=== PATIENT | female | born 1935 | race Caucasian/White ===

== ENCOUNTER → 2016-10-10 | Outpatient (CLI) | payer MEDICARE, OTHER ==
[~2016-10-10] MED LIST: GABA-488 PO; GLIP10TA13 PO; HYDR-3812 PO; LISI10TA2 PO; LISI5TAB14 PO; LVT.1T PO; METF-380 PO; SITA100T PO; TRAM-42 PO
--- OUTSIDE RECORDS SUMMARY | 2016-10-10 10:57 | XMS REPORT | Continuity of Care Document ---
Author Author [facility] Organization [facility] Address Unknown Phone Unavailable Care Team Providers Care Supervising Architect Name Role Phone JUANITA MASCORRO MD PCP Insurance Providers Payer Name Policy Number Subscriber Name Relationship [employer] [id number] Edson Zabala 18 Self / Same As Patient Comm Crossover Enter Ins Name [id number] Edson Zabala 18 Self / Same As Patient Advance Directives Directive Response Recorded Date/Time Advance Directives No 05/01/16 11:07am Health Care Power of Automated Teller Manager No 05/01/16 11:07am Organ Donor Yes 05/01/16 11:07am Resuscitation Status Full Code 05/01/16 11:07am Problems No problem information available. Medications Current Home Medications Medication Dose Units Route Directions Days/Qty Instructions Start Date Glipizide (Glucotrol) 10 Mg 10 Mg Oral Bedtime 02/15/15 Gabapentin 300 Mg 300 Mg Oral Three Times A Day 02/15/15 Levothyroxine Sodium (Levothroid) 100 Mcg 100 Mcg Oral Daily Metformin Hcl (Glucophage) 1,000 Mg 1,000 Mg Oral Bedtime 02/15/15 Sitagliptin Phosphate 100 Mg 100 Mg Oral Bedtime 02/15/15 Lisinopril 10 Mg 5 Mg Oral Daily TAKE 1/2 OF (10MG) TAB 02/19/15 Hydrocodone/Acetaminophen 1 Each 1 Each Oral Every 4HRS as needed for Pain 04/29/15 Tramadol Hcl 50 Mg 50 Mg Oral Every 12 Hours as needed for Pain 30 Past Home Medications Medication Directions Ordered Status Lisinopril (Lisinopril 5MG) 5 Mg Tablet, 5 Mg Oral Daily 02/15/15 Discontinued Social History Social History Problem Response Recorded Date/Time Alcohol Use Denies Use 04/30/2015 12:23pm Recreational Drug Use No 04/30/2015 12:23pm Recent Foreign Travel No 05/01/2016 11:16am Recent Infectious Disease Exposure No 05/01/2016 11:16am Smoking Status Never a Smoker 05/01/2016 11:15am Do you dip or chew tobacco? No 02/22/2015 12:00pm Query Response Start Date Stop Date Smoking Status Never a Smoker Hospital Discharge Instructions Patient Instructions Physician Instructions New, Converted or Re-Newed RX: Other Plan of Care/Instructions/FU: repeat colonoscopy in 2 years Activity as Tolerated: Yes Discharge Diet: ADA Diet Pneu Vac Indicated: Yes Care Plan Patient Instructions:: repeat colonoscopy in 2 years Plan of Care Discharge Date 05/01/16 2:10pm Instructions/Education Provided COLONOSCOPY Prescriptions See Medication Section Functional Status No functional status results. Allergies, Adverse Reactions, Alerts Allergen Type Severity Reaction Status Last Updated Morphine Allergy Unknown Active 05/06/15 hydrocodone ([id number]) Allergy Unknown Active 05/06/15 Acetaminophen Allergy Unknown Active 05/06/15 Ibuprofen Allergy Unknown Active 05/06/15 ofloxacin ([id number]) Allergy Unknown Active 05/06/15 loratadine ([id number]) Allergy Unknown Active 05/06/15 atorvastatin ([id number]) Allergy Unknown Active 05/06/15 Immunizations No immunization records. Vital Signs Acute Vital Signs Vital Response Date/Time Temperature (Fahrenheit) 98.4 degrees F (97.6 - 99.5) 05/01/2016 2:10pm Temperature (Calculated Celsius) 36.03139 degrees C (36.4 - 37.5) 05/01/2016 2:10pm Temperature Source Tympanic 05/01/2016 2:10pm Pulse Rate (adult) 67 bpm (60 - 90) 05/01/2016 2:10pm Respiratory Rate 20 bpm (12 - 24) 05/01/2016 2:10pm O2 Sat by Pulse Oximetry 97 % (88 - 100) 05/01/2016 2:10pm Blood Pressure 120/52 mm Hg 05/01/2016 2:10pm Pain Numeric Pain Scale 0-No Pain 05/01/2016 2:10pm Pain Intensity 0 05/01/2016 2:00pm Height (Feet) 5 feet 05/01/2016 11:17am Height (Inches) 0.00 inches 05/01/2016 11:17am Height (Calculated Centimeters) 152.990496 cm 05/01/2016 11:17am Weight (Pounds) 151 pounds 05/01/2016 11:17am Weight (Ounces) 0.0 oz 05/01/2016 11:17am Weight (Calculated Grams) 76130.45 gm 05/01/2016 11:17am Weight (Calculated Kilograms) 68.658404 kilograms 05/01/2016 11:17am Calculated BMI 29.5 05/01/2016 11:17am Results No known relevant diagnostic tests, laboratory data and/or discharge summary. Procedures No known history of procedures. Encounters Encounter Location Arrival/Admit Date Discharge/Depart Date Attending Provider Departed [facility] 05/01/16 10:47am 05/01/16 2:10pm ROSEANNA ARIAS MD Departed Clinic [facility] 04/27/16 5:37am 04/27/16 12: 58pm ROSEANNA ARIAS MD Registered Clinic [facility] 04/11/16 11:03am TYRA LEZAMA
== END ==
LOC: FS 10:54
PROVIDERS: ATTEND Internal Medicine Hematology & Oncology
DX: C50.111 Malignant neoplasm of central portion of right female breast (principal); E11.40 Type 2 diabetes mellitus with diabetic neuropathy, unspecified; G62.9 Polyneuropathy, unspecified; I10 Essential (primary) hypertension; E78.00 Pure hypercholesterolemia, unspecified; L20.9 Atopic dermatitis, unspecified; Z17.1 Estrogen receptor negative status [ER-]; Z90.11 Acquired absence of right breast and nipple; Z79.899 Other long term (current) drug therapy; Z92.21 Personal history of antineoplastic chemotherapy; Z92.3 Personal history of irradiation
CPT/HCPCS: 99213

== ENCOUNTER → 2017-01-09 | Outpatient (CLI) | payer MEDICARE, OTHER | LOC: FS 13:29 | PROVIDERS: ATTEND Internal Medicine Hematology & Oncology | DX: C50.111 Malignant neoplasm of central portion of right female breast (principal); E11.40 Type 2 diabetes mellitus with diabetic neuropathy, unspecified; G62.9 Polyneuropathy, unspecified; I10 Essential (primary) hypertension; E78.00 Pure hypercholesterolemia, unspecified; Z17.1 Estrogen receptor negative status [ER-]; Z90.11 Acquired absence of right breast and nipple; Z79.899 Other long term (current) drug therapy; Z92.21 Personal history of antineoplastic chemotherapy; Z92.3 Personal history of irradiation | CPT/HCPCS: 99213 ==

== ENCOUNTER 2017-01-24 11:31 | Outpatient (CLI) | payer MEDICARE, OTHER ==
[~2017-01-24] VITALS: Ht 152.4 cm; Wt 69.9 kg
[2017-01-24 11:43] VITALS: BP 145/62
== END 2017-01-24 11:55 | disposition home or self-care (01) ==
LOC: PREOP 11:31
PROVIDERS: ATTEND Surgery
DX: Z01.818 Encounter for other preprocedural examination (principal); Z11.2 Encounter for screening for other bacterial diseases; C50.919 Malignant neoplasm of unspecified site of unspecified female breast
CPT/HCPCS: 87081

== ENCOUNTER 2017-01-31 09:50 | Day surgery (SDC) | payer MEDICARE, OTHER ==
[~2017-01-31] VITALS: Ht 152.4 cm; Wt 69.9 kg
[2017-01-31] MEDS ORDERED: ONDANSETRON 4 MG/2 ML (SDV) Z0FRAN ONE (10:14)
[2017-01-31] MEDS ORDERED: LACTATED RINGERS 1,000 ML IV PRN (10:14)
[2017-01-31] MEDS ORDERED: fentaNYL INJECTION 100 MCG/2 ML AMP ONE (10:14)
[2017-01-31] MEDS ORDERED: LACTATED RINGERS 1,000 ML IV ONE (10:14)
[2017-01-31] MEDS ORDERED: MIDAZOLAM 10 MG/2 ML (VERSED) VIAL ONE (10:14)
[2017-01-31] MEDS ORDERED: BUP/EPI 0.25% 1:200,000 (MARCAINE) 10 ML VIAL IJ ONE (10:16)
[2017-01-31 10:20] VITALS: BP 153/66
[2017-01-31] MEDS ORDERED: NS (IVPB) 50 ML ONE (10:32)
[2017-01-31] MEDS ORDERED: ceFAZolin 1,000 MG (ANCEF) VIAL ONE (10:32)
--- NOTE | 2017-01-31 10:38 | Progress Note-Pre Operative ---
Pre-Operative Progress Note H&P Reviewed The H&P was reviewed, patient examined and no changes noted. Date Seen by Provider: Jan 31, 2017 Time Seen by Provider: 10:38 Date H&P Reviewed: Jan 31, 2017 Time H&P Reviewed: 10:38 Pre-Operative Diagnosis: treated breast carcinoma ROSEANNA ARIAS MD Jan 31, 2017 10:38 am
--- OUTSIDE RECORDS SUMMARY | 2017-01-31 10:43 | XMS REPORT | Continuity of Care Document ---
Author Author [facility] Organization [facility] Address Unknown Phone Unavailable Allergies Active Description Code Type Severity Reaction Onset Reported/Identified Relationship to Patient Clinical Status Yes No Known Allergies [id number] Drug Allergy Unknown N/A 02/04/2015 Yes loratadine [id number] Drug Allergy Unknown N/A 05/06/2015 Yes morphine [id number] Drug Allergy Unknown N/A 05/06/2015 Yes ofloxacin [id number] Drug Allergy Unknown N/A 05/06/2015 Yes acetaminophen [id number] Drug Allergy Unknown N/A 05/01/2016 Yes atorvastatin [id number] Drug Allergy Unknown N/A 05/01/2016 Yes hydrocodone [id number] Drug Allergy Unknown N/A 05/01/2016 Yes ibuprofen [id number] Drug Allergy Unknown N/A 05/01/2016 Medications Problems Date Dx Coded Attending Type Code Diagnosis Diagnosed By 01/22/2015 TYRA LEZAMA N Ot 611.72 01/27/2015 TYRA LEZAMA N Ot 611.72 02/10/2015 TEJA, BOBAN N Ot 174.9 02/15/2015 JUANA SALMON, ROSEANNA Avery Ot 211.3 BENIGN NEOPLASM LG BOWEL 02/15/2015 JUANA SALMON, ROSEANNA Avery Ot V10.3 HX OF BREAST MALIGNANCY 02/15/2015 JUANA SALMON, ROESANNA Avery Ot V58.69 OT MED,LT,CURRENT USE 02/18/2015 TEJA, BOBAN N Ot 250.00 02/18/2015 TEJA, BOBAN N Ot 355.8 02/18/2015 TEJA, BOBAN N Ot 724.00 02/18/2015 TEJA BOBAN N Ot V10.3 02/18/2015 TEJA, BOBAN N Ot V58.69 02/18/2015 TEJA, BOBAN N Ot V67.1 02/18/2015 TEJA, BOBAN N Ot V67.2 02/24/2015 JUANA SALMON, ROSEANNA Avery Ot 174.9 02/24/2015 JUANA SALMON, ROSEANNA Avery Ot 250.00 02/24/2015 ROSEANNA ARIAS MD Ot 174.9 MALIGN NEOPL BREAST NOS 02/24/2015 JUANA SALMON, ROSEANNA Avery Ot 250.00 DIAB JOSÉ WO COMPL, TYPE II OR UNSPEC TY 02/24/2015 TYRA LEZAMA N Ot 174.9 02/26/2015 TYRA LEZAMA Ot 174.9 02/26/2015 CHON SALMON FACC, ALI FACP CCDS Ot 174.9 02/26/2015 CHON SALMON FACC, ALI FACP CCDS Ot 250.00 02/26/2015 CHON SALMON FACC, ALI FACP CCDS Ot 272.4 02/26/2015 CHON SALMON FACC, ALI FACP CCDS Ot 278.00 02/26/2015 CHON SALMON FACC, ALI FACP CCDS Ot 401.9 02/26/2015 CHON SALMON FACC, ALI FACP CCDS Ot V85.30 03/05/2015 TYRA LEZAMA Ot 174.9 03/15/2015 ROSEANNA ARIAS MD Ot 174.9 03/15/2015 JUANA SALMON, ROSEANNA Avery Ot V72.63 03/15/2015 JUANA SALMON, ROSEANNA Avery Ot V74.8 03/25/2015 TYRA LEZAMA Ot 174.9 03/25/2015 TYRA LEZAMA Ot 174.9 03/25/2015 CHON SALMON FACC, ALI FACP CCDS Ot 174.9 03/25/2015 CHON SALMON FACC, ALI FACP CCDS Ot 250.00 03/25/2015 CHON SALMON FACC, ALI FACP CCDS Ot 272.4 03/25/2015 CHON SALMON FACC, ALI FACP CCDS Ot 278.00 03/25/2015 CHON SALMON FACC, ALI FACP CCDS Ot 401.9 03/25/2015 CHON SALMON FACC, ALI FACP CCDS Ot V85.30 03/25/2015 TYRA LEZAMA N Ot 174.9 04/30/2015 ROSEANNA ARIAS MD Ot 174.9 MALIGN NEOPL BREAST NOS 04/30/2015 ROSEANNA ARIAS MD Ot 250.00 DIAB JOSÉ WO COMPL, TYPE II OR UNSPEC TY 04/30/2015 JUANA SALMON, ROSEANNA M Ot 786.6 04/30/2015 JUANA SALMON, ROSEANNA M Ot V45.71 05/19/2015 TEJA, BOBAN N Ot 174.9 05/19/2015 TEJA, BOBAN N Ot V15.3 05/19/2015 TEJA, BOBAN N Ot V45.71 05/19/2015 TEJA, BOBAN N Ot V58.69 05/19/2015 TEJA, BOBAN N Ot V87.41 05/31/2015 PASTRANA HILAH S AEROSPACE MEDICINE PHYSICIAN Ot C50.911 05/31/2015 PASTRANA, HILAH S AEROSPACE MEDICINE PHYSICIAN Ot E11.9 05/31/2015 PASTRANA, HILAH S AEROSPACE MEDICINE PHYSICIAN Ot E78.0 05/31/2015 PASTRANA, HILAH S AEROSPACE MEDICINE PHYSICIAN Ot G62.9 05/31/2015 PASTRANA, HILAH S AEROSPACE MEDICINE PHYSICIAN Ot I10 05/31/2015 PASTRANA HILAH S AEROSPACE MEDICINE PHYSICIAN Ot Z17.1 05/31/2015 PASTRANA, HILAH S AEROSPACE MEDICINE PHYSICIAN Ot Z79.899 05/31/2015 PASTRANA, HILAH S AEROSPACE MEDICINE PHYSICIAN Ot Z90.11 05/31/2015 PASTRANA, HILAH S AEROSPACE MEDICINE PHYSICIAN Ot Z92.21 05/31/2015 PASTRANA HILAH S AEROSPACE MEDICINE PHYSICIAN Ot Z92.3 06/03/2015 TEJA, BOBAN N Ot C50.911 06/03/2015 TEJA, BOBAN N Ot E11.9 06/03/2015 TEJA, BOBAN N Ot E78.0 06/03/2015 TEJA, BOBAN N Ot G62.9 06/03/2015 TEJA, BOBAN N Ot I10 06/03/2015 TEJA, BOBAN N Ot Z17.1 06/03/2015 TEJA, BOBAN N Ot Z51.11 06/03/2015 TEJA, BOBAN N Ot Z79.899 06/03/2015 TEJA, BOBAN N Ot Z90.11 06/03/2015 TEJA, BOBAN N Ot Z92.21 06/03/2015 TEJA, BOBAN N Ot Z92.3 06/30/2015 TEJA, BOBAN N Ot C50.911 06/30/2015 TEJA, BOBAN N Ot E11.9 06/30/2015 TEJA, VIRGILIOAN N Ot E78.0 06/30/2015 TEJA, BOBAN N Ot G62.9 06/30/2015 TEJA, BOBAN N Ot I10 06/30/2015 TEJA, BOBAN N Ot Z17.1 06/30/2015 TEJA, BOBAN N Ot Z51.11 06/30/2015 TEJA, BOBAN N Ot Z79.899 06/30/2015 TEJA, BOBAN N Ot Z90.11 06/30/2015 TEJA, BOBAN N Ot Z92.21 06/30/2015 TEJA, BOBAN N Ot Z92.3 2015 TEJA, BOBAN N Ot C50.911 2015 TEJA, TYRA N Ot E11.9 2015 TEJA, BOBSARAH N Ot E78.0 2015 TEJA, BOBAN N Ot G62.9 2015 TEJA, TYRA N Ot I10 2015 TEJA, BOBSARAH N Ot Z17.1 2015 TEJA, BOBAN N Ot Z51.11 2015 TEJA, BOBAN N Ot Z79.899 2015 TEJA, BOBAN N Ot Z90.11 2015 TEJA, BOBAN N Ot Z92.21 2015 TEJA, BOBAN N Ot Z92.3 08/04/2015 TEJA, BOBAN N Ot 174.9 MALIGN NEOPL BREAST NOS 08/04/2015 TEJA BOBAN N Ot 250.00 DIAB JOSÉ WO COMPL, TYPE II OR UNSPEC TY 08/04/2015 TEJA, BOBAN N Ot 272.0 PURE HYPERCHOLESTEROLEM 08/04/2015 TEJA BOBAN N Ot 357.9 INFLAM/TOX NEUROPTHY NOS 08/04/2015 TEJA, BOBAN N Ot C50.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 08/04/2015 TEJAVIRGILIOAN N Ot E11.9 TYPE 2 DIABETES MELLITUS WITHOUT COMPLIC 08/04/2015 TEJA BOBAN N Ot E78.0 PURE HYPERCHOLESTEROLEMIA 08/04/2015 TEJAVIRGILIOAN N Ot G62.9 POLYNEUROPATHY, UNSPECIFIED 08/04/2015 TEJA BOBAN N Ot I10 ESSENTIAL (PRIMARY) HYPERTENSION 08/04/2015 TYRA LEZAMA Ot V15.3 HX OF IRRADIATION 08/04/2015 TYRA LZEAMA Ot V45.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 08/04/2015 TYRA LEZAMA Ot V58.11 ENCOUNTER FOR ANTINEOPLASTIC CHEMOTHERAP 08/04/2015 TYRA LEZAMA Ot V58.69 OTH MED,LT,CURRENT USE 08/04/2015 TYRA LEZAMA Ot V86.1 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 [ER-] 08/04/2015 TYRA LEZAMA Ot V87.41 PERSONAL HISTORY OF ANTINEOPLASTIC CHEMO 08/04/2015 TYRA LEZAMA Ot 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-] 08/04/2015 TYRA LEZAMA Ot Z51.11 ENCOUNTER FOR ANTINEOPLASTIC CHEMOTHERAP 08/04/2015 TYRA LEZAMA Ot 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 08/04/2015 TYRA LEZAMA Ot Z90.11 ACQUIRED ABSENCE OF RIGHT BREAST AND NIP 08/04/2015 TYRA LEZAMA Ot Z92.21 PERSONAL HISTORY OF ANTINEOPLASTIC CHEMO 08/04/2015 TYRA LEZAMA Ot Z92.3 PERSONAL HISTORY OF IRRADIATION 09/22/2015 LIZBETH PASTRANA AEROSPACE MEDICINE PHYSICIAN Ot C50.111 09/22/2015 LIZBETH PASTRANA AEROSPACE MEDICINE PHYSICIAN Ot E11.40 09/22/2015 LIZBETH PASTRANA AEROSPACE MEDICINE PHYSICIAN Ot E11.9 09/22/2015 LIZBETH PASTRANA AEROSPACE MEDICINE PHYSICIAN Ot E78.0 09/22/2015 LIZBETH PASTRANA AEROSPACE MEDICINE PHYSICIAN Ot I10 09/22/2015 LIZBETH PASTRANA AEROSPACE MEDICINE PHYSICIAN Ot Z17.1 09/22/2015 LIZBETH PASTRANA AEROSPACE MEDICINE PHYSICIAN Ot Z79.899 09/22/2015 LIZBETH PASTRANA AEROSPACE MEDICINE PHYSICIAN Ot Z90.11 09/29/2015 TYRA LEZAMA Gasper Ot C50.911 09/29/2015 TYRA LEZAMA Gasper Ot E11.9 09/29/2015 TYRA LEZAMA Gasper Ot E78.0 09/29/2015 TYRA LEZAMA Gasper Ot G62.9 09/29/2015 TYRA LEZAMA Gasper Ot I10 09/29/2015 TEJA, BOBAN N Ot Z17.1 09/29/2015 TEJA, BOBAN N Ot Z51.11 09/29/2015 TEJA, BOBAN N Ot Z79.899 09/29/2015 TEJA, BOBAN N Ot Z90.11 09/29/2015 TEJA, BOBAN N Ot Z92.21 09/29/2015 TEJA, BOBAN N Ot Z92.3 10/06/2015 TEJA, BOBAN N Ot C50.911 10/06/2015 TEJA, BOBAN N Ot E11.9 10/06/2015 TEJA, BOBAN N Ot E78.0 10/06/2015 TEJA, BOBAN N Ot G62.9 10/06/2015 TEJA, BOBAN N Ot I10 10/06/2015 TEJA, BOBAN N Ot Z17.1 10/06/2015 TEJA, BOBAN N Ot Z79.899 10/06/2015 TEJA, TYRA N Ot Z90.11 10/06/2015 TEJA, TYRA N Ot Z92.21 10/06/2015 TEJA, TYRA N Ot Z92.3 10/21/2015 LIZBETH PASTRANA S AEROSPACE MEDICINE PHYSICIAN Ot C50.111 10/21/2015 LIZBETH PASTRANA S AEROSPACE MEDICINE PHYSICIAN Ot C50.911 10/21/2015 LIZBETH PASTRANA S AEROSPACE MEDICINE PHYSICIAN Ot E11.40 10/21/2015 LIZBETH PASTRANA S AEROSPACE MEDICINE PHYSICIAN Ot E11.9 10/21/2015 LIZBETH PASTRANA S AEROSPACE MEDICINE PHYSICIAN Ot E78.0 10/21/2015 HEATHER PASTRANAAH S AEROSPACE MEDICINE PHYSICIAN Ot G62.9 10/21/2015 LIZBETH PASTRANA S AEROSPACE MEDICINE PHYSICIAN Ot I10 10/21/2015 HEATHER PASTRANAAH S AEROSPACE MEDICINE PHYSICIAN Ot Z17.1 10/21/2015 LIZBETH PASTRANA S AEROSPACE MEDICINE PHYSICIAN Ot Z79.899 10/21/2015 HEATHER PASTRANAAH S AEROSPACE MEDICINE PHYSICIAN Ot Z90.11 10/21/2015 LIZBETH PASTRANA S AEROSPACE MEDICINE PHYSICIAN Ot Z92.21 10/21/2015 LIZBETH PASTRANA S AEROSPACE MEDICINE PHYSICIAN Ot Z92.3 10/28/2015 TEJA, VIRGILIOAN N Ot C50.911 10/28/2015 TEJA, BOBAN N Ot E11.9 10/28/2015 TEJATYRA AZEVEDO N Ot E78.0 10/28/2015 TEJATYRA AZEVEDO N Ot G62.9 10/28/2015 TEJA TYRA N Ot I10 10/28/2015 TEJATYRA AZEVEDO Gasper Ot Z17.1 10/28/2015 TYRA LEZAMA N Ot Z79.899 10/28/2015 TYRA LEZAMA N Ot Z90.11 10/28/2015 TYRA LEZAMA N Ot Z92.21 10/28/2015 TYRA LEZAMA Gasper Ot Z92.3 11/09/2015 TYRA LEZAMA Gasper Ot C50.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 11/09/2015 TEJA VIRGILIOSARAH Gasper Ot E11.9 TYPE 2 DIABETES MELLITUS WITHOUT COMPLIC 11/09/2015 TYRA LEZAMA Gasper Ot E78.0 PURE HYPERCHOLESTEROLEMIA 11/09/2015 TYRA LEZAMA Gasper Ot G62.9 POLYNEUROPATHY, UNSPECIFIED 11/09/2015 TEJA VIRGILIOSARAH Gasper Ot I10 ESSENTIAL (PRIMARY) HYPERTENSION 11/09/2015 TYRA LEZAMA N Ot 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-] 11/09/2015 TYRA LEZAMA N Ot Z51.11 ENCOUNTER FOR ANTINEOPLASTIC CHEMOTHERAP 11/09/2015 TEJA VIRGILIOSARAH Gasper Ot Z79.899 OTHER CUSTODIAL (CURRENT) DRUG THERAPY 11/09/2015 TEJA TYRA N Ot Z90.11 ACQUIRED ABSENCE OF RIGHT BREAST AND NIP 11/09/2015 TYRA LEZAMA N Ot Z92.21 PERSONAL HISTORY OF ANTINEOPLASTIC CHEMO 11/09/2015 TEJAVIRGILIOSARAH N Ot Z92.3 PERSONAL HISTORY OF IRRADIATION 11/10/2015 TEJA TYRA N Ot C50.111 11/10/2015 TEJATYRA N Ot E11.40 11/10/2015 TEJATYRA N Ot E11.9 11/10/2015 TEJATYRA N Ot E78.0 11/10/2015 TEJATYRA N Ot I10 11/10/2015 TEJA TYRA N Ot L20.9 11/10/2015 TEJATYRA N Ot Z17.1 11/10/2015 TEJATYRA N Ot Z79.899 11/10/2015 TEJATYRA AZEVEDO N Ot Z90.11 11/10/2015 TEJATYRA AZEVEDO N Ot Z92.21 11/10/2015 TEJATYRA AZEVEDO N Ot Z92.3 11/10/2015 TEJATYRA AZEVEDO N Ot C50.111 11/10/2015 TEJATYRA AZEVEDO N Ot E11.40 11/10/2015 TEJATYRA AZEVEDO N Ot E11.9 11/10/2015 TEJATYRA AZEVEDO N Ot E78.0 11/10/2015 TEJATYRA AZEVEDO N Ot I10 11/10/2015 TEJA, BOBAN N Ot L20.9 11/10/2015 TEJAVIRGILIO AZEVEDOAN N Ot Z17.1 11/10/2015 TEJA, BOBAN N Ot Z79.899 11/10/2015 TEJATYRA AZEVEDO N Ot Z90.11 11/10/2015 TEJATYRA AZEVEDO N Ot Z92.21 11/10/2015 TEJATYRA AZEVEDO N Ot Z92.3 11/30/2015 TEJATYRA AZEVEDO N Ot 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 11/30/2015 TYRA LEZAMA N Ot 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 N 11/30/2015 TYRA LEZAMA N Ot E11.9 TYPE 2 DIABETES MELLITUS WITHOUT COMPLIC 11/30/2015 TYRA LEZAMA N Ot E78.0 PURE HYPERCHOLESTEROLEMIA 11/30/2015 TYRA LEZAMA N Ot I10 ESSENTIAL (PRIMARY) HYPERTENSION 11/30/2015 TYRA LEZAMA N Ot L20.9 ATOPIC DERMATITIS, UNSPECIFIED 11/30/2015 TYRA LEZAMA N Ot 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-] 11/30/2015 TYRA LEZAMA N Ot Z79.899 OTHER CUSTODIAL (CURRENT) DRUG THERAPY 11/30/2015 TYRA LEZAMA N Ot Z90.11 ACQUIRED ABSENCE OF RIGHT BREAST AND NIP 11/30/2015 TYRA LEZAMA N Ot Z92.21 PERSONAL HISTORY OF ANTINEOPLASTIC CHEMO 11/30/2015 TYRA LEZAMA N Ot Z92.3 PERSONAL HISTORY OF IRRADIATION 01/17/2016 TYRA LEZAMA N Ot 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 01/17/2016 TYRA LEZAMA N Ot 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 N 01/17/2016 TYRA LEZAMA N Ot E11.9 TYPE 2 DIABETES MELLITUS WITHOUT COMPLIC 01/17/2016 TYRA LEZAMA Ot E78.0 PURE HYPERCHOLESTEROLEMIA 01/17/2016 TYRA LEZAMA N Ot I10 ESSENTIAL (PRIMARY) HYPERTENSION 01/17/2016 TYRA LEZAMA Ot L20.9 ATOPIC DERMATITIS, UNSPECIFIED 01/17/2016 TYRA LEZAMA Ot 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-] 01/17/2016 TYRA LEZAMA Ot 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 01/17/2016 TYRA LEZAMA Ot Z90.11 ACQUIRED ABSENCE OF RIGHT BREAST AND NIP 01/17/2016 TYRA LEZAMA Ot Z92.21 PERSONAL HISTORY OF ANTINEOPLASTIC CHEMO 01/17/2016 TYRA LEZAMA N Ot Z92.3 PERSONAL HISTORY OF IRRADIATION 02/01/2016 TYRA LEZAMA Ot 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 02/01/2016 TYRA LEZAMA Ot 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 N 02/01/2016 TYRA LEZAMA N Ot E11.9 TYPE 2 DIABETES MELLITUS WITHOUT COMPLIC 02/01/2016 TYRA LEZAMA N Ot E78.0 PURE HYPERCHOLESTEROLEMIA 02/01/2016 TYRA LEZAMA N Ot I10 ESSENTIAL (PRIMARY) HYPERTENSION 02/01/2016 TYRA LEZAMA Ot L20.9 ATOPIC DERMATITIS, UNSPECIFIED 02/01/2016 TYRA LEZAMA Ot 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-] 02/01/2016 TYRA LEZAMA Ot Z79.899 OTHER CUSTODIAL (CURRENT) DRUG THERAPY 02/01/2016 TYRA LEZAMA Ot Z90.11 ACQUIRED ABSENCE OF RIGHT BREAST AND NIP 02/01/2016 TYRA LEZAMA N Ot Z92.21 PERSONAL HISTORY OF ANTINEOPLASTIC CHEMO 02/01/2016 TYRA LEZAMA N Ot Z92.3 PERSONAL HISTORY OF IRRADIATION 03/21/2016 Ot 355.8 MONONEURITIS LEG NOS 03/21/2016 Ot 724.00 SPINAL STENOSIS NOS 03/21/2016 Ot V10.3 HX OF BREAST MALIGNANCY 03/21/2016 Ot V58.69 OTH MED,LT,CURRENT USE 03/21/2016 Ot V67.1 RADIOTHERAPY FOLLOW-UP 03/21/2016 Ot V67.2 CHEMOTHERAPY FOLLOW-UP 03/21/2016 Ot 355.8 MONONEURITIS LEG NOS 03/21/2016 Ot 724.00 SPINAL STENOSIS NOS 03/21/2016 Ot V10.3 HX OF BREAST MALIGNANCY 03/21/2016 Ot V58.69 OTH MED,LT,CURRENT USE 03/21/2016 Ot V67.1 RADIOTHERAPY FOLLOW-UP 03/21/2016 Ot V67.2 CHEMOTHERAPY FOLLOW-UP 03/21/2016 Ot V76.12 OTH SCREEN MAMMO-MALIGN NEOPLASM OF [place]QUE 03/21/2016 Ot 355.8 MONONEURITIS LEG NOS 03/21/2016 Ot 599.0 URIN TRACT INFECTION NOS 03/21/2016 Ot 719.41 JOINT PAIN-SHLDER 03/21/2016 Ot 724.00 SPINAL STENOSIS NOS 03/21/2016 Ot V10.3 HX OF BREAST MALIGNANCY 03/21/2016 Ot V58.69 OTH MED,LT,CURRENT USE 03/21/2016 Ot V67.1 RADIOTHERAPY FOLLOW-UP 03/21/2016 Ot V67.2 CHEMOTHERAPY FOLLOW-UP 03/21/2016 Ot 355.8 MONONEURITIS LEG NOS 03/21/2016 Ot 724.00 SPINAL STENOSIS NOS 03/21/2016 Ot V10.3 HX OF BREAST MALIGNANCY 03/21/2016 Ot V58.69 OTH MED,LT,CURRENT USE 03/21/2016 Ot V67.1 RADIOTHERAPY FOLLOW-UP 03/21/2016 Ot V67.2 CHEMOTHERAPY FOLLOW-UP 03/21/2016 Ot 724.00 SPINAL STENOSIS NOS 03/21/2016 Ot V10.3 HX OF BREAST MALIGNANCY 03/21/2016 Ot V58.69 OTH MED,LT,CURRENT USE 03/21/2016 Ot V67.1 RADIOTHERAPY FOLLOW-UP 03/21/2016 Ot V67.2 CHEMOTHERAPY FOLLOW-UP 03/21/2016 Ot 174.9 MALIGN NEOPL BREAST NOS 03/21/2016 TYRA LEZAMA Ot 250.00 DIAB JOSÉ WO COMPL, TYPE II OR UNSPEC TY 03/21/2016 TYRA LEZAMA Ot 355.8 MONONEURITIS LEG NOS 03/21/2016 TYRA LEZAMA Ot 724.00 SPINAL STENOSIS NOS 03/21/2016 TEJA, BOBAN N Ot V10.3 HX OF BREAST MALIGNANCY 03/21/2016 TYRA LEZAMA N Ot V58.69 OTH MED,LT,CURRENT USE 03/21/2016 TYRA LEZAMA N Ot V67.1 RADIOTHERAPY FOLLOW-UP 03/21/2016 TEJA BOBSARAH N Ot V67.2 CHEMOTHERAPY FOLLOW-UP 03/21/2016 TYRA LEZAMA N Ot 174.9 MALIGN NEOPL BREAST NOS 03/21/2016 TYRA LEZAMA N Ot 793.89 OTH (ABN) FINDINGS ON RADIOLOGICAL EXAMI 03/21/2016 TYRA LEZAMA N Ot V76.11 SCRN MAMMO-HIGH RISK PT, MALIGNANT NEOPL 03/21/2016 LIZBETH PASTRANA AEROSPACE MEDICINE PHYSICIAN Ot 174.9 MALIGN NEOPL BREAST NOS 03/21/2016 LIZBETH PASTRANA AEROSPACE MEDICINE PHYSICIAN Ot 793.80 UNSPEC ABNORMAL MAMMOGRAM 03/21/2016 TYRA LEZAMA N Ot 250.00 DIAB JOSÉ WO COMPL, TYPE II OR UNSPEC TY 03/21/2016 TEJA BOBAN N Ot 355.8 MONONEURITIS LEG NOS 03/21/2016 TEJA BOBAN N Ot 724.00 SPINAL STENOSIS NOS 03/21/2016 TYRA LEZAMA N Ot V10.3 HX OF BREAST MALIGNANCY 03/21/2016 TYRA LEZAMA N Ot V58.69 OTH MED,LT,CURRENT USE 03/21/2016 TEJA BOBSARAH N Ot V67.1 RADIOTHERAPY FOLLOW-UP 03/21/2016 TEJA BOBSARAH N Ot V67.2 CHEMOTHERAPY FOLLOW-UP 03/21/2016 TYRA LEZAMA N Ot 174.9 MALIGN NEOPL BREAST NOS 03/21/2016 TEJA BOBSARAH N Ot 250.00 DIAB JOSÉ WO COMPL, TYPE II OR UNSPEC TY 03/21/2016 TEJA BOBAN N Ot 355.8 MONONEURITIS LEG NOS 03/21/2016 TEJA BOBAN N Ot 724.00 SPINAL STENOSIS NOS 03/21/2016 TEJA BOBSARAH N Ot V10.3 HX OF BREAST MALIGNANCY 03/21/2016 TYRA LEZAMA N Ot V58.69 OTH MED,LT,CURRENT USE 03/21/2016 TEJA BOBSARAH N Ot V67.1 RADIOTHERAPY FOLLOW-UP 03/21/2016 TEJA BOBAN N Ot V67.2 CHEMOTHERAPY FOLLOW-UP 03/21/2016 TYRA LEZAMA N Ot 174.9 MALIGN NEOPL BREAST NOS 03/21/2016 TYRA LEZAMA N Ot 174.9 MALIGN NEOPL BREAST NOS 03/21/2016 TYRA LEZAMA N Ot 250.00 DIAB JOSÉ WO COMPL, TYPE II OR UNSPEC TY 03/21/2016 TYRA LEZAMA N Ot 355.8 MONONEURITIS LEG NOS 03/21/2016 TYRA LEZAMA N Ot 724.00 SPINAL STENOSIS NOS 03/21/2016 TYRA LEZAMA N Ot V10.3 HX OF BREAST MALIGNANCY 03/21/2016 TYRA LEZAMA N Ot V58.69 OTH MED,LT,CURRENT USE 03/21/2016 TYRA LEZAMA N Ot V67.1 RADIOTHERAPY FOLLOW-UP 03/21/2016 TYRA LEZAMA N Ot V67.2 CHEMOTHERAPY FOLLOW-UP 03/21/2016 TYRA LEZAMA N Ot 174.9 MALIGN NEOPL BREAST NOS 03/21/2016 TYRA LEZAMA N Ot 174.9 MALIGN NEOPL BREAST NOS 03/21/2016 CHON SALMON FACC, ALI FACP CCDS Ot 174.9 MALIGN NEOPL BREAST NOS 03/21/2016 CHON SALMON FACC, ALI FACP CCDS Ot 250.00 DIAB JOSÉ WO COMPL, TYPE II OR UNSPEC TY 03/21/2016 CHON SALMON FACC, ALI FACP CCDS Ot 272.4 HYPERLIPIDEMIA NEC/NOS 03/21/2016 CHON SALMON FACC, ALI FACP CCDS Ot 278.00 OBESITY, NOS 03/21/2016 CHON SALMON FACC, ALI FACP CCDS Ot 401.9 HYPERTENSION NOS 03/21/2016 CHON SALMON FACC, ALI FACP CCDS Ot V85.30 BODY MASS INDEX 30.0-30.9, ADULT 03/21/2016 ROSEANNA ARIAS MD Ot V72.84 EXAM PRE-OPERATIVE NOS 03/21/2016 ROSEANNA ARIAS MD Ot 174.9 MALIGN NEOPL BREAST NOS 03/21/2016 ROSEANNA ARIAS MD Ot V72.63 PRE-PROCEDURAL LABORATORY EXAMINATION 03/21/2016 ROSEANNA ARIAS MD Ot V74.8 SCREEN-BACTERIAL DIS NEC 03/21/2016 ROSEANNA ARIAS MD Ot 786.6 CHEST SWELLING/MASS/LUMP 03/21/2016 JUANA SALMON, ROSEANNA Avery Ot V45.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 03/21/2016 TYRA LEZAMA Ot 174.9 MALIGN NEOPL BREAST NOS 03/21/2016 TYRA LEZAMA Ot V15.3 HX OF IRRADIATION 03/21/2016 TYRA LEZAMA Ot V45.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 03/21/2016 TYRA LEZAMA Ot V58.69 OTH MED,LT,CURRENT USE 03/21/2016 TYRA LEZAMA Ot V87.41 PERSONAL HISTORY OF ANTINEOPLASTIC CHEMO 03/21/2016 JUANA SALMON, ROSEANNA Avery Ot V10.3 HX OF BREAST MALIGNANCY 03/21/2016 JUANA SALMON, ROSEANNA Avery Ot V72.84 EXAM PRE-OPERATIVE NOS 03/21/2016 LIZBETH PASTRANA AEROSPACE MEDICINE PHYSICIAN Ot C50.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 03/21/2016 LIZBETH PASTRANA AEROSPACE MEDICINE PHYSICIAN Ot E11.9 TYPE 2 DIABETES MELLITUS WITHOUT COMPLIC 03/21/2016 LIZBETH PASTRANA AEROSPACE MEDICINE PHYSICIAN Ot E78.0 PURE HYPERCHOLESTEROLEMIA 03/21/2016 LIZBETH PASTRANA AEROSPACE MEDICINE PHYSICIAN Ot G62.9 POLYNEUROPATHY, UNSPECIFIED 03/21/2016 LIZBETH PASTRANA AEROSPACE MEDICINE PHYSICIAN Ot I10 ESSENTIAL (PRIMARY) HYPERTENSION 03/21/2016 LIZBETH PASTRANA AEROSPACE MEDICINE PHYSICIAN Ot 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-] 03/21/2016 LIZBETH PASTRANA AEROSPACE MEDICINE PHYSICIAN Ot Z79.899 OTHER CUSTODIAL (CURRENT) DRUG THERAPY 03/21/2016 LIZBETH PASTRANA AEROSPACE MEDICINE PHYSICIAN Ot Z90.11 ACQUIRED ABSENCE OF RIGHT BREAST AND NIP 03/21/2016 LIZBETH PASTRANA AEROSPACE MEDICINE PHYSICIAN Ot Z92.21 PERSONAL HISTORY OF ANTINEOPLASTIC CHEMO 03/21/2016 LIZBETH PASTRANA AEROSPACE MEDICINE PHYSICIAN Ot Z92.3 PERSONAL HISTORY OF IRRADIATION 03/21/2016 LIZBETH PASTRANA AEROSPACE MEDICINE PHYSICIAN Ot 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 03/21/2016 LIZBETH PASTRANA AEROSPACE MEDICINE PHYSICIAN Ot 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 N 03/21/2016 LIZBETH PASTRANA AEROSPACE MEDICINE PHYSICIAN Ot 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-] 03/21/2016 LIZBETH PASTRANA AEROSPACE MEDICINE PHYSICIAN Ot 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 03/21/2016 PASTRANALIZBETH Aguilera AEROSPACE MEDICINE PHYSICIAN Ot Z90.11 ACQUIRED ABSENCE OF RIGHT BREAST AND NIP 03/21/2016 PASTRANALIZBETH Aguilera AEROSPACE MEDICINE PHYSICIAN Ot 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 03/21/2016 PASTRANALIZBETH Aguilera AEROSPACE MEDICINE PHYSICIAN Ot 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 N 03/21/2016 PASTRANALIZBETH Aguilera AEROSPACE MEDICINE PHYSICIAN Ot E11.9 TYPE 2 DIABETES MELLITUS WITHOUT COMPLIC 03/21/2016 PASTRANALIZBETH Aguilera AEROSPACE MEDICINE PHYSICIAN Ot E78.0 PURE HYPERCHOLESTEROLEMIA 03/21/2016 PASTRANALIZBETH Aguilera AEROSPACE MEDICINE PHYSICIAN Ot I10 ESSENTIAL (PRIMARY) HYPERTENSION 03/21/2016 PASTRANALIZBETH Aguilera AEROSPACE MEDICINE PHYSICIAN Ot 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-] 03/21/2016 PASTRANALIZBETH Aguilera AEROSPACE MEDICINE PHYSICIAN Ot 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 03/21/2016 VICTORIANO LIZBETH Aguilera AEROSPACE MEDICINE PHYSICIAN Ot Z90.11 ACQUIRED ABSENCE OF RIGHT BREAST AND NIP 03/21/2016 PASTRANALIZBETH Aguilera AEROSPACE MEDICINE PHYSICIAN Ot 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 03/21/2016 PASTRANALIZBETH Aguilera AEROSPACE MEDICINE PHYSICIAN Ot C50.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 03/21/2016 PASTRANALIZBETH Aguilera AEROSPACE MEDICINE PHYSICIAN Ot 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 N 03/21/2016 PASTRANALIZBETH Aguilera AEROSPACE MEDICINE PHYSICIAN Ot E11.9 TYPE 2 DIABETES MELLITUS WITHOUT COMPLIC 03/21/2016 VICTORIANO LIZBETH Aguilera AEROSPACE MEDICINE PHYSICIAN Ot E78.0 PURE HYPERCHOLESTEROLEMIA 03/21/2016 VICTORIANOLIZBETH AEROSPACE MEDICINE PHYSICIAN Ot G62.9 POLYNEUROPATHY, UNSPECIFIED 03/21/2016 PASTRANALIZBETH Aguilera AEROSPACE MEDICINE PHYSICIAN Ot I10 ESSENTIAL (PRIMARY) HYPERTENSION 03/21/2016 VICTORIANOLIZBETH AEROSPACE MEDICINE PHYSICIAN Ot 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-] 03/21/2016 VICTORIANO LIZBETH Aguilera AEROSPACE MEDICINE PHYSICIAN Ot 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 03/21/2016 VICTORIANO LIZBETH Aguilera AEROSPACE MEDICINE PHYSICIAN Ot Z90.11 ACQUIRED ABSENCE OF RIGHT BREAST AND NIP 03/21/2016 VICTORIANO LIZBETH Aguilera AEROSPACE MEDICINE PHYSICIAN Ot Z92.21 PERSONAL HISTORY OF ANTINEOPLASTIC CHEMO 03/21/2016 HEATHER PASTRANAMILES Aguilera AEROSPACE MEDICINE PHYSICIAN Ot Z92.3 PERSONAL HISTORY OF IRRADIATION 03/21/2016 TYRA LEZAMA N Ot 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 03/21/2016 TYRA LEZAMA N Ot 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 N 03/21/2016 TYRA LEZAMA N Ot E11.9 TYPE 2 DIABETES MELLITUS WITHOUT COMPLIC 03/21/2016 TYRA LEZAMA N Ot E78.0 PURE HYPERCHOLESTEROLEMIA 03/21/2016 TYRA LEZAMA N Ot I10 ESSENTIAL (PRIMARY) HYPERTENSION 03/21/2016 TYRA LEZAMA N Ot L20.9 ATOPIC DERMATITIS, UNSPECIFIED 03/21/2016 TEJATYRA AZEVEDO N Ot 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-] 03/21/2016 TYRA LEZAMA N Ot 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 03/21/2016 TEJATYRA AZEVEDO N Ot Z90.11 ACQUIRED ABSENCE OF RIGHT BREAST AND NIP 03/21/2016 TYRA LEZAMA N Ot Z92.21 PERSONAL HISTORY OF ANTINEOPLASTIC CHEMO 03/21/2016 TYRA LEZAMA N Ot Z92.3 PERSONAL HISTORY OF IRRADIATION 03/21/2016 TYRA LEZAMA N Ot C50.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 03/21/2016 TYRA LEZAMA N Ot E11.9 TYPE 2 DIABETES MELLITUS WITHOUT COMPLIC 03/21/2016 TYRA LEZAMA N Ot E78.0 PURE HYPERCHOLESTEROLEMIA 03/21/2016 TYRA LEZAMA N Ot G62.9 POLYNEUROPATHY, UNSPECIFIED 03/21/2016 TYRA LEZAMA N Ot I10 ESSENTIAL (PRIMARY) HYPERTENSION 03/21/2016 TYRA LEZAMA N Ot 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-] 03/21/2016 TYRA LEZAMA N Ot Z79.899 OTHER CUSTODIAL (CURRENT) DRUG THERAPY 03/21/2016 TYRA LEZAMA N Ot Z90.11 ACQUIRED ABSENCE OF RIGHT BREAST AND NIP 03/21/2016 TYRA LEZAMA N Ot Z92.21 PERSONAL HISTORY OF ANTINEOPLASTIC CHEMO 03/21/2016 TYRA LEZAMA N Ot Z92.3 PERSONAL HISTORY OF IRRADIATION 03/21/2016 TYRA LEZAMA N Ot 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 03/21/2016 TYRA LEZAMA N Ot 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 N 03/21/2016 TYRA LEZAMA N Ot E11.9 TYPE 2 DIABETES MELLITUS WITHOUT COMPLIC 03/21/2016 TYRA LEZAMA N Ot E78.0 PURE HYPERCHOLESTEROLEMIA 03/21/2016 TYRA LEZAMA N Ot I10 ESSENTIAL (PRIMARY) HYPERTENSION 03/21/2016 TYRA LEZAMA N Ot L20.9 ATOPIC DERMATITIS, UNSPECIFIED 03/21/2016 TYRA LEZAMA N Ot 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-] 03/21/2016 TYRA LEZAMA N Ot 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 03/21/2016 TYRA LEZAMA N Ot Z90.11 ACQUIRED ABSENCE OF RIGHT BREAST AND NIP 03/21/2016 TYRA LEZAMA N Ot Z92.21 PERSONAL HISTORY OF ANTINEOPLASTIC CHEMO 03/21/2016 TYRA LEZAMA N Ot Z92.3 PERSONAL HISTORY OF IRRADIATION 03/22/2016 CHNO SALMON FAC, ALI FACP CCDS Ot 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 03/22/2016 CHON SALMON FACC, ALI FACP CCDS Ot E11.9 TYPE 2 DIABETES MELLITUS WITHOUT COMPLIC 03/22/2016 CHON SALMON FAC, ALI FACP CCDS Ot E78.0 PURE HYPERCHOLESTEROLEMIA 03/22/2016 CHON SALMON FACC, ALI FACP CCDS Ot I10 ESSENTIAL (PRIMARY) HYPERTENSION 04/12/2016 TYRA LEZAMA N Ot 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 04/12/2016 TYRA LEZAMA N Ot 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 N 04/12/2016 TYRA LEZAMA N Ot E78.0 PURE HYPERCHOLESTEROLEMIA 04/12/2016 TYRA LEZAMA N Ot I10 ESSENTIAL (PRIMARY) HYPERTENSION 04/12/2016 TYRA LEZAMA N Ot L20.9 ATOPIC DERMATITIS, UNSPECIFIED 04/12/2016 TYRA LEZAMA N Ot 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-] 04/12/2016 TYRA LEZAMA N Ot 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 04/12/2016 TYRA LEZAMA N Ot Z90.11 ACQUIRED ABSENCE OF RIGHT BREAST AND NIP 04/12/2016 TYRA LEZAMA N Ot Z92.21 PERSONAL HISTORY OF ANTINEOPLASTIC CHEMO 04/12/2016 TYRA LEZAMA Gasper Ot Z92.3 PERSONAL HISTORY OF IRRADIATION 04/14/2016 CHON SALMON [facility] CCDS Ot 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 04/14/2016 CHON SALMON FAC, [facility] FACP CCDS Ot E11.9 TYPE 2 DIABETES MELLITUS WITHOUT COMPLIC 04/14/2016 CHON SALMON [facility] CCDS Ot E78.0 PURE HYPERCHOLESTEROLEMIA 04/14/2016 CHON SALMON [facility] CCDS Ot I10 ESSENTIAL (PRIMARY) HYPERTENSION 04/27/2016 JUANA SALMON, ROSEANNA Avery Ot Z01.818 ENCOUNTER FOR OTHER PREPROCEDURAL EXAMIN 04/27/2016 JUANA SALMON, ROSEANNA Avery Ot Z86.010 PERSONAL HISTORY OF COLONIC POLYPS 04/28/2016 JUANA SALMON, ROSEANNA Avery Ot Z01.818 ENCOUNTER FOR OTHER PREPROCEDURAL EXAMIN 04/28/2016 JUANA SALMON, ROSEANNA Avery Ot Z86.010 PERSONAL HISTORY OF COLONIC POLYPS 05/01/2016 Ot 355.8 MONONEURITIS LEG NOS 05/01/2016 Ot 724.00 SPINAL STENOSIS NOS 05/01/2016 Ot V10.3 HX OF BREAST MALIGNANCY 05/01/2016 Ot V58.69 OTH MED,LT,CURRENT USE 05/01/2016 Ot V67.1 RADIOTHERAPY FOLLOW-UP 05/01/2016 Ot V67.2 CHEMOTHERAPY FOLLOW-UP 05/01/2016 Ot 355.8 MONONEURITIS LEG NOS 05/01/2016 Ot 724.00 SPINAL STENOSIS NOS 05/01/2016 Ot V10.3 HX OF BREAST MALIGNANCY 05/01/2016 Ot V58.69 OTH MED,LT,CURRENT USE 05/01/2016 Ot V67.1 RADIOTHERAPY FOLLOW-UP 05/01/2016 Ot V67.2 CHEMOTHERAPY FOLLOW-UP 05/01/2016 Ot V76.12 OTH SCREEN MAMMO-MALIGN NEOPLASM OF [place] 05/01/2016 Ot 355.8 MONONEURITIS LEG NOS 05/01/2016 Ot 599.0 URIN TRACT INFECTION NOS 05/01/2016 Ot 719.41 JOINT PAIN-SHLDER 05/01/2016 Ot 724.00 SPINAL STENOSIS NOS 05/01/2016 Ot V10.3 HX OF BREAST MALIGNANCY 05/01/2016 Ot V58.69 OTH MED,LT,CURRENT USE 05/01/2016 Ot V67.1 RADIOTHERAPY FOLLOW-UP 05/01/2016 Ot V67.2 CHEMOTHERAPY FOLLOW-UP 05/01/2016 Ot 355.8 MONONEURITIS LEG NOS 05/01/2016 Ot 724.00 SPINAL STENOSIS NOS 05/01/2016 Ot V10.3 HX OF BREAST MALIGNANCY 05/01/2016 Ot V58.69 OTH MED,LT,CURRENT USE 05/01/2016 Ot V67.1 RADIOTHERAPY FOLLOW-UP 05/01/2016 Ot V67.2 CHEMOTHERAPY FOLLOW-UP 05/01/2016 Ot 724.00 SPINAL STENOSIS NOS 05/01/2016 Ot V10.3 HX OF BREAST MALIGNANCY 05/01/2016 Ot V58.69 OTH MED,LT,CURRENT USE 05/01/2016 Ot V67.1 RADIOTHERAPY FOLLOW-UP 05/01/2016 Ot V67.2 CHEMOTHERAPY FOLLOW-UP 05/01/2016 Ot 174.9 MALIGN NEOPL BREAST NOS 05/01/2016 TYRA LEZAMA Ot 250.00 DIAB JOSÉ WO COMPL, TYPE II OR UNSPEC TY 05/01/2016 TYRA LEZAMA Ot 355.8 MONONEURITIS LEG NOS 05/01/2016 TYRA LEZAMA N Ot 724.00 SPINAL STENOSIS NOS 05/01/2016 TYRA LEZAMA Ot V10.3 HX OF BREAST MALIGNANCY 05/01/2016 TYRA LEZAMA Ot V58.69 OTH MED,LT,CURRENT USE 05/01/2016 TYRA LEZAMA Ot V67.1 RADIOTHERAPY FOLLOW-UP 05/01/2016 TYRA LEZAMA Ot V67.2 CHEMOTHERAPY FOLLOW-UP 05/01/2016 TYRA LEZAMA Ot 174.9 MALIGN NEOPL BREAST NOS 05/01/2016 TYRA LEZAMA Ot 793.89 OTH (ABN) FINDINGS ON RADIOLOGICAL EXAMI 05/01/2016 TYRA LEZAMA Ot V76.11 SCRN MAMMO-HIGH RISK PT, MALIGNANT NEOPL 05/01/2016 LIZBETH PASTRANA AEROSPACE MEDICINE PHYSICIAN Ot 174.9 MALIGN NEOPL BREAST NOS 05/01/2016 LIZBETH PASTRANA AEROSPACE MEDICINE PHYSICIAN Ot 793.80 UNSPEC ABNORMAL MAMMOGRAM 05/01/2016 TEJA, BOBAN N Ot 250.00 DIAB JOSÉ WO COMPL, TYPE II OR UNSPEC TY 05/01/2016 TEJA, BOBAN N Ot 355.8 MONONEURITIS LEG NOS 05/01/2016 TEJA, BOBAN N Ot 724.00 SPINAL STENOSIS NOS 05/01/2016 TEJA, BOBAN N Ot V10.3 HX OF BREAST MALIGNANCY 05/01/2016 TEJA, BOBAN N Ot V58.69 OTH MED,LT,CURRENT USE 05/01/2016 TEJA, BOBAN N Ot V67.1 RADIOTHERAPY FOLLOW-UP 05/01/2016 TEJA, BOBAN N Ot V67.2 CHEMOTHERAPY FOLLOW-UP 05/01/2016 TEJA, BOBAN N Ot 174.9 MALIGN NEOPL BREAST NOS 05/01/2016 TEJA, BOBAN N Ot 250.00 DIAB JOSÉ WO COMPL, TYPE II OR UNSPEC TY 05/01/2016 TEJA, BOBAN N Ot 355.8 MONONEURITIS LEG NOS 05/01/2016 TEJA, BOBAN N Ot 724.00 SPINAL STENOSIS NOS 05/01/2016 TEJA, BOBAN N Ot V10.3 HX OF BREAST MALIGNANCY 05/01/2016 TEJA, BOBAN N Ot V58.69 OTH MED,LT,CURRENT USE 05/01/2016 TEJA, BOBAN N Ot V67.1 RADIOTHERAPY FOLLOW-UP 05/01/2016 TEJA, BOBAN N Ot V67.2 CHEMOTHERAPY FOLLOW-UP 05/01/2016 TEJA, BOBAN N Ot 174.9 MALIGN NEOPL BREAST NOS 05/01/2016 TEJA, BOBAN N Ot 174.9 MALIGN NEOPL BREAST NOS 05/01/2016 TEJA, BOBAN N Ot 250.00 DIAB JOSÉ WO COMPL, TYPE II OR UNSPEC TY 05/01/2016 TEJA, BOBAN N Ot 355.8 MONONEURITIS LEG NOS 05/01/2016 TEJA, BOBAN N Ot 724.00 SPINAL STENOSIS NOS 05/01/2016 TEJA, BOBAN N Ot V10.3 HX OF BREAST MALIGNANCY 05/01/2016 TEJA, BOBAN N Ot V58.69 OTH MED,LT,CURRENT USE 05/01/2016 TEJA, BOBAN N Ot V67.1 RADIOTHERAPY FOLLOW-UP 05/01/2016 TEJA, BOBAN N Ot V67.2 CHEMOTHERAPY FOLLOW-UP 05/01/2016 TYRA LEZAMA Ot 174.9 MALIGN NEOPL BREAST NOS 05/01/2016 TYRA LEZAMA Ot 174.9 MALIGN NEOPL BREAST NOS 05/01/2016 CHON SALMON FAC, ALI FACP CCDS Ot 174.9 MALIGN NEOPL BREAST NOS 05/01/2016 CHON SALMON FAC, ALI FACP CCDS Ot 250.00 DIAB JOSÉ WO COMPL, TYPE II OR UNSPEC TY 05/01/2016 CHON SALMON FACC, ALI FACP CCDS Ot 272.4 HYPERLIPIDEMIA NEC/NOS 05/01/2016 CHON SALMON FACC, ALI FACP CCDS Ot 278.00 OBESITY, NOS 05/01/2016 CHON SALMON FACC, ALI FACP CCDS Ot 401.9 HYPERTENSION NOS 05/01/2016 CHON SALMON FAC, ALI FACP CCDS Ot V85.30 BODY MASS INDEX 30.0-30.9, ADULT 05/01/2016 JUANA SALMON, ROSEANNA Avery Ot V72.84 EXAM PRE-OPERATIVE NOS 05/01/2016 ROSEANNA ARIAS MD Ot 174.9 MALIGN NEOPL BREAST NOS 05/01/2016 ROSEANNA ARIAS MD Ot V72.63 PRE-PROCEDURAL LABORATORY EXAMINATION 05/01/2016 ROSEANNA ARIAS MD Ot V74.8 SCREEN-BACTERIAL DIS NEC 05/01/2016 ROSEANNA ARIAS MD Ot 786.6 CHEST SWELLING/MASS/LUMP 05/01/2016 ROSEANNA ARIAS MD Ot V45.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 05/01/2016 TYRA LEZAMA Ot 174.9 MALIGN NEOPL BREAST NOS 05/01/2016 TYRA LEZAMA Ot V15.3 HX OF IRRADIATION 05/01/2016 TYRA LEZAMA Ot V45.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 05/01/2016 TYRA LEZAMA Ot V58.69 OTH MED,LT,CURRENT USE 05/01/2016 TYRA LEZAMA Ot V87.41 PERSONAL HISTORY OF ANTINEOPLASTIC CHEMO 05/01/2016 ROSEANNA ARIAS MD Ot V10.3 HX OF BREAST MALIGNANCY 05/01/2016 ROSEANNA ARIAS MD Ot V72.84 EXAM PRE-OPERATIVE NOS 05/01/2016 LIZBETH PASTRANA AEROSPACE MEDICINE PHYSICIAN Ot C50.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 05/01/2016 LIZBETH PASTRANA AEROSPACE MEDICINE PHYSICIAN Ot E11.9 TYPE 2 DIABETES MELLITUS WITHOUT COMPLIC 05/01/2016 PASTRANALIZBETH Aguilera AEROSPACE MEDICINE PHYSICIAN Ot E78.0 PURE HYPERCHOLESTEROLEMIA 05/01/2016 PASTRANALIZBETH Aguilera AEROSPACE MEDICINE PHYSICIAN Ot G62.9 POLYNEUROPATHY, UNSPECIFIED 05/01/2016 PASTRANALIZBETH Aguilera AEROSPACE MEDICINE PHYSICIAN Ot I10 ESSENTIAL (PRIMARY) HYPERTENSION 05/01/2016 VICTORIANO LIZBETH Aguilera AEROSPACE MEDICINE PHYSICIAN Ot 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-] 05/01/2016 VICTORIANO LIZBETH Aguilera AEROSPACE MEDICINE PHYSICIAN Ot 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 05/01/2016 VICTORIANO LIZBETH CORTEZP Ot Z90.11 ACQUIRED ABSENCE OF RIGHT BREAST AND NIP 05/01/2016 VICTORIANO LIZBETH Aguilera AEROSPACE MEDICINE PHYSICIAN Ot Z92.21 PERSONAL HISTORY OF ANTINEOPLASTIC CHEMO 05/01/2016 VICTORIANO LIZBETH Aguilera AEROSPACE MEDICINE PHYSICIAN Ot Z92.3 PERSONAL HISTORY OF IRRADIATION 05/01/2016 HEATHER PASTRANAMILES Aguilera AEROSPACE MEDICINE PHYSICIAN Ot 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 05/01/2016 HEATHER PASTRANAMILES Aguilera AEROSPACE MEDICINE PHYSICIAN Ot 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 N 05/01/2016 VICTORIANO LIZBETH Aguilera AEROSPACE MEDICINE PHYSICIAN Ot 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-] 05/01/2016 VICTORIANO LIZBETH Aguilera AEROSPACE MEDICINE PHYSICIAN Ot Z79.899 OTHER CUSTODIAL (CURRENT) DRUG THERAPY 05/01/2016 VICTORIANO LIZBETH Aguilera AEROSPACE MEDICINE PHYSICIAN Ot Z90.11 ACQUIRED ABSENCE OF RIGHT BREAST AND NIP 05/01/2016 VICTORIANO LIZBETH Aguilera AEROSPACE MEDICINE PHYSICIAN Ot 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 05/01/2016 VICTORIANO LIZBETH Aguilera AEROSPACE MEDICINE PHYSICIAN Ot 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 N 05/01/2016 VICTORIANO LIZBETH Aguilera AEROSPACE MEDICINE PHYSICIAN Ot E11.9 TYPE 2 DIABETES MELLITUS WITHOUT COMPLIC 05/01/2016 VICTORIANO LIZBETH Aguilera AEROSPACE MEDICINE PHYSICIAN Ot E78.0 PURE HYPERCHOLESTEROLEMIA 05/01/2016 VICTORIANO LIZBETH Aguilera AEROSPACE MEDICINE PHYSICIAN Ot I10 ESSENTIAL (PRIMARY) HYPERTENSION 05/01/2016 VICTORIANO LIZBETH Aguilera AEROSPACE MEDICINE PHYSICIAN Ot 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-] 05/01/2016 HEATHER PASTRANAMILES Aguilera AEROSPACE MEDICINE PHYSICIAN Ot Z79.899 OTHER CUSTODIAL (CURRENT) DRUG THERAPY 05/01/2016 LIZBETH PASTRANA AEROSPACE MEDICINE PHYSICIAN Ot Z90.11 ACQUIRED ABSENCE OF RIGHT BREAST AND NIP 05/01/2016 LIZBETH PASTRANAP Ot 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 05/01/2016 LIZBETH PASTRANAP Ot C50.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 05/01/2016 LIZBETH PASTRANA AEROSPACE MEDICINE PHYSICIAN Ot 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 N 05/01/2016 LIZBETH PASTRANA AEROSPACE MEDICINE PHYSICIAN Ot E11.9 TYPE 2 DIABETES MELLITUS WITHOUT COMPLIC 05/01/2016 LIZBETH PASTRANA AEROSPACE MEDICINE PHYSICIAN Ot E78.0 PURE HYPERCHOLESTEROLEMIA 05/01/2016 LIZBETH PASTRANA AEROSPACE MEDICINE PHYSICIAN Ot G62.9 POLYNEUROPATHY, UNSPECIFIED 05/01/2016 LIZBETH PASTRANA AEROSPACE MEDICINE PHYSICIAN Ot I10 ESSENTIAL (PRIMARY) HYPERTENSION 05/01/2016 LIZBETH PASTRANAP Ot 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-] 05/01/2016 LIZBETH PASTRANAP Ot Z79.899 OTHER CUSTODIAL (CURRENT) DRUG THERAPY 05/01/2016 LIZBETH PASTRANA AEROSPACE MEDICINE PHYSICIAN Ot Z90.11 ACQUIRED ABSENCE OF RIGHT BREAST AND NIP 05/01/2016 LIZBETH PASTRANA AEROSPACE MEDICINE PHYSICIAN Ot Z92.21 PERSONAL HISTORY OF ANTINEOPLASTIC CHEMO 05/01/2016 LIZBETH PASTRANA AEROSPACE MEDICINE PHYSICIAN Ot Z92.3 PERSONAL HISTORY OF IRRADIATION 05/01/2016 TEJATYRA AZEVEDO Gasper Ot 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 05/01/2016 TEJA, TYRA Jackman Ot 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 N 05/01/2016 TEJA, TYRA Jackman Ot E11.9 TYPE 2 DIABETES MELLITUS WITHOUT COMPLIC 05/01/2016 TYRA LEZAMA Ot E78.0 PURE HYPERCHOLESTEROLEMIA 05/01/2016 TYRA LEZAMA Ot I10 ESSENTIAL (PRIMARY) HYPERTENSION 05/01/2016 TEJA TYRA Jackman Ot L20.9 ATOPIC DERMATITIS, UNSPECIFIED 05/01/2016 TYRA LEZAMA Ot 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-] 05/01/2016 TYRA LEZAMA Ot 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 05/01/2016 TYRA LEZAMA N Ot Z90.11 ACQUIRED ABSENCE OF RIGHT BREAST AND NIP 05/01/2016 TYRA LEZAMA N Ot Z92.21 PERSONAL HISTORY OF ANTINEOPLASTIC CHEMO 05/01/2016 TYRA LEZAMA N Ot Z92.3 PERSONAL HISTORY OF IRRADIATION 05/01/2016 TYRA LEZAMA Ot C50.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 05/01/2016 TYRA LEZAMA N Ot E11.9 TYPE 2 DIABETES MELLITUS WITHOUT COMPLIC 05/01/2016 TYRA LEZAMA N Ot E78.0 PURE HYPERCHOLESTEROLEMIA 05/01/2016 TYRA LEZAMA N Ot G62.9 POLYNEUROPATHY, UNSPECIFIED 05/01/2016 TYRA LEZAMA N Ot I10 ESSENTIAL (PRIMARY) HYPERTENSION 05/01/2016 TYRA LEZAMA N Ot 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-] 05/01/2016 TYRA LEZAMA N Ot Z79.899 OTHER CUSTODIAL (CURRENT) DRUG THERAPY 05/01/2016 TYRA LEZAMA N Ot Z90.11 ACQUIRED ABSENCE OF RIGHT BREAST AND NIP 05/01/2016 TYRA LEZAMA N Ot Z92.21 PERSONAL HISTORY OF ANTINEOPLASTIC CHEMO 05/01/2016 TYRA LEZAMA N Ot Z92.3 PERSONAL HISTORY OF IRRADIATION 05/01/2016 TYRA LEZAMA Gasper Ot 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 05/01/2016 TYRA LEZAMA N Ot 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 N 05/01/2016 TYRA LEZAMA N Ot E11.9 TYPE 2 DIABETES MELLITUS WITHOUT COMPLIC 05/01/2016 TYRA LEZAMA N Ot E78.0 PURE HYPERCHOLESTEROLEMIA 05/01/2016 TYRA LEZAMA N Ot I10 ESSENTIAL (PRIMARY) HYPERTENSION 05/01/2016 TYRA LEZAMA N Ot L20.9 ATOPIC DERMATITIS, UNSPECIFIED 05/01/2016 TYRA LEZAMA N Ot 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-] 05/01/2016 TYRA LEZAMA N Ot 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 05/01/2016 TYRA LEZAMA N Ot Z90.11 ACQUIRED ABSENCE OF RIGHT BREAST AND NIP 05/01/2016 TYRA LEZAMA N Ot Z92.21 PERSONAL HISTORY OF ANTINEOPLASTIC CHEMO 05/01/2016 TYRA LEZAMA Ot Z92.3 PERSONAL HISTORY OF IRRADIATION 05/01/2016 CHON SALMON [facility] CCDS Ot 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 05/01/2016 CHON SALMON FAC, ALI FACP CCDS Ot E11.9 TYPE 2 DIABETES MELLITUS WITHOUT COMPLIC 05/01/2016 CHON SALMON [facility], ALI FACP CCDS Ot E78.0 PURE HYPERCHOLESTEROLEMIA 05/01/2016 CHON SALMON [facility], ALI FACP CCDS Ot I10 ESSENTIAL (PRIMARY) HYPERTENSION 05/01/2016 TYRA LEZAMA Ot 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 05/01/2016 TYRA LEZAMA Ot 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 N 05/01/2016 TYRA LEZAMA Gasper Ot E78.0 PURE HYPERCHOLESTEROLEMIA 05/01/2016 TYRA LEZAMA Gasper Ot I10 ESSENTIAL (PRIMARY) HYPERTENSION 05/01/2016 TYRA LEZAMA Ot L20.9 ATOPIC DERMATITIS, UNSPECIFIED 05/01/2016 TYRA LEZAMA Gasper Ot 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-] 05/01/2016 TYRA LEZAMA Gasper Ot 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 05/01/2016 TYRA LEZAMA Gasper Ot Z90.11 ACQUIRED ABSENCE OF RIGHT BREAST AND NIP 05/01/2016 TYRA LEZAMA Ot Z92.21 PERSONAL HISTORY OF ANTINEOPLASTIC CHEMO 05/01/2016 TYRA LEZAMA Gasper Ot Z92.3 PERSONAL HISTORY OF IRRADIATION 05/01/2016 ROSEANNA ARIAS MD Ot K57.90 DVRTCLOS OF INTEST, PART UNSP, W/O PERF 05/01/2016 ROSEANNA ARIAS MD Ot K63.5 POLYP OF COLON 05/01/2016 ROSEANNA ARIAS MD Ot Z09 ENCNTR FOR F/U EXAM AFT TRTMT FOR COND O 05/02/2016 ROSEANNA ARIAS MD Ot K57.90 DVRTCLOS OF INTEST, PART UNSP, W/O PERF 05/02/2016 ROSEANNA ARIAS MD Ot K63.5 POLYP OF COLON 05/02/2016 ROSEANNA ARIAS MD Ot Z09 ENCNTR FOR F/U EXAM AFT TRTMT FOR COND O 05/03/2016 JUANA SALMON, ROSEANNA Avery Ot Z01.818 ENCOUNTER FOR OTHER PREPROCEDURAL EXAMIN 05/03/2016 JUANA SALMON, ROSAENNA Aevry Ot Z86.010 PERSONAL HISTORY OF COLONIC POLYPS 05/04/2016 TYRA LEZAMA N Ot 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 05/04/2016 TYRA LEZAMA N Ot 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 N 05/04/2016 TYRA LEZAMA N Ot E78.0 PURE HYPERCHOLESTEROLEMIA 05/04/2016 TYRA LEZAMA N Ot I10 ESSENTIAL (PRIMARY) HYPERTENSION 05/04/2016 TYRA LEZAMA N Ot L20.9 ATOPIC DERMATITIS, UNSPECIFIED 05/04/2016 TEJATYRA AZEVEDO N Ot 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-] 05/04/2016 TYRA LEZAMA N Ot Z79.899 OTHER CUSTODIAL (CURRENT) DRUG THERAPY 05/04/2016 TEJATYRA AZEVEDO N Ot Z90.11 ACQUIRED ABSENCE OF RIGHT BREAST AND NIP 05/04/2016 TYRA LEZAMA N Ot Z92.21 PERSONAL HISTORY OF ANTINEOPLASTIC CHEMO 05/04/2016 TYRA LEZAMA N Ot Z92.3 PERSONAL HISTORY OF IRRADIATION 07/12/2016 TYRA LEZAMA N Ot 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 07/12/2016 TYRA LEZAMA N Ot 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 N 07/12/2016 TYRA LEZAMA N Ot E78.00 PURE HYPERCHOLESTEROLEMIA, UNSPECIFIED 07/12/2016 TYRA LEZAMA N Ot G62.9 POLYNEUROPATHY, UNSPECIFIED 07/12/2016 TYRA LEZAMA N Ot I10 ESSENTIAL (PRIMARY) HYPERTENSION 07/12/2016 TYRA LEZAMA N Ot L20.9 ATOPIC DERMATITIS, UNSPECIFIED 07/12/2016 TEJATYRA N Ot 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0 URIN TRACT INFECTION NOS 07/26/2016 Ot 719.41 JOINT PAIN-SHLDER 07/26/2016 Ot 724.00 SPINAL STENOSIS NOS 07/26/2016 Ot V10.3 HX OF BREAST MALIGNANCY 07/26/2016 Ot V58.69 OTH MED,LT,CURRENT USE 07/26/2016 Ot V67.1 RADIOTHERAPY FOLLOW-UP 07/26/2016 Ot V67.2 CHEMOTHERAPY FOLLOW-UP 07/26/2016 Ot 355.8 MONONEURITIS LEG NOS 07/26/2016 Ot 724.00 SPINAL STENOSIS NOS 07/26/2016 Ot V10.3 HX OF BREAST MALIGNANCY 07/26/2016 Ot V58.69 OTH MED,LT,CURRENT USE 07/26/2016 Ot V67.1 RADIOTHERAPY FOLLOW-UP 07/26/2016 Ot V67.2 CHEMOTHERAPY FOLLOW-UP 07/26/2016 Ot 724.00 SPINAL STENOSIS NOS 07/26/2016 Ot V10.3 HX OF BREAST MALIGNANCY 07/26/2016 Ot V58.69 OTH MED,LT,CURRENT USE 07/26/2016 Ot V67.1 RADIOTHERAPY FOLLOW-UP 07/26/2016 Ot V67.2 CHEMOTHERAPY FOLLOW-UP 07/26/2016 Ot 174.9 MALIGN NEOPL BREAST NOS 07/26/2016 TYRA LEZAMA Ot 250.00 DIAB JOSÉ WO COMPL, TYPE II OR UNSPEC TY 07/26/2016 TYRA LEZAMA Ot 355.8 MONONEURITIS LEG NOS 07/26/2016 TYRA LEZAMA Ot 724.00 SPINAL STENOSIS NOS 07/26/2016 TYRA LEZAMA Ot V10.3 HX OF BREAST MALIGNANCY 07/26/2016 TYRA LEZAMA Ot V58.69 OTH MED,LT,CURRENT USE 07/26/2016 TYRA LEZAMA N Ot V67.1 RADIOTHERAPY FOLLOW-UP 07/26/2016 TEJA, BOBAN N Ot V67.2 CHEMOTHERAPY FOLLOW-UP 07/26/2016 TEJA BOBAN N Ot 174.9 MALIGN NEOPL BREAST NOS 07/26/2016 TYRA LEZAMA N Ot 793.89 OTH (ABN) FINDINGS ON RADIOLOGICAL EXAMI 07/26/2016 TYRA LEZAMA N Ot V76.11 SCRN MAMMO-HIGH RISK PT, MALIGNANT NEOPL 07/26/2016 PASTRANALIZBETH Aguilera S AEROSPACE MEDICINE PHYSICIAN Ot 174.9 MALIGN NEOPL BREAST NOS 07/26/2016 PASTRANALIZBETH Aguilera S AEROSPACE MEDICINE PHYSICIAN Ot 793.80 UNSPEC ABNORMAL MAMMOGRAM 07/26/2016 TEJA BOBAN N Ot 250.00 DIAB JOSÉ WO COMPL, TYPE II OR UNSPEC TY 07/26/2016 TEJA, BOBAN N Ot 355.8 MONONEURITIS LEG NOS 07/26/2016 TEJA, BOBAN N Ot 724.00 SPINAL STENOSIS NOS 07/26/2016 VIRGILIO LEZAMAAN N Ot V10.3 HX OF BREAST MALIGNANCY 07/26/2016 TYRA LEZAMA N Ot V58.69 OTH MED,LT,CURRENT USE 07/26/2016 TEJA BOBAN N Ot V67.1 RADIOTHERAPY FOLLOW-UP 07/26/2016 TEJA BOBAN N Ot V67.2 CHEMOTHERAPY FOLLOW-UP 07/26/2016 TEJA BOBAN N Ot 174.9 MALIGN NEOPL BREAST NOS 07/26/2016 TEJA BOBAN N Ot 250.00 DIAB JOSÉ WO COMPL, TYPE II OR UNSPEC TY 07/26/2016 TEJA BOBAN N Ot 355.8 MONONEURITIS LEG NOS 07/26/2016 TEJA BOBAN N Ot 724.00 SPINAL STENOSIS NOS 07/26/2016 TEJA BOBAN N Ot V10.3 HX OF BREAST MALIGNANCY 07/26/2016 TEJA BOBAN N Ot V58.69 OTH MED,LT,CURRENT USE 07/26/2016 TEJA BOBAN N Ot V67.1 RADIOTHERAPY FOLLOW-UP 07/26/2016 TEJA BOBAN N Ot V67.2 CHEMOTHERAPY FOLLOW-UP 07/26/2016 TEJA BOBAN N Ot 174.9 MALIGN NEOPL BREAST NOS 07/26/2016 TYRA LEZAMA N Ot 174.9 MALIGN NEOPL BREAST NOS 07/26/2016 TYRA LEZAMA N Ot 250.00 DIAB JOSÉ WO COMPL, TYPE II OR UNSPEC TY 07/26/2016 TEJA VIRGILIOSARAH N Ot 355.8 MONONEURITIS LEG NOS 07/26/2016 TYRA LEZAMA Gasper Ot 724.00 SPINAL STENOSIS NOS 07/26/2016 TYRA LEZAMA Gasper Ot V10.3 HX OF BREAST MALIGNANCY 07/26/2016 TYRA LEZAMA Gasper Ot V58.69 OTH MED,LT,CURRENT USE 07/26/2016 TYRA LEZAMA Gasper Ot V67.1 RADIOTHERAPY FOLLOW-UP 07/26/2016 TEJA TYRA N Ot V67.2 CHEMOTHERAPY FOLLOW-UP 07/26/2016 TEJA VIRGILIOSARAH Gasper Ot 174.9 MALIGN NEOPL BREAST NOS 07/26/2016 TYRA LEZAMA Gasper Ot 174.9 MALIGN NEOPL BREAST NOS 07/26/2016 CHON SALMON FACC, ALI FACP CCDS Ot 174.9 MALIGN NEOPL BREAST NOS 07/26/2016 CHON SALMON FACC, ALI FACP CCDS Ot 250.00 DIAB JOSÉ WO COMPL, TYPE II OR UNSPEC TY 07/26/2016 CHON SALMON FACC, ALI FACP CCDS Ot 272.4 HYPERLIPIDEMIA NEC/NOS 07/26/2016 CHON SALMON FACC, ALI FACP CCDS Ot 278.00 OBESITY, NOS 07/26/2016 CHON SALMON FACC, ALI FACP CCDS Ot 401.9 HYPERTENSION NOS 07/26/2016 CHON SALMON FACC, ALI FACP CCDS Ot V85.30 BODY MASS INDEX 30.0-30.9, ADULT 07/26/2016 JUANA SALMON, ROSEANNA Avery Ot V72.84 EXAM PRE-OPERATIVE NOS 07/26/2016 JUANA SALMON, ROSEANNA Avery Ot 174.9 MALIGN NEOPL BREAST NOS 07/26/2016 ROSEANNA ARIAS MD Ot V72.63 PRE-PROCEDURAL LABORATORY EXAMINATION 07/26/2016 ROSEANNA ARIAS MD Ot V74.8 SCREEN-BACTERIAL DIS NEC 07/26/2016 ROSEANNA ARIAS MD Ot 786.6 CHEST SWELLING/MASS/LUMP 07/26/2016 ROSEANNA ARIAS MD Ot V45.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 07/26/2016 TYRA LEZAMA Ot 174.9 MALIGN NEOPL BREAST NOS 07/26/2016 TYRA LEZAMA Ot V15.3 HX OF IRRADIATION 07/26/2016 TYRA LEZAMA Ot V45.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 07/26/2016 TYRA LEZAMA Ot V58.69 OTH MED,LT,CURRENT USE 07/26/2016 TYRA LEZAMA Ot V87.41 PERSONAL HISTORY OF ANTINEOPLASTIC CHEMO 07/26/2016 JUANA SALMON, ROSEANNA Avery Ot V10.3 HX OF BREAST MALIGNANCY 07/26/2016 JUANA SALMON, ROSEANNA Avery Ot V72.84 EXAM PRE-OPERATIVE NOS 07/26/2016 LIZBETH PASTRANA AEROSPACE MEDICINE PHYSICIAN Ot C50.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 07/26/2016 LIZBETH PASTRANA AEROSPACE MEDICINE PHYSICIAN Ot E11.9 TYPE 2 DIABETES MELLITUS WITHOUT COMPLIC 07/26/2016 LIZBETH PASTRANAP Ot E78.0 PURE HYPERCHOLESTEROLEMIA 07/26/2016 LIZBETH PASTRANA AEROSPACE MEDICINE PHYSICIAN Ot G62.9 POLYNEUROPATHY, UNSPECIFIED 07/26/2016 LIZBETH PASTRANA AEROSPACE MEDICINE PHYSICIAN Ot I10 ESSENTIAL (PRIMARY) HYPERTENSION 07/26/2016 LIZBETH PASTRANA AEROSPACE MEDICINE PHYSICIAN Ot 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-] 07/26/2016 LIZBETH PASTRANA AEROSPACE MEDICINE PHYSICIAN Ot 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 07/26/2016 LIZBETH PASTRANA AEROSPACE MEDICINE PHYSICIAN Ot Z90.11 ACQUIRED ABSENCE OF RIGHT BREAST AND NIP 07/26/2016 LIZBETH PASTRANA AEROSPACE MEDICINE PHYSICIAN Ot Z92.21 PERSONAL HISTORY OF ANTINEOPLASTIC CHEMO 07/26/2016 LIZBETH PASTRANA AEROSPACE MEDICINE PHYSICIAN Ot Z92.3 PERSONAL HISTORY OF IRRADIATION 07/26/2016 LIZBETH PASTRANA AEROSPACE MEDICINE PHYSICIAN Ot 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 07/26/2016 LIZBETH PSATRANA AEROSPACE MEDICINE PHYSICIAN Ot 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 N 07/26/2016 LIZBETH PASTRANA AEROSPACE MEDICINE PHYSICIAN Ot 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-] 07/26/2016 LIZBETH PASTRANA AEROSPACE MEDICINE PHYSICIAN Ot 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 07/26/2016 LIZBETH PASTRANA AEROSPACE MEDICINE PHYSICIAN Ot Z90.11 ACQUIRED ABSENCE OF RIGHT BREAST AND NIP 07/26/2016 PASTRANALIZBETH Aguilera AEROSPACE MEDICINE PHYSICIAN Ot 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 07/26/2016 LIZBETH PASTRANA AEROSPACE MEDICINE PHYSICIAN Ot 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 N 07/26/2016 LIZBETH PASTRANA AEROSPACE MEDICINE PHYSICIAN Ot E11.9 TYPE 2 DIABETES MELLITUS WITHOUT COMPLIC 07/26/2016 PASTRANALIZBETH Aguilera AEROSPACE MEDICINE PHYSICIAN Ot E78.0 PURE HYPERCHOLESTEROLEMIA 07/26/2016 PASTRANALIZBETH Aguilera AEROSPACE MEDICINE PHYSICIAN Ot I10 ESSENTIAL (PRIMARY) HYPERTENSION 07/26/2016 PASTRANALIZBETH Aguilera AEROSPACE MEDICINE PHYSICIAN Ot 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-] 07/26/2016 PASTRANALIZBETH Aguilera AEROSPACE MEDICINE PHYSICIAN Ot 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 07/26/2016 VICTORIANOLIZBETH AEROSPACE MEDICINE PHYSICIAN Ot Z90.11 ACQUIRED ABSENCE OF RIGHT BREAST AND NIP 07/26/2016 HEATHER PASTRANAMILES Aguilera AEROSPACE MEDICINE PHYSICIAN Ot 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 07/26/2016 PASTRANALIZBETH Aguilera AEROSPACE MEDICINE PHYSICIAN Ot C50.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 07/26/2016 PASTRANALIZBETH Aguilera AEROSPACE MEDICINE PHYSICIAN Ot 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 N 07/26/2016 PASTRANALIZBETH Aguilera AEROSPACE MEDICINE PHYSICIAN Ot E11.9 TYPE 2 DIABETES MELLITUS WITHOUT COMPLIC 07/26/2016 PASTRANALIZBETH Aguilera AEROSPACE MEDICINE PHYSICIAN Ot E78.0 PURE HYPERCHOLESTEROLEMIA 07/26/2016 PASTRANALIZBETH Aguilera AEROSPACE MEDICINE PHYSICIAN Ot G62.9 POLYNEUROPATHY, UNSPECIFIED 07/26/2016 PASTRANA LIZBETH Aguilera AEROSPACE MEDICINE PHYSICIAN Ot I10 ESSENTIAL (PRIMARY) HYPERTENSION 07/26/2016 VICTORIANO LIZBETH Aguilera AEROSPACE MEDICINE PHYSICIAN Ot 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-] 07/26/2016 VICTORIANO LIZBETH Aguilera AEROSPACE MEDICINE PHYSICIAN Ot 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 07/26/2016 VICTORIANO LIZBETH Aguilera AEROSPACE MEDICINE PHYSICIAN Ot Z90.11 ACQUIRED ABSENCE OF RIGHT BREAST AND NIP 07/26/2016 LIZBETH PASTRANA Ale AEROSPACE MEDICINE PHYSICIAN Ot Z92.21 PERSONAL HISTORY OF ANTINEOPLASTIC CHEMO 07/26/2016 LIZBETH PASTRANA Ale AEROSPACE MEDICINE PHYSICIAN Ot Z92.3 PERSONAL HISTORY OF IRRADIATION 07/26/2016 TYRA LEZAMA Ot 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 07/26/2016 TYRA LEZAMA N Ot 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 N 07/26/2016 TYRA LEZAMA N Ot E11.9 TYPE 2 DIABETES MELLITUS WITHOUT COMPLIC 07/26/2016 TYRA LEZAMA N Ot E78.0 PURE HYPERCHOLESTEROLEMIA 07/26/2016 TYRA LEZAMA N Ot I10 ESSENTIAL (PRIMARY) HYPERTENSION 07/26/2016 TYRA LEZAMA N Ot L20.9 ATOPIC DERMATITIS, UNSPECIFIED 07/26/2016 TYRA LEZAMA N Ot 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-] 07/26/2016 TYRA LEZAMA N Ot 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 07/26/2016 TYRA LEZAMA N Ot Z90.11 ACQUIRED ABSENCE OF RIGHT BREAST AND NIP 07/26/2016 TYRA LEZAMA N Ot Z92.21 PERSONAL HISTORY OF ANTINEOPLASTIC CHEMO 07/26/2016 TYRA LEZAMA N Ot Z92.3 PERSONAL HISTORY OF IRRADIATION 07/26/2016 TYRA LEZAMA N Ot C50.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 07/26/2016 TYRA LEZAMA N Ot E11.9 TYPE 2 DIABETES MELLITUS WITHOUT COMPLIC 07/26/2016 TYRA LEZAMA N Ot E78.0 PURE HYPERCHOLESTEROLEMIA 07/26/2016 TYRA LEZAMA N Ot G62.9 POLYNEUROPATHY, UNSPECIFIED 07/26/2016 TYRA LEZAMA N Ot I10 ESSENTIAL (PRIMARY) HYPERTENSION 07/26/2016 TYRA LEZAMA N Ot 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-] 07/26/2016 TYRA LEZAMA N Ot Z79.899 OTHER CUSTODIAL (CURRENT) DRUG THERAPY 07/26/2016 TYRA LEZAMA N Ot Z90.11 ACQUIRED ABSENCE OF RIGHT BREAST AND NIP 07/26/2016 TYRA LEZAMA N Ot Z92.21 PERSONAL HISTORY OF ANTINEOPLASTIC CHEMO 07/26/2016 TYRA LEZAMA N Ot Z92.3 PERSONAL HISTORY OF IRRADIATION 07/26/2016 TYRA LEZAMA N Ot 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 07/26/2016 TYRA LEZAMA N Ot 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 N 07/26/2016 TYRA LEZAMA N Ot E11.9 TYPE 2 DIABETES MELLITUS WITHOUT COMPLIC 07/26/2016 TYRA LEZAMA N Ot E78.0 PURE HYPERCHOLESTEROLEMIA 07/26/2016 TYRA LEZAMA N Ot I10 ESSENTIAL (PRIMARY) HYPERTENSION 07/26/2016 TYRA LEZAMA N Ot L20.9 ATOPIC DERMATITIS, UNSPECIFIED 07/26/2016 TYRA LEZAMA N Ot 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-] 07/26/2016 TYRA LEZAMA N Ot Z79.899 OTHER CUSTODIAL (CURRENT) DRUG THERAPY 07/26/2016 TYRA LEZAMA N Ot Z90.11 ACQUIRED ABSENCE OF RIGHT BREAST AND NIP 07/26/2016 TYRA LEZAMA N Ot Z92.21 PERSONAL HISTORY OF ANTINEOPLASTIC CHEMO 07/26/2016 TYRA LEZAMA N Ot Z92.3 PERSONAL HISTORY OF IRRADIATION 07/26/2016 CHON SALMON FACC, ALI FACP CCDS Ot 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 07/26/2016 CHON SALMON FACC, ALI FACP CCDS Ot E11.9 TYPE 2 DIABETES MELLITUS WITHOUT COMPLIC 07/26/2016 CHON SALMON FACC, ALI FACP CCDS Ot E78.0 PURE HYPERCHOLESTEROLEMIA 07/26/2016 CHON SALMON FACC, ALI FACP CCDS Ot I10 ESSENTIAL (PRIMARY) HYPERTENSION 07/26/2016 TYRA LEZAMA N Ot 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 07/26/2016 TYRA LEZAMA N Ot 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 N 07/26/2016 TYRA LEZAMA N Ot E78.0 PURE HYPERCHOLESTEROLEMIA 07/26/2016 TYRA LEZAMA N Ot I10 ESSENTIAL (PRIMARY) HYPERTENSION 07/26/2016 TYRA LEZAMA N Ot L20.9 ATOPIC DERMATITIS, UNSPECIFIED 07/26/2016 TYRA LEZAMA N Ot 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-] 07/26/2016 TYRA LEZAMA N Ot Z79.899 OTHER CUSTODIAL (CURRENT) DRUG THERAPY 07/26/2016 TYRA LEZAMA N Ot Z90.11 ACQUIRED ABSENCE OF RIGHT BREAST AND NIP 07/26/2016 TYRA LEZAMA N Ot Z92.21 PERSONAL HISTORY OF ANTINEOPLASTIC CHEMO 07/26/2016 TYRA LEZAMA N Ot Z92.3 PERSONAL HISTORY OF IRRADIATION 07/26/2016 TYRA LEZAMA N Ot 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 07/26/2016 TYRA LEZAMA N Ot 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 N 07/26/2016 TYRA LEZAMA N Ot E78.00 PURE HYPERCHOLESTEROLEMIA, UNSPECIFIED 07/26/2016 TYRA LEZAMA N Ot G62.9 POLYNEUROPATHY, UNSPECIFIED 07/26/2016 TYRA LEZAMA N Ot I10 ESSENTIAL (PRIMARY) HYPERTENSION 07/26/2016 TYRA LEZAMA N Ot L20.9 ATOPIC DERMATITIS, UNSPECIFIED 07/26/2016 TYRA LEZAMA N Ot 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-] 07/26/2016 TYRA LEZAMA N Ot 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 07/26/2016 TYRA LEZAMA N Ot Z90.11 ACQUIRED ABSENCE OF RIGHT BREAST AND NIP 07/26/2016 TYRA LEZAMA N Ot Z92.21 PERSONAL HISTORY OF ANTINEOPLASTIC CHEMO 07/26/2016 TYRA LEZAMA N Ot Z92.3 PERSONAL HISTORY OF IRRADIATION 08/02/2016 TYRA LEZAMA N Ot Z12.31 ENCNTR SCREEN MAMMOGRAM FOR MALIGNANT NE 08/02/2016 TYRA LEZAMA N Ot Z12.31 ENCNTR SCREEN MAMMOGRAM FOR MALIGNANT NE 08/02/2016 TYRA LEZAMA N Ot Z85.3 PERSONAL HISTORY OF MALIGNANT NEOPLASM O 08/03/2016 TYRA LEZAMA Ot 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 08/03/2016 TYRA LEZAMA Ot 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 N 08/03/2016 TYRA LEZAMA N Ot E78.00 PURE HYPERCHOLESTEROLEMIA, UNSPECIFIED 08/03/2016 TYRA LEZAMA N Ot G62.9 POLYNEUROPATHY, UNSPECIFIED 08/03/2016 TYRA LEZAMA N Ot I10 ESSENTIAL (PRIMARY) HYPERTENSION 08/03/2016 TYRA LEZAMA N Ot L20.9 ATOPIC DERMATITIS, UNSPECIFIED 08/03/2016 TYRA LEZAMA N Ot 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-] 08/03/2016 TYRA LEZAMA N Ot Z79.899 OTHER CUSTODIAL (CURRENT) DRUG THERAPY 08/03/2016 TYRA LEZAMA Ot Z90.11 ACQUIRED ABSENCE OF RIGHT BREAST AND NIP 08/03/2016 TYRA LEZAMA Ot Z92.21 PERSONAL HISTORY OF ANTINEOPLASTIC CHEMO 08/03/2016 TYRA LEZAMA Ot Z92.3 PERSONAL HISTORY OF IRRADIATION 08/25/2016 TYRA LEZAMA Ot Z12.31 ENCNTR SCREEN MAMMOGRAM FOR MALIGNANT NE 08/25/2016 TYRA LEZAMA Ot Z85.3 PERSONAL HISTORY OF MALIGNANT NEOPLASM O 11/02/2016 TYRA LEZAMA Ot 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 11/02/2016 TYRA LEZAMA Ot 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 N 11/02/2016 TYRA LEZAMA Ot E78.00 PURE HYPERCHOLESTEROLEMIA, UNSPECIFIED 11/02/2016 TYRA LEZAMA Ot G62.9 POLYNEUROPATHY, UNSPECIFIED 11/02/2016 TYRA LEZAMA Ot I10 ESSENTIAL (PRIMARY) HYPERTENSION 11/02/2016 TYRA LEZAMA Ot L20.9 ATOPIC DERMATITIS, UNSPECIFIED 11/02/2016 TYRA LEZAMA Ot 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-] 11/02/2016 TYRA LEZAMA Ot 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 11/02/2016 TYRA LEZAMA Ot Z90.11 ACQUIRED ABSENCE OF RIGHT BREAST AND NIP 11/02/2016 TYRA LEZAMA Ot Z92.21 PERSONAL HISTORY OF ANTINEOPLASTIC CHEMO 11/02/2016 TYRA LEZAMA Ot Z92.3 PERSONAL HISTORY OF IRRADIATION 01/18/2017 Ot 355.8 MONONEURITIS LEG NOS 01/18/2017 Ot 724.00 SPINAL STENOSIS NOS 01/18/2017 Ot V10.3 HX OF BREAST MALIGNANCY 01/18/2017 Ot V58.69 OTH MED,LT,CURRENT USE 01/18/2017 Ot V67.1 RADIOTHERAPY FOLLOW-UP 01/18/2017 Ot V67.2 CHEMOTHERAPY FOLLOW-UP 01/18/2017 Ot 724.00 SPINAL STENOSIS NOS 01/18/2017 Ot V10.3 HX OF BREAST MALIGNANCY 01/18/2017 Ot V58.69 OTH MED,LT,CURRENT USE 01/18/2017 Ot V67.1 RADIOTHERAPY FOLLOW-UP 01/18/2017 Ot V67.2 CHEMOTHERAPY FOLLOW-UP 01/18/2017 Ot 174.9 MALIGN NEOPL BREAST NOS 01/18/2017 TYRA LEZAMA N Ot 250.00 DIAB JOSÉ WO COMPL, TYPE II OR UNSPEC TY 01/18/2017 TEJA BOBAN N Ot 355.8 MONONEURITIS LEG NOS 01/18/2017 TYRA LEZAMA N Ot 724.00 SPINAL STENOSIS NOS 01/18/2017 TYRA LEZAMA N Ot V10.3 HX OF BREAST MALIGNANCY 01/18/2017 TYRA LEZAMA N Ot V58.69 OTH MED,LT,CURRENT USE 01/18/2017 TEJA BOBAN N Ot V67.1 RADIOTHERAPY FOLLOW-UP 01/18/2017 TYRA LEZAMA N Ot V67.2 CHEMOTHERAPY FOLLOW-UP 01/18/2017 TEJA BOBSARAH N Ot 174.9 MALIGN NEOPL BREAST NOS 01/18/2017 TYRA LEZAMA N Ot 793.89 OTH (ABN) FINDINGS ON RADIOLOGICAL EXAMI 01/18/2017 TYRA LEZAMA N Ot V76.11 SCRN MAMMO-HIGH RISK PT, MALIGNANT NEOPL 01/18/2017 LIZBETH PASTRANA AEROSPACE MEDICINE PHYSICIAN Ot 174.9 MALIGN NEOPL BREAST NOS 01/18/2017 LIZBETH PASTRANA AEROSPACE MEDICINE PHYSICIAN Ot 793.80 UNSPEC ABNORMAL MAMMOGRAM 01/18/2017 TYRA LEZAMA N Ot 250.00 DIAB JOSÉ WO COMPL, TYPE II OR UNSPEC TY 01/18/2017 TEJA BOBAN N Ot 355.8 MONONEURITIS LEG NOS 01/18/2017 TEJA BOBSARAH N Ot 724.00 SPINAL STENOSIS NOS 01/18/2017 TYRA LEZAMA N Ot V10.3 HX OF BREAST MALIGNANCY 01/18/2017 TYRA LEZAMA N Ot V58.69 OTH MED,LT,CURRENT USE 01/18/2017 TYRA LEZAMA N Ot V67.1 RADIOTHERAPY FOLLOW-UP 01/18/2017 TEJA BOBAN N Ot V67.2 CHEMOTHERAPY FOLLOW-UP 01/18/2017 TEJA BOBAN N Ot 174.9 MALIGN NEOPL BREAST NOS 01/18/2017 TEJA BOBAN N Ot 250.00 DIAB JOSÉ WO COMPL, TYPE II OR UNSPEC TY 01/18/2017 TEJA BOBAN N Ot 355.8 MONONEURITIS LEG NOS 01/18/2017 TEJA BOBAN N Ot 724.00 SPINAL STENOSIS NOS 01/18/2017 TEJAVIRGILIOAN N Ot V10.3 HX OF BREAST MALIGNANCY 01/18/2017 TEJAVIRGILIOAN N Ot V58.69 OTH MED,LT,CURRENT USE 01/18/2017 TEJA BOBAN N Ot V67.1 RADIOTHERAPY FOLLOW-UP 01/18/2017 TEJA BOBAN N Ot V67.2 CHEMOTHERAPY FOLLOW-UP 01/18/2017 TEJA BOBAN N Ot 174.9 MALIGN NEOPL BREAST NOS 01/18/2017 TEJA BOBAN N Ot 174.9 MALIGN NEOPL BREAST NOS 01/18/2017 TEJA BOBAN N Ot 250.00 DIAB JOSÉ WO COMPL, TYPE II OR UNSPEC TY 01/18/2017 TEJA BOBAN N Ot 355.8 MONONEURITIS LEG NOS 01/18/2017 TEJA BOBAN N Ot 724.00 SPINAL STENOSIS NOS 01/18/2017 TEJA BOBAN N Ot V10.3 HX OF BREAST MALIGNANCY 01/18/2017 TEJA BOBAN N Ot V58.69 OTH MED,LT,CURRENT USE 01/18/2017 TEJA BOBAN N Ot V67.1 RADIOTHERAPY FOLLOW-UP 01/18/2017 TEJA BOBAN N Ot V67.2 CHEMOTHERAPY FOLLOW-UP 01/18/2017 TEJA BOBAN N Ot 174.9 MALIGN NEOPL BREAST NOS 01/18/2017 TEJA BOBAN N Ot 174.9 MALIGN NEOPL BREAST NOS 01/18/2017 CHON SALMON FACC, ALI FACP CCDS Ot 174.9 MALIGN NEOPL BREAST NOS 01/18/2017 CHON SALMON FACC, ALI FACP CCDS Ot 250.00 DIAB JOSÉ WO COMPL, TYPE II OR UNSPEC TY 01/18/2017 CHON SALMON FACC, ALI FACP CCDS Ot 272.4 HYPERLIPIDEMIA NEC/NOS 01/18/2017 CHON SALMON FACC, ALI FACP CCDS Ot 278.00 OBESITY, NOS 01/18/2017 CHON SALMON FACC, ALI FACP CCDS Ot 401.9 HYPERTENSION NOS 01/18/2017 CHON SALMON FACC, ALI FACP CCDS Ot V85.30 BODY MASS INDEX 30.0-30.9, ADULT 01/18/2017 ROSEANNA ARIAS MD Ot V72.84 EXAM PRE-OPERATIVE NOS 01/18/2017 ROSEANNA ARIAS MD Ot 174.9 MALIGN NEOPL BREAST NOS 01/18/2017 ROSEANNA ARIAS MD Ot V72.63 PRE-PROCEDURAL LABORATORY EXAMINATION 01/18/2017 ROSEANNA ARIAS MD Ot V74.8 SCREEN-BACTERIAL DIS NEC 01/18/2017 ROSEANNA ARIAS MD Ot 786.6 CHEST SWELLING/MASS/LUMP 01/18/2017 ROSEANNA ARIAS MD Ot V45.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 01/18/2017 TEJATYRA Ot 174.9 MALIGN NEOPL BREAST NOS 01/18/2017 TEJA TYRA Jackman Ot V15.3 HX OF IRRADIATION 01/18/2017 TEJATYRA Ot V45.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 01/18/2017 TEJA VIRGILIOSARAH Jackman Ot V58.69 OTH MED,LT,CURRENT USE 01/18/2017 TEJATYRA Ot V87.41 PERSONAL HISTORY OF ANTINEOPLASTIC CHEMO 01/18/2017 ROSEANNA ARIAS MD Ot V10.3 HX OF BREAST MALIGNANCY 01/18/2017 ROSEANNA ARIAS MD Ot V72.84 EXAM PRE-OPERATIVE NOS 01/18/2017 LIZBETH PASTRANA AEROSPACE MEDICINE PHYSICIAN Ot C50.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 01/18/2017 LIZBETH PASTRANA AEROSPACE MEDICINE PHYSICIAN Ot E11.9 TYPE 2 DIABETES MELLITUS WITHOUT COMPLIC 01/18/2017 LIZBETH PASTRANA AEROSPACE MEDICINE PHYSICIAN Ot E78.0 PURE HYPERCHOLESTEROLEMIA 01/18/2017 LIZBETH PASTRANA AEROSPACE MEDICINE PHYSICIAN Ot G62.9 POLYNEUROPATHY, UNSPECIFIED 01/18/2017 LIZBETH PASTRANA AEROSPACE MEDICINE PHYSICIAN Ot I10 ESSENTIAL (PRIMARY) HYPERTENSION 01/18/2017 LIZBETH PASTRANA AEROSPACE MEDICINE PHYSICIAN Ot 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-] 01/18/2017 LIZBETH PASTRANA AEROSPACE MEDICINE PHYSICIAN Ot Z79.899 OTHER CUSTODIAL (CURRENT) DRUG THERAPY 01/18/2017 LIBZETH PASTRANA AEROSPACE MEDICINE PHYSICIAN Ot Z90.11 ACQUIRED ABSENCE OF RIGHT BREAST AND NIP 01/18/2017 LIZBETH PASTRANA AEROSPACE MEDICINE PHYSICIAN Ot Z92.21 PERSONAL HISTORY OF ANTINEOPLASTIC CHEMO 01/18/2017 LIZBETH PASTRANA AEROSPACE MEDICINE PHYSICIAN Ot Z92.3 PERSONAL HISTORY OF IRRADIATION 01/18/2017 LIZBETH PASTRANA AEROSPACE MEDICINE PHYSICIAN Ot 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 01/18/2017 LIZBETH PASTRANA AEROSPACE MEDICINE PHYSICIAN Ot 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 N 01/18/2017 LIZBETH PASTRANA AEROSPACE MEDICINE PHYSICIAN Ot 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-] 01/18/2017 PASTRANALIZBETH Aguilera AEROSPACE MEDICINE PHYSICIAN Ot Z79.899 OTHER CUSTODIAL (CURRENT) DRUG THERAPY 01/18/2017 LIZBETH PASTRANA AEROSPACE MEDICINE PHYSICIAN Ot Z90.11 ACQUIRED ABSENCE OF RIGHT BREAST AND NIP 01/18/2017 PASTRANALIZBETH Aguilera AEROSPACE MEDICINE PHYSICIAN Ot 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 01/18/2017 LIZBETH PASTRANA AEROSPACE MEDICINE PHYSICIAN Ot 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 N 01/18/2017 PASTRANALIZBETH Aguilera AEROSPACE MEDICINE PHYSICIAN Ot E11.9 TYPE 2 DIABETES MELLITUS WITHOUT COMPLIC 01/18/2017 PASTRANALIZBETH Aguilera AEROSPACE MEDICINE PHYSICIAN Ot E78.0 PURE HYPERCHOLESTEROLEMIA 01/18/2017 PASTRANALIZBETH Aguilera AEROSPACE MEDICINE PHYSICIAN Ot I10 ESSENTIAL (PRIMARY) HYPERTENSION 01/18/2017 PASTRANALIZBETH Aguilera AEROSPACE MEDICINE PHYSICIAN Ot 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-] 01/18/2017 PASTRANALIZBETH Aguilera AEROSPACE MEDICINE PHYSICIAN Ot Z79.899 OTHER CUSTODIAL (CURRENT) DRUG THERAPY 01/18/2017 PASTRANALIZBETH Aguilera AEROSPACE MEDICINE PHYSICIAN Ot Z90.11 ACQUIRED ABSENCE OF RIGHT BREAST AND NIP 01/18/2017 PASTRANALIZBETH Aguilera AEROSPACE MEDICINE PHYSICIAN Ot 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 01/18/2017 LIZBETH PASTRANA AEROSPACE MEDICINE PHYSICIAN Ot C50.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 01/18/2017 PASTRANALIZBETH Aguilera AEROSPACE MEDICINE PHYSICIAN Ot 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 N 01/18/2017 PASTRANALIZBETH Aguilera AEROSPACE MEDICINE PHYSICIAN Ot E11.9 TYPE 2 DIABETES MELLITUS WITHOUT COMPLIC 01/18/2017 PASTRANALIZBETH Aguilera AEROSPACE MEDICINE PHYSICIAN Ot E78.0 PURE HYPERCHOLESTEROLEMIA 01/18/2017 VICTORIANOLIZBETH AEROSPACE MEDICINE PHYSICIAN Ot G62.9 POLYNEUROPATHY, UNSPECIFIED 01/18/2017 VICTORIANO LIZBETH Aguilera AEROSPACE MEDICINE PHYSICIAN Ot I10 ESSENTIAL (PRIMARY) HYPERTENSION 01/18/2017 LIZBETH PASTRANA AEROSPACE MEDICINE PHYSICIAN Ot 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-] 01/18/2017 LIZBETH PASTRANA AEROSPACE MEDICINE PHYSICIAN Ot Z79.899 OTHER CUSTODIAL (CURRENT) DRUG THERAPY 01/18/2017 LIZBETH PASTRANA AEROSPACE MEDICINE PHYSICIAN Ot Z90.11 ACQUIRED ABSENCE OF RIGHT BREAST AND NIP 01/18/2017 LIZBETH PASTRANA AEROSPACE MEDICINE PHYSICIAN Ot Z92.21 PERSONAL HISTORY OF ANTINEOPLASTIC CHEMO 01/18/2017 LIZBETH PASTRANA AEROSPACE MEDICINE PHYSICIAN Ot Z92.3 PERSONAL HISTORY OF IRRADIATION 01/18/2017 TYRA LEZAMA N Ot 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 01/18/2017 TYRA LEZAMA N Ot 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 N 01/18/2017 TYRA LEZAMA N Ot E11.9 TYPE 2 DIABETES MELLITUS WITHOUT COMPLIC 01/18/2017 TYRA LEZAMA N Ot E78.0 PURE HYPERCHOLESTEROLEMIA 01/18/2017 TYRA LEZAMA N Ot I10 ESSENTIAL (PRIMARY) HYPERTENSION 01/18/2017 TYRA LEZAMA N Ot L20.9 ATOPIC DERMATITIS, UNSPECIFIED 01/18/2017 TYRA LEZAMA N Ot 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-] 01/18/2017 TYRA LEZAMA N Ot 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 01/18/2017 TYRA LEZAMA N Ot Z90.11 ACQUIRED ABSENCE OF RIGHT BREAST AND NIP 01/18/2017 TYRA LEZAMA N Ot Z92.21 PERSONAL HISTORY OF ANTINEOPLASTIC CHEMO 01/18/2017 TYRA LEZAMA N Ot Z92.3 PERSONAL HISTORY OF IRRADIATION 01/18/2017 TYRA LEZAMA N Ot C50.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 01/18/2017 TYRA LEZAMA N Ot E11.9 TYPE 2 DIABETES MELLITUS WITHOUT COMPLIC 01/18/2017 TEJATYRA N Ot E78.0 PURE HYPERCHOLESTEROLEMIA 01/18/2017 TYRA LEZAMA N Ot G62.9 POLYNEUROPATHY, UNSPECIFIED 01/18/2017 TEJATYRA AZEVEDO N Ot I10 ESSENTIAL (PRIMARY) HYPERTENSION 01/18/2017 TYRA LEZAMA N Ot 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-] 01/18/2017 TYRA LEZAMA N Ot 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 01/18/2017 TYRA LEZAMA N Ot Z90.11 ACQUIRED ABSENCE OF RIGHT BREAST AND NIP 01/18/2017 TYRA LEZAMA N Ot Z92.21 PERSONAL HISTORY OF ANTINEOPLASTIC CHEMO 01/18/2017 TYRA LEZAMA N Ot Z92.3 PERSONAL HISTORY OF IRRADIATION 01/18/2017 TYRA LEZAMA N Ot 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 01/18/2017 TYRA LEZAMA N Ot 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 N 01/18/2017 TYRA LEZAMA N Ot E11.9 TYPE 2 DIABETES MELLITUS WITHOUT COMPLIC 01/18/2017 TYRA LEZAMA N Ot E78.0 PURE HYPERCHOLESTEROLEMIA 01/18/2017 TYRA LEZAMA N Ot I10 ESSENTIAL (PRIMARY) HYPERTENSION 01/18/2017 TYRA LEZAMA Ot L20.9 ATOPIC DERMATITIS, UNSPECIFIED 01/18/2017 TYRA LEZAMA Ot 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-] 01/18/2017 TYRA LEZAMA N Ot 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 01/18/2017 TYRA LEZAMA N Ot Z90.11 ACQUIRED ABSENCE OF RIGHT BREAST AND NIP 01/18/2017 TYRA LEZAMA Ot Z92.21 PERSONAL HISTORY OF ANTINEOPLASTIC CHEMO 01/18/2017 TYRA LEZAMA N Ot Z92.3 PERSONAL HISTORY OF IRRADIATION 01/18/2017 CHON SALMON FACC, ALI FACP CCDS Ot 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 01/18/2017 CHON SALMON FACC, ALI FACP CCDS Ot E11.9 TYPE 2 DIABETES MELLITUS WITHOUT COMPLIC 01/18/2017 CHON SALMON FACC, ALI FACP CCDS Ot E78.0 PURE HYPERCHOLESTEROLEMIA 01/18/2017 CHON SALMON FACC, ALI FACP CCDS Ot I10 ESSENTIAL (PRIMARY) HYPERTENSION 01/18/2017 TYRA LEZAMA N Ot 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 01/18/2017 TYRA LEZAMA N Ot 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 N 01/18/2017 TYRA LEZAMA N Ot E78.0 PURE HYPERCHOLESTEROLEMIA 01/18/2017 TYRA LEZAMA N Ot I10 ESSENTIAL (PRIMARY) HYPERTENSION 01/18/2017 TYRA LEZAMA N Ot L20.9 ATOPIC DERMATITIS, UNSPECIFIED 01/18/2017 TYRA LEZAMA N Ot 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-] 01/18/2017 TYRA LEZAMA N Ot Z79.899 OTHER CUSTODIAL (CURRENT) DRUG THERAPY 01/18/2017 TYRA LEZAMA N Ot Z90.11 ACQUIRED ABSENCE OF RIGHT BREAST AND NIP 01/18/2017 TYRA LEZAMA N Ot Z92.21 PERSONAL HISTORY OF ANTINEOPLASTIC CHEMO 01/18/2017 TYRA LEZAMA N Ot Z92.3 PERSONAL HISTORY OF IRRADIATION 01/18/2017 TYRA LEZAMA N Ot 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 01/18/2017 TYRA LEZAMA N Ot 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 N 01/18/2017 TYRA LEZAMA N Ot E78.00 PURE HYPERCHOLESTEROLEMIA, UNSPECIFIED 01/18/2017 TYRA LEZAMA N Ot G62.9 POLYNEUROPATHY, UNSPECIFIED 01/18/2017 TYRA LEZAMA N Ot I10 ESSENTIAL (PRIMARY) HYPERTENSION 01/18/2017 TYRA LEZAMA N Ot L20.9 ATOPIC DERMATITIS, UNSPECIFIED 01/18/2017 TYRA LEZAMA N Ot 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-] 01/18/2017 TYRA LEZAMA N Ot 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 01/18/2017 TYRA LEZAMA N Ot Z90.11 ACQUIRED ABSENCE OF RIGHT BREAST AND NIP 01/18/2017 TYRA LEZAMA Ot Z92.21 PERSONAL HISTORY OF ANTINEOPLASTIC CHEMO 01/18/2017 TYRA LEZAMA N Ot Z92.3 PERSONAL HISTORY OF IRRADIATION 01/18/2017 TYRA LEZAMA N Ot Z12.31 ENCNTR SCREEN MAMMOGRAM FOR MALIGNANT NE 01/18/2017 TYRA LEZAMA N Ot Z85.3 PERSONAL HISTORY OF MALIGNANT NEOPLASM O 01/18/2017 TYRA LEZAMA N Ot 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 01/18/2017 TYRA LEZAMA N Ot 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 N 01/18/2017 TYRA LEZAMA N Ot E78.00 PURE HYPERCHOLESTEROLEMIA, UNSPECIFIED 01/18/2017 TYRA LEZAMA Ot G62.9 POLYNEUROPATHY, UNSPECIFIED 01/18/2017 TYRA LEZAMA N Ot I10 ESSENTIAL (PRIMARY) HYPERTENSION 01/18/2017 TYRA LEZAMA Ot L20.9 ATOPIC DERMATITIS, UNSPECIFIED 01/18/2017 TYRA LEZAMA Ot 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-] 01/18/2017 TYRA LEZAMA Ot 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 01/18/2017 TYRA LEZAMA Ot Z90.11 ACQUIRED ABSENCE OF RIGHT BREAST AND NIP 01/18/2017 TYRA LEZAMA Ot Z92.21 PERSONAL HISTORY OF ANTINEOPLASTIC CHEMO 01/18/2017 TYRA LEZAMA N Ot Z92.3 PERSONAL HISTORY OF IRRADIATION 01/18/2017 TYRA LEZAMA Ot 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 01/18/2017 TYRA LEZAMA Ot 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 N 01/18/2017 TYRA LEZAMA Ot E78.00 PURE HYPERCHOLESTEROLEMIA, UNSPECIFIED 01/18/2017 TYRA LEZAMA Ot G62.9 POLYNEUROPATHY, UNSPECIFIED 01/18/2017 TYRA LEZAMA Ot I10 ESSENTIAL (PRIMARY) HYPERTENSION 01/18/2017 TYRA LEZAMA Ot 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-] 01/18/2017 TYRA LEZAMA Ot 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 01/18/2017 TYRA LEZAMA Ot Z90.11 ACQUIRED ABSENCE OF RIGHT BREAST AND NIP 01/18/2017 TYRA LEZAMA Ot Z92.21 PERSONAL HISTORY OF ANTINEOPLASTIC CHEMO 01/18/2017 TYRA LEZAMA Ot Z92.3 PERSONAL HISTORY OF IRRADIATION 01/23/2017 Ot 355.8 MONONEURITIS LEG NOS 01/23/2017 Ot 724.00 SPINAL STENOSIS NOS 01/23/2017 Ot V10.3 HX OF BREAST MALIGNANCY 01/23/2017 Ot V58.69 OTH MED,LT,CURRENT USE 01/23/2017 Ot V67.1 RADIOTHERAPY FOLLOW-UP 01/23/2017 Ot V67.2 CHEMOTHERAPY FOLLOW-UP 01/23/2017 Ot 724.00 SPINAL STENOSIS NOS 01/23/2017 Ot V10.3 HX OF BREAST MALIGNANCY 01/23/2017 Ot V58.69 OTH MED,LT,CURRENT USE 01/23/2017 Ot V67.1 RADIOTHERAPY FOLLOW-UP 01/23/2017 Ot V67.2 CHEMOTHERAPY FOLLOW-UP 01/23/2017 Ot 174.9 MALIGN NEOPL BREAST NOS 01/23/2017 TYRA LEZAMA N Ot 250.00 DIAB JOSÉ WO COMPL, TYPE II OR UNSPEC TY 01/23/2017 TEJA BOBAN N Ot 355.8 MONONEURITIS LEG NOS 01/23/2017 TEJA BOBAN N Ot 724.00 SPINAL STENOSIS NOS 01/23/2017 TEJATYRA N Ot V10.3 HX OF BREAST MALIGNANCY 01/23/2017 TEJATYRA N Ot V58.69 OTH MED,LT,CURRENT USE 01/23/2017 TEJA BOBAN N Ot V67.1 RADIOTHERAPY FOLLOW-UP 01/23/2017 TEJA BOBSARAH N Ot V67.2 CHEMOTHERAPY FOLLOW-UP 01/23/2017 TEJA BOBAN N Ot 174.9 MALIGN NEOPL BREAST NOS 01/23/2017 TYRA LEZAMA N Ot 793.89 OTH (ABN) FINDINGS ON RADIOLOGICAL EXAMI 01/23/2017 TEJA BOBAN N Ot V76.11 SCRN MAMMO-HIGH RISK PT, MALIGNANT NEOPL 01/23/2017 LIZBETH PASTRANA AEROSPACE MEDICINE PHYSICIAN Ot 174.9 MALIGN NEOPL BREAST NOS 01/23/2017 LIZBETH PASTRANA AEROSPACE MEDICINE PHYSICIAN Ot 793.80 UNSPEC ABNORMAL MAMMOGRAM 01/23/2017 TEJA VIRGILIOSARAH N Ot 250.00 DIAB JOSÉ WO COMPL, TYPE II OR UNSPEC TY 01/23/2017 TEJA BOBAN N Ot 355.8 MONONEURITIS LEG NOS 01/23/2017 TEJA BOBAN N Ot 724.00 SPINAL STENOSIS NOS 01/23/2017 TEJA BOBAN N Ot V10.3 HX OF BREAST MALIGNANCY 01/23/2017 YTRA LEZAMA N Ot V58.69 OTH MED,LT,CURRENT USE 01/23/2017 TEJA BOBAN N Ot V67.1 RADIOTHERAPY FOLLOW-UP 01/23/2017 TEJA BOBAN N Ot V67.2 CHEMOTHERAPY FOLLOW-UP 01/23/2017 TEJA BOBAN N Ot 174.9 MALIGN NEOPL BREAST NOS 01/23/2017 TEJA, BOBAN N Ot 250.00 DIAB JOSÉ WO COMPL, TYPE II OR UNSPEC TY 01/23/2017 TEJA, BOBAN N Ot 355.8 MONONEURITIS LEG NOS 01/23/2017 TEJA, BOBAN N Ot 724.00 SPINAL STENOSIS NOS 01/23/2017 TEJA, BOBAN N Ot V10.3 HX OF BREAST MALIGNANCY 01/23/2017 TEJA, BOBAN N Ot V58.69 OTH MED,LT,CURRENT USE 01/23/2017 TEJA, BOBAN N Ot V67.1 RADIOTHERAPY FOLLOW-UP 01/23/2017 TEJA, BOBAN N Ot V67.2 CHEMOTHERAPY FOLLOW-UP 01/23/2017 TEJA, BOBAN N Ot 174.9 MALIGN NEOPL BREAST NOS 01/23/2017 TEJA, BOBAN N Ot 174.9 MALIGN NEOPL BREAST NOS 01/23/2017 TEJA, BOBAN N Ot 250.00 DIAB JOSÉ WO COMPL, TYPE II OR UNSPEC TY 01/23/2017 TEJA, BOBAN N Ot 355.8 MONONEURITIS LEG NOS 01/23/2017 TEJA, BOBAN N Ot 724.00 SPINAL STENOSIS NOS 01/23/2017 TEJA, BOBAN N Ot V10.3 HX OF BREAST MALIGNANCY 01/23/2017 TEJA, BOBAN N Ot V58.69 OTH MED,LT,CURRENT USE 01/23/2017 TEJA, BOBAN N Ot V67.1 RADIOTHERAPY FOLLOW-UP 01/23/2017 TEJA, BOBAN N Ot V67.2 CHEMOTHERAPY FOLLOW-UP 01/23/2017 TEJA, BOBAN N Ot 174.9 MALIGN NEOPL BREAST NOS 01/23/2017 TEJA, BOBAN N Ot 174.9 MALIGN NEOPL BREAST NOS 01/23/2017 CHON SALMON FACC, ALI FACP CCDS Ot 174.9 MALIGN NEOPL BREAST NOS 01/23/2017 CHON SALMON FACMikey, ALI FACP CCDS Ot 250.00 DIAB JOSÉ WO COMPL, TYPE II OR UNSPEC TY 01/23/2017 CHON SALMON FACC, ALI FACP CCDS Ot 272.4 HYPERLIPIDEMIA NEC/NOS 01/23/2017 CHON SALMON FACC, ALI FACP CCDS Ot 278.00 OBESITY, NOS 01/23/2017 CHON SALMON FACMikey, ALI FACP CCDS Ot 401.9 HYPERTENSION NOS 01/23/2017 CHON SALMON FAC, ALI FACP CCDS Ot V85.30 BODY MASS INDEX 30.0-30.9, ADULT 01/23/2017 ROSEANNA ARIAS MD Ot V72.84 EXAM PRE-OPERATIVE NOS 01/23/2017 ROSEANNA ARIAS MD Ot 174.9 MALIGN NEOPL BREAST NOS 01/23/2017 ROSEANNA ARIAS MD Ot V72.63 PRE-PROCEDURAL LABORATORY EXAMINATION 01/23/2017 ROSEANNA ARIAS MD Ot V74.8 SCREEN-BACTERIAL DIS NEC 01/23/2017 ROSEANNA ARIAS MD Ot 786.6 CHEST SWELLING/MASS/LUMP 01/23/2017 ROSEANNA ARIAS MD Ot V45.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 01/23/2017 TEJATYRA AZEVEDO Ot 174.9 MALIGN NEOPL BREAST NOS 01/23/2017 TYRA LEZAMA Ot V15.3 HX OF IRRADIATION 01/23/2017 TYRA LEZAMA Ot V45.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 01/23/2017 TEJATYRA N Ot V58.69 OTH MED,LT,CURRENT USE 01/23/2017 TEJATYRA AZEVEDO N Ot V87.41 PERSONAL HISTORY OF ANTINEOPLASTIC CHEMO 01/23/2017 ROSEANNA ARIAS MD Ot V10.3 HX OF BREAST MALIGNANCY 01/23/2017 ROSEANNA ARIAS MD Ot V72.84 EXAM PRE-OPERATIVE NOS 01/23/2017 LIZBETH PASTRANA AEROSPACE MEDICINE PHYSICIAN Ot C50.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 01/23/2017 LIZBETH PASTRANA AEROSPACE MEDICINE PHYSICIAN Ot E11.9 TYPE 2 DIABETES MELLITUS WITHOUT COMPLIC 01/23/2017 LIZBETH PASTRANA AEROSPACE MEDICINE PHYSICIAN Ot E78.0 PURE HYPERCHOLESTEROLEMIA 01/23/2017 LIZBETH PASTRANA AEROSPACE MEDICINE PHYSICIAN Ot G62.9 POLYNEUROPATHY, UNSPECIFIED 01/23/2017 LIZBETH PASTRANA AEROSPACE MEDICINE PHYSICIAN Ot I10 ESSENTIAL (PRIMARY) HYPERTENSION 01/23/2017 LIZBETH PASTRANA AEROSPACE MEDICINE PHYSICIAN Ot 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-] 01/23/2017 LIZBETH PASTRANA AEROSPACE MEDICINE PHYSICIAN Ot Z79.899 OTHER CUSTODIAL (CURRENT) DRUG THERAPY 01/23/2017 LIZBETH PASTRANA AEROSPACE MEDICINE PHYSICIAN Ot Z90.11 ACQUIRED ABSENCE OF RIGHT BREAST AND NIP 01/23/2017 LIZBETH PASTRANA AEROSPACE MEDICINE PHYSICIAN Ot Z92.21 PERSONAL HISTORY OF ANTINEOPLASTIC CHEMO 01/23/2017 LIZBETH PASTRANA AEROSPACE MEDICINE PHYSICIAN Ot Z92.3 PERSONAL HISTORY OF IRRADIATION 01/23/2017 LIZBETH PASTRANA AEROSPACE MEDICINE PHYSICIAN Ot 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 01/23/2017 PASTRANALIZBETH Aguilera AEROSPACE MEDICINE PHYSICIAN Ot 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 N 01/23/2017 PASTRANALIZBETH Aguilera AEROSPACE MEDICINE PHYSICIAN Ot 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-] 01/23/2017 PASTRANALIZBETH Aguilera AEROSPACE MEDICINE PHYSICIAN Ot Z79.899 OTHER CUSTODIAL (CURRENT) DRUG THERAPY 01/23/2017 PASTRANALIZBETH AguileraP Ot Z90.11 ACQUIRED ABSENCE OF RIGHT BREAST AND NIP 01/23/2017 PASTRANA LIZBETH Aguilera AEROSPACE MEDICINE PHYSICIAN Ot 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 01/23/2017 VICTORIANO LIZBETH Aguilera AEROSPACE MEDICINE PHYSICIAN Ot 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 N 01/23/2017 PASTRNAALIZBETH Aguilera AEROSPACE MEDICINE PHYSICIAN Ot E11.9 TYPE 2 DIABETES MELLITUS WITHOUT COMPLIC 01/23/2017 PASTRANALIZBETH Aguilera AEROSPACE MEDICINE PHYSICIAN Ot E78.0 PURE HYPERCHOLESTEROLEMIA 01/23/2017 PASTRANALIZBETH Aguilera AEROSPACE MEDICINE PHYSICIAN Ot I10 ESSENTIAL (PRIMARY) HYPERTENSION 01/23/2017 PASTRANALIZBETH Aguilera AEROSPACE MEDICINE PHYSICIAN Ot 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-] 01/23/2017 PASTRANALIZBETH Aguilera AEROSPACE MEDICINE PHYSICIAN Ot Z79.899 OTHER CUSTODIAL (CURRENT) DRUG THERAPY 01/23/2017 PASTRANA LIZBETH CORTEZP Ot Z90.11 ACQUIRED ABSENCE OF RIGHT BREAST AND NIP 01/23/2017 PASTRANA LIZBETH Aguilera AEROSPACE MEDICINE PHYSICIAN Ot 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 01/23/2017 VICTORIANO LIZBETH Aguilera AEROSPACE MEDICINE PHYSICIAN Ot C50.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 01/23/2017 VICTORIANO LIZBETH Aguilera AEROSPACE MEDICINE PHYSICIAN Ot 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 N 01/23/2017 VICTORIANO LIZBETH Aguilera AEROSPACE MEDICINE PHYSICIAN Ot E11.9 TYPE 2 DIABETES MELLITUS WITHOUT COMPLIC 01/23/2017 VICTORIANO LIZBETH Aguilera AEROSPACE MEDICINE PHYSICIAN Ot E78.0 PURE HYPERCHOLESTEROLEMIA 01/23/2017 LIZBETH PASTRANAP Ot G62.9 POLYNEUROPATHY, UNSPECIFIED 01/23/2017 LIZBETH PASTRANA AEROSPACE MEDICINE PHYSICIAN Ot I10 ESSENTIAL (PRIMARY) HYPERTENSION 01/23/2017 LIZBETH PASTRANA AEROSPACE MEDICINE PHYSICIAN Ot 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-] 01/23/2017 LIZBETH PASTRANA AEROSPACE MEDICINE PHYSICIAN Ot 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 01/23/2017 LIZBETH PASTRANAP Ot Z90.11 ACQUIRED ABSENCE OF RIGHT BREAST AND NIP 01/23/2017 LIZBETH PASTRANAP Ot Z92.21 PERSONAL HISTORY OF ANTINEOPLASTIC CHEMO 01/23/2017 LIZBETH PASTRANAP Ot Z92.3 PERSONAL HISTORY OF IRRADIATION 01/23/2017 TYRA LEZAMA Gasper Ot 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 01/23/2017 TEJATYRA AZEVEDO N Ot 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 N 01/23/2017 TEJA, TYRA N Ot E11.9 TYPE 2 DIABETES MELLITUS WITHOUT COMPLIC 01/23/2017 TYRA LEZAMA N Ot E78.0 PURE HYPERCHOLESTEROLEMIA 01/23/2017 TYRA LEZAMA N Ot I10 ESSENTIAL (PRIMARY) HYPERTENSION 01/23/2017 TYRA LEZAMA N Ot L20.9 ATOPIC DERMATITIS, UNSPECIFIED 01/23/2017 TYRA LEZAMA N Ot 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-] 01/23/2017 TYRA LEZAMA N Ot 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 01/23/2017 TYRA LEZAMA N Ot Z90.11 ACQUIRED ABSENCE OF RIGHT BREAST AND NIP 01/23/2017 TYRA LEZAMA N Ot Z92.21 PERSONAL HISTORY OF ANTINEOPLASTIC CHEMO 01/23/2017 TYRA LEZAMA N Ot Z92.3 PERSONAL HISTORY OF IRRADIATION 01/23/2017 TEJA TYRA N Ot C50.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 01/23/2017 TYRA LEZAMA N Ot E11.9 TYPE 2 DIABETES MELLITUS WITHOUT COMPLIC 01/23/2017 TEJATYRA N Ot E78.0 PURE HYPERCHOLESTEROLEMIA 01/23/2017 TEJA, VIRGILIOSARAH N Ot G62.9 POLYNEUROPATHY, UNSPECIFIED 01/23/2017 TEJATYRA AZEVEDO N Ot I10 ESSENTIAL (PRIMARY) HYPERTENSION 01/23/2017 TYRA LEZAMA N Ot 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-] 01/23/2017 TYRA LEZAMA N Ot 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 01/23/2017 TYRA LEZAMA N Ot Z90.11 ACQUIRED ABSENCE OF RIGHT BREAST AND NIP 01/23/2017 TYRA LEZAMA Ot Z92.21 PERSONAL HISTORY OF ANTINEOPLASTIC CHEMO 01/23/2017 TYRA LEZAMA N Ot Z92.3 PERSONAL HISTORY OF IRRADIATION 01/23/2017 TYRA LEZAMA N Ot 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 01/23/2017 TYRA LEZAMA N Ot 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 N 01/23/2017 TYRA LEZAMA N Ot E11.9 TYPE 2 DIABETES MELLITUS WITHOUT COMPLIC 01/23/2017 TYRA LEZAMA N Ot E78.0 PURE HYPERCHOLESTEROLEMIA 01/23/2017 TYRA LEZAMA N Ot I10 ESSENTIAL (PRIMARY) HYPERTENSION 01/23/2017 TYRA LEZAMA N Ot L20.9 ATOPIC DERMATITIS, UNSPECIFIED 01/23/2017 TYRA LEZAMA N Ot 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-] 01/23/2017 TYRA LEZAMA N Ot Z79.899 OTHER CUSTODIAL (CURRENT) DRUG THERAPY 01/23/2017 TYRA LEZAMA N Ot Z90.11 ACQUIRED ABSENCE OF RIGHT BREAST AND NIP 01/23/2017 TYRA LEZAMA N Ot Z92.21 PERSONAL HISTORY OF ANTINEOPLASTIC CHEMO 01/23/2017 TYRA LEZAMA N Ot Z92.3 PERSONAL HISTORY OF IRRADIATION 01/23/2017 CHON SALMON FACC, ALI FACP CCDS Ot 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 01/23/2017 CHON SALMON FACC, ALI FACP CCDS Ot E11.9 TYPE 2 DIABETES MELLITUS WITHOUT COMPLIC 01/23/2017 CHON SALMON FACC, ALI FACP CCDS Ot E78.0 PURE HYPERCHOLESTEROLEMIA 01/23/2017 CHON SALMON FACC, ALI FACP CCDS Ot I10 ESSENTIAL (PRIMARY) HYPERTENSION 01/23/2017 TYRA LEZAMA N Ot 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 01/23/2017 TYRA LEZAMA N Ot 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 N 01/23/2017 TYRA LEZAMA N Ot E78.0 PURE HYPERCHOLESTEROLEMIA 01/23/2017 TYRA LEZAMA N Ot I10 ESSENTIAL (PRIMARY) HYPERTENSION 01/23/2017 TYRA LEZAMA N Ot L20.9 ATOPIC DERMATITIS, UNSPECIFIED 01/23/2017 TYRA LEZAMA N Ot 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-] 01/23/2017 TYRA LEZAMA N Ot 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 01/23/2017 TYRA LEZAMA N Ot Z90.11 ACQUIRED ABSENCE OF RIGHT BREAST AND NIP 01/23/2017 TYRA LEZAMA N Ot Z92.21 PERSONAL HISTORY OF ANTINEOPLASTIC CHEMO 01/23/2017 TYRA LEZAMA N Ot Z92.3 PERSONAL HISTORY OF IRRADIATION 01/23/2017 TYRA LEZAMA N Ot 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 01/23/2017 TYRA LEZAMA N Ot 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 N 01/23/2017 TYRA LEZAMA N Ot E78.00 PURE HYPERCHOLESTEROLEMIA, UNSPECIFIED 01/23/2017 TYRA LEZAMA N Ot G62.9 POLYNEUROPATHY, UNSPECIFIED 01/23/2017 TYRA LEZAMA N Ot I10 ESSENTIAL (PRIMARY) HYPERTENSION 01/23/2017 TYRA LEZAMA N Ot L20.9 ATOPIC DERMATITIS, UNSPECIFIED 01/23/2017 TYRA LEZAMA N Ot 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-] 01/23/2017 TYRA LEZAMA N Ot Z79.899 OTHER CUSTODIAL (CURRENT) DRUG THERAPY 01/23/2017 TYRA LEZAMA N Ot Z90.11 ACQUIRED ABSENCE OF RIGHT BREAST AND NIP 01/23/2017 TYRA LEZAMA N Ot Z92.21 PERSONAL HISTORY OF ANTINEOPLASTIC CHEMO 01/23/2017 TYRA LEZAMA N Ot Z92.3 PERSONAL HISTORY OF IRRADIATION 01/23/2017 TYRA LEZAMA N Ot Z12.31 ENCNTR SCREEN MAMMOGRAM FOR MALIGNANT NE 01/23/2017 TYRA LEZAMA N Ot Z85.3 PERSONAL HISTORY OF MALIGNANT NEOPLASM O 01/23/2017 TYRA LEZAMA N Ot 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 01/23/2017 TYRA LEZAMA N Ot 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 N 01/23/2017 TYRA LEZAMA N Ot E78.00 PURE HYPERCHOLESTEROLEMIA, UNSPECIFIED 01/23/2017 TYRA LEZAMA Ot G62.9 POLYNEUROPATHY, UNSPECIFIED 01/23/2017 TYRA LEZAMA N Ot I10 ESSENTIAL (PRIMARY) HYPERTENSION 01/23/2017 TYRA LEZAMA Ot L20.9 ATOPIC DERMATITIS, UNSPECIFIED 01/23/2017 TYRA LEZAMA Ot 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-] 01/23/2017 TYRA LEZAMA N Ot 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 01/23/2017 TYRA LEZAMA N Ot Z90.11 ACQUIRED ABSENCE OF RIGHT BREAST AND NIP 01/23/2017 TYRA LEZAMA N Ot Z92.21 PERSONAL HISTORY OF ANTINEOPLASTIC CHEMO 01/23/2017 TYRA LEZAMA Ot Z92.3 PERSONAL HISTORY OF IRRADIATION 01/23/2017 TYRA LEZAMA Ot 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 01/23/2017 TYRA LEZAMA N Ot 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 N 01/23/2017 TYRA LEZAMA N Ot E78.00 PURE HYPERCHOLESTEROLEMIA, UNSPECIFIED 01/23/2017 TYRA LEZAMA N Ot G62.9 POLYNEUROPATHY, UNSPECIFIED 01/23/2017 TYRA LEZAMA N Ot I10 ESSENTIAL (PRIMARY) HYPERTENSION 01/23/2017 TYRA LEZAMA Ot 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-] 01/23/2017 TYRA LEZAMA Ot 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 01/23/2017 TYRA LEZAMA N Ot Z90.11 ACQUIRED ABSENCE OF RIGHT BREAST AND NIP 01/23/2017 TYRA LEZAMA N Ot Z92.21 PERSONAL HISTORY OF ANTINEOPLASTIC CHEMO 01/23/2017 TYRA LEZAMA N Ot Z92.3 PERSONAL HISTORY OF IRRADIATION 01/24/2017 Ot 355.8 MONONEURITIS LEG NOS 01/24/2017 Ot 724.00 SPINAL STENOSIS NOS 01/24/2017 Ot V10.3 HX OF BREAST MALIGNANCY 01/24/2017 Ot V58.69 OTH MED,LT,CURRENT USE 01/24/2017 Ot V67.1 RADIOTHERAPY FOLLOW-UP 01/24/2017 Ot V67.2 CHEMOTHERAPY FOLLOW-UP 01/24/2017 Ot 724.00 SPINAL STENOSIS NOS 01/24/2017 Ot V10.3 HX OF BREAST MALIGNANCY 01/24/2017 Ot V58.69 OTH MED,LT,CURRENT USE 01/24/2017 Ot V67.1 RADIOTHERAPY FOLLOW-UP 01/24/2017 Ot V67.2 CHEMOTHERAPY FOLLOW-UP 01/24/2017 Ot 174.9 MALIGN NEOPL BREAST NOS 01/24/2017 TYRA LEZAMA N Ot 250.00 DIAB JOSÉ WO COMPL, TYPE II OR UNSPEC TY 01/24/2017 TYRA LEZAMA N Ot 355.8 MONONEURITIS LEG NOS 01/24/2017 TYRA LEZAMA N Ot 724.00 SPINAL STENOSIS NOS 01/24/2017 TYRA LEZAMA N Ot V10.3 HX OF BREAST MALIGNANCY 01/24/2017 TYRA LEZAMA N Ot V58.69 OTH MED,LT,CURRENT USE 01/24/2017 TYRA LEZAMA N Ot V67.1 RADIOTHERAPY FOLLOW-UP 01/24/2017 TYRA LEZAMA N Ot V67.2 CHEMOTHERAPY FOLLOW-UP 01/24/2017 TYRA LEZAMA N Ot 174.9 MALIGN NEOPL BREAST NOS 01/24/2017 TYRA LEZAMA N Ot 793.89 OTH (ABN) FINDINGS ON RADIOLOGICAL EXAMI 01/24/2017 TYRA LEZAMA N Ot V76.11 SCRN MAMMO-HIGH RISK PT, MALIGNANT NEOPL 01/24/2017 LIZBETH PASTRANA AEROSPACE MEDICINE PHYSICIAN Ot 174.9 MALIGN NEOPL BREAST NOS 01/24/2017 LIZBETH PASTRANA AEROSPACE MEDICINE PHYSICIAN Ot 793.80 UNSPEC ABNORMAL MAMMOGRAM 01/24/2017 TYRA LEZAMA N Ot 250.00 DIAB JOSÉ WO COMPL, TYPE II OR UNSPEC TY 01/24/2017 TYRA LEZAMA N Ot 355.8 MONONEURITIS LEG NOS 01/24/2017 TEJA BOBSARAH N Ot 724.00 SPINAL STENOSIS NOS 01/24/2017 TYRA LZEAMA N Ot V10.3 HX OF BREAST MALIGNANCY 01/24/2017 TYRA LEZAAM N Ot V58.69 OTH MED,LT,CURRENT USE 01/24/2017 TYRA LEZAMA N Ot V67.1 RADIOTHERAPY FOLLOW-UP 01/24/2017 TEJA, BOBAN N Ot V67.2 CHEMOTHERAPY FOLLOW-UP 01/24/2017 TEJA, BOBAN N Ot 174.9 MALIGN NEOPL BREAST NOS 01/24/2017 TEJA, BOBAN N Ot 250.00 DIAB JOSÉ WO COMPL, TYPE II OR UNSPEC TY 01/24/2017 TEJA, BOBAN N Ot 355.8 MONONEURITIS LEG NOS 01/24/2017 TEJA, BOBAN N Ot 724.00 SPINAL STENOSIS NOS 01/24/2017 TEJA BOBAN N Ot V10.3 HX OF BREAST MALIGNANCY 01/24/2017 TEJA, BOBAN N Ot V58.69 OTH MED,LT,CURRENT USE 01/24/2017 TEJA, BOBAN N Ot V67.1 RADIOTHERAPY FOLLOW-UP 01/24/2017 TEJA, BOBAN N Ot V67.2 CHEMOTHERAPY FOLLOW-UP 01/24/2017 TEJA, BOBAN N Ot 174.9 MALIGN NEOPL BREAST NOS 01/24/2017 TEJA, BOBAN N Ot 174.9 MALIGN NEOPL BREAST NOS 01/24/2017 TEJA, BOBAN N Ot 250.00 DIAB JOSÉ WO COMPL, TYPE II OR UNSPEC TY 01/24/2017 TEJA, BOBAN N Ot 355.8 MONONEURITIS LEG NOS 01/24/2017 TEJA, BOBAN N Ot 724.00 SPINAL STENOSIS NOS 01/24/2017 TEJA, BOBAN N Ot V10.3 HX OF BREAST MALIGNANCY 01/24/2017 TEJA, BOBAN N Ot V58.69 OTH MED,LT,CURRENT USE 01/24/2017 TEJA, BOBAN N Ot V67.1 RADIOTHERAPY FOLLOW-UP 01/24/2017 TEJA, BOBAN N Ot V67.2 CHEMOTHERAPY FOLLOW-UP 01/24/2017 TEJA, BOBAN N Ot 174.9 MALIGN NEOPL BREAST NOS 01/24/2017 TEJA, BOBAN N Ot 174.9 MALIGN NEOPL BREAST NOS 01/24/2017 CHON SALMON FACC, ALI FACP CCDS Ot 174.9 MALIGN NEOPL BREAST NOS 01/24/2017 CHON SALMON FACC, ALI FACP CCDS Ot 250.00 DIAB JOSÉ WO COMPL, TYPE II OR UNSPEC TY 01/24/2017 CHON SALMON FACMikey, ALI FACP CCDS Ot 272.4 HYPERLIPIDEMIA NEC/NOS 01/24/2017 CHON SALMON [facility] Ot 278.00 OBESITY, NOS 01/24/2017 CHON SALMON [facility]AC, [facility] Ot 401.9 HYPERTENSION NOS 01/24/2017 CHON SALMON [facility] Ot V85.30 BODY MASS INDEX 30.0-30.9, ADULT 01/24/2017 JUANA SALMON, ROSEANNA Avery Ot V72.84 EXAM PRE-OPERATIVE NOS 01/24/2017 ROSEANNA ARIAS MD Ot 174.9 MALIGN NEOPL BREAST NOS 01/24/2017 ROSEANNA ARIAS MD Ot V72.63 PRE-PROCEDURAL LABORATORY EXAMINATION 01/24/2017 ROSEANNA ARIAS MD Ot V74.8 SCREEN-BACTERIAL DIS NEC 01/24/2017 JUANA SALMON, ROSEANNA Avery Ot 786.6 CHEST SWELLING/MASS/LUMP 01/24/2017 RSOEANNA ARIAS MD Ot V45.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 01/24/2017 TYRA LEZAMA Ot 174.9 MALIGN NEOPL BREAST NOS 01/24/2017 TYRA LEZAMA Ot V15.3 HX OF IRRADIATION 01/24/2017 TYRA LEZAMA Ot V45.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 01/24/2017 TYRA LEZAMA Ot V58.69 OTH MED,LT,CURRENT USE 01/24/2017 TYRA LEZAMA Ot V87.41 PERSONAL HISTORY OF ANTINEOPLASTIC CHEMO 01/24/2017 ROSEANNA ARIAS MD Ot V10.3 HX OF BREAST MALIGNANCY 01/24/2017 ROSEANNA ARIAS MD Ot V72.84 EXAM PRE-OPERATIVE NOS 01/24/2017 LIZBETH PASTRANA AEROSPACE MEDICINE PHYSICIAN Ot C50.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 01/24/2017 LIZBETH PASTRANA AEROSPACE MEDICINE PHYSICIAN Ot E11.9 TYPE 2 DIABETES MELLITUS WITHOUT COMPLIC 01/24/2017 LIZBETH PASTRANA AEROSPACE MEDICINE PHYSICIAN Ot E78.0 PURE HYPERCHOLESTEROLEMIA 01/24/2017 LIZBETH PASTRANA AEROSPACE MEDICINE PHYSICIAN Ot G62.9 POLYNEUROPATHY, UNSPECIFIED 01/24/2017 LIZBETH PASTRANA AEROSPACE MEDICINE PHYSICIAN Ot I10 ESSENTIAL (PRIMARY) HYPERTENSION 01/24/2017 LIZBETH PASTRANA AEROSPACE MEDICINE PHYSICIAN Ot 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-] 01/24/2017 LIZBETH PASTRANA AEROSPACE MEDICINE PHYSICIAN Ot Z79.899 OTHER CUSTODIAL (CURRENT) DRUG THERAPY 01/24/2017 PASTRANALIZBETH Aguilera AEROSPACE MEDICINE PHYSICIAN Ot Z90.11 ACQUIRED ABSENCE OF RIGHT BREAST AND NIP 01/24/2017 LIZBETH PASTRANA AEROSPACE MEDICINE PHYSICIAN Ot Z92.21 PERSONAL HISTORY OF ANTINEOPLASTIC CHEMO 01/24/2017 LIZBETH PASTRANA AEROSPACE MEDICINE PHYSICIAN Ot Z92.3 PERSONAL HISTORY OF IRRADIATION 01/24/2017 PASTRANALIZBETH Aguilera AEROSPACE MEDICINE PHYSICIAN Ot 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 01/24/2017 PASTRANALIZBETH Aguilera AEROSPACE MEDICINE PHYSICIAN Ot 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 N 01/24/2017 PASTRANALIZBETH Aguilera AEROSPACE MEDICINE PHYSICIAN Ot 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-] 01/24/2017 PASTRANALIZBETH Aguilera AEROSPACE MEDICINE PHYSICIAN Ot 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 01/24/2017 PASTRANALIZBETH Aguilera AEROSPACE MEDICINE PHYSICIAN Ot Z90.11 ACQUIRED ABSENCE OF RIGHT BREAST AND NIP 01/24/2017 PASTRANA LIZBETH Aguilera AEROSPACE MEDICINE PHYSICIAN Ot 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 01/24/2017 PASTRANA LIZBETH Aguilera AEROSPACE MEDICINE PHYSICIAN Ot 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 N 01/24/2017 VICTORIANO LIZBETH Aguilera AEROSPACE MEDICINE PHYSICIAN Ot E11.9 TYPE 2 DIABETES MELLITUS WITHOUT COMPLIC 01/24/2017 PASTRANALIZBETH Aguilera AEROSPACE MEDICINE PHYSICIAN Ot E78.0 PURE HYPERCHOLESTEROLEMIA 01/24/2017 VICTORIANO LIZBETH Aguilera AEROSPACE MEDICINE PHYSICIAN Ot I10 ESSENTIAL (PRIMARY) HYPERTENSION 01/24/2017 PASTRANA LIZBETH Aguilera AEROSPACE MEDICINE PHYSICIAN Ot 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-] 01/24/2017 PASTRANALIZBETH Aguilera AEROSPACE MEDICINE PHYSICIAN Ot Z79.899 OTHER CUSTODIAL (CURRENT) DRUG THERAPY 01/24/2017 PASTRANALIZBETH Aguilera AEROSPACE MEDICINE PHYSICIAN Ot Z90.11 ACQUIRED ABSENCE OF RIGHT BREAST AND NIP 01/24/2017 VICTORIANOLIZBETH AEROSPACE MEDICINE PHYSICIAN Ot 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 01/24/2017 VICTORIANOLIZBETH AEROSPACE MEDICINE PHYSICIAN Ot C50.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 01/24/2017 LIZBETH PASTRANA AEROSPACE MEDICINE PHYSICIAN Ot 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 N 01/24/2017 LIZBETH PASTRANA Ale AEROSPACE MEDICINE PHYSICIAN Ot E11.9 TYPE 2 DIABETES MELLITUS WITHOUT COMPLIC 01/24/2017 LIZBETH PASTRANAP Ot E78.0 PURE HYPERCHOLESTEROLEMIA 01/24/2017 LIZBETH PASTRANA AEROSPACE MEDICINE PHYSICIAN Ot G62.9 POLYNEUROPATHY, UNSPECIFIED 01/24/2017 LIZBETH PASTRANA AEROSPACE MEDICINE PHYSICIAN Ot I10 ESSENTIAL (PRIMARY) HYPERTENSION 01/24/2017 LIZBETH PASTRANA AEROSPACE MEDICINE PHYSICIAN Ot 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-] 01/24/2017 LIZBETH PASTRANA AEROSPACE MEDICINE PHYSICIAN Ot Z79.899 OTHER CUSTODIAL (CURRENT) DRUG THERAPY 01/24/2017 LIZBETH PASTRANAP Ot Z90.11 ACQUIRED ABSENCE OF RIGHT BREAST AND NIP 01/24/2017 LIZBETH PASTRANAP Ot Z92.21 PERSONAL HISTORY OF ANTINEOPLASTIC CHEMO 01/24/2017 LIZBETH PASTRANAP Ot Z92.3 PERSONAL HISTORY OF IRRADIATION 01/24/2017 TEJA, TYRA Jackman Ot 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 01/24/2017 TEJA, TYRA Jackman Ot 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 N 01/24/2017 TEJA, TYRA N Ot E11.9 TYPE 2 DIABETES MELLITUS WITHOUT COMPLIC 01/24/2017 TEJA, VIRGILIOSAARH Gasper Ot E78.0 PURE HYPERCHOLESTEROLEMIA 01/24/2017 TEJA, TYRA Jackman Ot I10 ESSENTIAL (PRIMARY) HYPERTENSION 01/24/2017 TEJA VIRGILIOSARAH N Ot L20.9 ATOPIC DERMATITIS, UNSPECIFIED 01/24/2017 TEJA, VIRGILIOSARAH Gasper Ot 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-] 01/24/2017 TEJA, TYRA Jackman Ot Z79.899 OTHER CUSTODIAL (CURRENT) DRUG THERAPY 01/24/2017 TEJA TYRA N Ot Z90.11 ACQUIRED ABSENCE OF RIGHT BREAST AND NIP 01/24/2017 TEJATYRA Ot Z92.21 PERSONAL HISTORY OF ANTINEOPLASTIC CHEMO 01/24/2017 TYRA LEZAMA N Ot Z92.3 PERSONAL HISTORY OF IRRADIATION 01/24/2017 TEJA, TYRA Jackman Ot C50.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 01/24/2017 TEJATYRA N Ot E11.9 TYPE 2 DIABETES MELLITUS WITHOUT COMPLIC 01/24/2017 TEJA, BOBAN N Ot E78.0 PURE HYPERCHOLESTEROLEMIA 01/24/2017 TYRA LEZAMA N Ot G62.9 POLYNEUROPATHY, UNSPECIFIED 01/24/2017 TYRA LEZAMA N Ot I10 ESSENTIAL (PRIMARY) HYPERTENSION 01/24/2017 TYRA LEZAMA Ot 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-] 01/24/2017 TYRA LEZAMA N Ot 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 01/24/2017 TYRA LEZAMA N Ot Z90.11 ACQUIRED ABSENCE OF RIGHT BREAST AND NIP 01/24/2017 TYRA LEZAMA N Ot Z92.21 PERSONAL HISTORY OF ANTINEOPLASTIC CHEMO 01/24/2017 TYRA LEZAMA N Ot Z92.3 PERSONAL HISTORY OF IRRADIATION 01/24/2017 TYRA LEZAMA N Ot 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 01/24/2017 TYRA LEZAMA N Ot 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 N 01/24/2017 TYRA LEZAMA N Ot E11.9 TYPE 2 DIABETES MELLITUS WITHOUT COMPLIC 01/24/2017 TYRA LEZAMA N Ot E78.0 PURE HYPERCHOLESTEROLEMIA 01/24/2017 TYRA LEZAMA N Ot I10 ESSENTIAL (PRIMARY) HYPERTENSION 01/24/2017 TYRA LEZAMA Ot L20.9 ATOPIC DERMATITIS, UNSPECIFIED 01/24/2017 TYRA LEZAMA N Ot 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-] 01/24/2017 TYRA LEZAMA N Ot 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 01/24/2017 TYRA LEZAMA N Ot Z90.11 ACQUIRED ABSENCE OF RIGHT BREAST AND NIP 01/24/2017 TYRA LEZAMA N Ot Z92.21 PERSONAL HISTORY OF ANTINEOPLASTIC CHEMO 01/24/2017 TYRA LEZAMA N Ot Z92.3 PERSONAL HISTORY OF IRRADIATION 01/24/2017 CHON SALMON FACMikey, GRACIELA FACP CCDS Ot 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 01/24/2017 CHON SALMON FACC, ALI FACP CCDS Ot E11.9 TYPE 2 DIABETES MELLITUS WITHOUT COMPLIC 01/24/2017 CHON SALMON FACC, ALI FACP CCDS Ot E78.0 PURE HYPERCHOLESTEROLEMIA 01/24/2017 CHON SALMON FACC, ALI FACP CCDS Ot I10 ESSENTIAL (PRIMARY) HYPERTENSION 01/24/2017 TYRA LEZAMA N Ot 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 01/24/2017 TYRA LEZAMA N Ot 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 N 01/24/2017 TYRA LEZAMA N Ot E78.0 PURE HYPERCHOLESTEROLEMIA 01/24/2017 TYRA LEZAMA N Ot I10 ESSENTIAL (PRIMARY) HYPERTENSION 01/24/2017 TYRA LEZAMA N Ot L20.9 ATOPIC DERMATITIS, UNSPECIFIED 01/24/2017 TYRA LEZAMA N Ot 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-] 01/24/2017 TYRA LEZAMA N Ot Z79.899 OTHER CUSTODIAL (CURRENT) DRUG THERAPY 01/24/2017 TYRA LEZAMA N Ot Z90.11 ACQUIRED ABSENCE OF RIGHT BREAST AND NIP 01/24/2017 TYRA LEZAMA N Ot Z92.21 PERSONAL HISTORY OF ANTINEOPLASTIC CHEMO 01/24/2017 TYRA LEZAMA N Ot Z92.3 PERSONAL HISTORY OF IRRADIATION 01/24/2017 TYRA LEZAMA N Ot 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 01/24/2017 TYRA LEZAMA N Ot 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 N 01/24/2017 TYRA LEZAMA N Ot E78.00 PURE HYPERCHOLESTEROLEMIA, UNSPECIFIED 01/24/2017 TYRA LEZAMA N Ot G62.9 POLYNEUROPATHY, UNSPECIFIED 01/24/2017 TYRA LEZAMA N Ot I10 ESSENTIAL (PRIMARY) HYPERTENSION 01/24/2017 TYRA LEZAMA N Ot L20.9 ATOPIC DERMATITIS, UNSPECIFIED 01/24/2017 TYRA LEZAMA N Ot 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-] 01/24/2017 TYRA LEZAMA N Ot 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 01/24/2017 TYRA LEZAMA N Ot Z90.11 ACQUIRED ABSENCE OF RIGHT BREAST AND NIP 01/24/2017 TYRA LEZAMA N Ot Z92.21 PERSONAL HISTORY OF ANTINEOPLASTIC CHEMO 01/24/2017 TYRA LEZAMA N Ot Z92.3 PERSONAL HISTORY OF IRRADIATION 01/24/2017 TYRA LEZAMA N Ot Z12.31 ENCNTR SCREEN MAMMOGRAM FOR MALIGNANT NE 01/24/2017 TEJA VIRGILIOSARAH N Ot Z85.3 PERSONAL HISTORY OF MALIGNANT NEOPLASM O 01/24/2017 TYRA LEZAMA Ot 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 01/24/2017 TYRA LEZAMA Ot 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 N 01/24/2017 TYRA LEZAMA N Ot E78.00 PURE HYPERCHOLESTEROLEMIA, UNSPECIFIED 01/24/2017 TYRA LEZAMA Ot G62.9 POLYNEUROPATHY, UNSPECIFIED 01/24/2017 TYRA LEZAMA N Ot I10 ESSENTIAL (PRIMARY) HYPERTENSION 01/24/2017 TYRA LEZAMA Ot L20.9 ATOPIC DERMATITIS, UNSPECIFIED 01/24/2017 TYRA LEZAMA N Ot 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-] 01/24/2017 TYRA LEZAMA N Ot Z79.899 OTHER CUSTODIAL (CURRENT) DRUG THERAPY 01/24/2017 TYRA LEZAMA N Ot Z90.11 ACQUIRED ABSENCE OF RIGHT BREAST AND NIP 01/24/2017 TYRA LEZAMA N Ot Z92.21 PERSONAL HISTORY OF ANTINEOPLASTIC CHEMO 01/24/2017 TYRA LEZAMA N Ot Z92.3 PERSONAL HISTORY OF IRRADIATION 01/24/2017 TYRA LEZAMA Ot 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 01/24/2017 TYRA LEZAMA N Ot 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 N 01/24/2017 TYRA LEZAMA N Ot E78.00 PURE HYPERCHOLESTEROLEMIA, UNSPECIFIED 01/24/2017 TYRA LEZMAA N Ot G62.9 POLYNEUROPATHY, UNSPECIFIED 01/24/2017 TYRA LEZAMA N Ot I10 ESSENTIAL (PRIMARY) HYPERTENSION 01/24/2017 TYRA LEZAMA N Ot 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 Visit Date/Time Discharge Status Pt. Type Provider Facility Loc./Unit Complaint [id number] 01/24/2017 11:31:00 2016 11:55:00 DIS Outpatient ROSEANNA ARIAS MD [facility] PREOP BREAST CANCER [id number] 05/01/2016 10:47:00 2015 14:10:00 DIS Outpatient ROSEANNA ARIAS MD [facility] HISTORY OF POLYPS [id number] 04/27/2016 05:37:00 2015 12:58:00 DIS Outpatient ROSEANNA ARIAS MD [facility] PREOP HISTORY OF POLYPS [id number] 10/20/2015 09:59:00 2015 00:01:00 DIS Outpatient TYRA LEZAMA [facility] ONC [id number] 08/04/2015 10:25:00 2014 00:01:00 DIS Outpatient TYRA LEZAMA [facility] ONC [id number] 05/06/2015 10:21:00 2014 23:59:59 CLS Outpatient LIZBETH PASTRANA [facility] ONC [id number] 04/30/2015 11:52:00 2014 16:50:00 DIS Outpatient ROSEANNA ARIAS MD [facility] SDC BREAST CA [id number] 04/29/2015 08:20:00 2014 23:59:59 CLS Outpatient ROSEANNA ARIAS MD [facility] PREOP HX BREAST CA [id number] 04/27/2015 11:19:00 2014 23:59:59 CLS Outpatient TYRA LEZAMA [facility] FS [id number] 04/09/2015 13:59:00 2014 23:59:59 CLS Outpatient ROSEANNA ARIAS MD [facility] RAD POST OP MASTECTOMY [id number] 02/22/2015 11:07:00 2014 15:40:00 DIS Outpatient ROSEANNA ARIAS MD [facility] RIGHT BREAST CANCER [id number] 02/19/2015 06:41:00 2014 23:59:59 CLS Outpatient ROSEANNA ARIAS MD [facility] PREOP RIGHT BREAST CANCER [id number] 02/15/2015 09:48:00 2014 12:20:00 DIS Outpatient ROSEANNA ARIAS MD [facility] SCREENING; ABNORMAL PET SCAN [id number] 02/12/2015 06:50:00 2014 23:59:59 CLS Outpatient ROSEANNA ARIAS MD [facility] PREOP SCREENING; ABNORMAL PET SCAN [id number] 02/04/2015 07:27:00 2014 23:59:59 CLS Outpatient CHON SALMON FACC, GRACIELA HAJI CCDS [facility] CARD HTN,DM,BREAST CA [id number] 02/02/2015 10:56:00 2014 23:59:59 CLS Outpatient TEJA BOBAN N [facility] RAD BREAST CA [id number] 01/28/2015 09:25:00 2014 23:59:59 CLS Outpatient TEJA BOBAN N [facility] CARD BREAST CA, [id number] 01/26/2015 10:18:00 2014 23:59:59 CLS Outpatient TEJA BOBAN N [facility] FS [id number] 01/20/2015 10:35:00 2014 23:59:59 CLS Outpatient TEJA BOBAN N [facility] RAD BREAST MASS [id number] 01/18/2015 14:07:00 2014 23:59:59 CLS Outpatient TEJA BOBAN N [facility] RAD BREAST CA [id number] 01/27/2014 10:08:00 2013 23:59:59 CLS Outpatient TEJA BOBAN N [facility] FS [id number] 01/13/2014 11:34:00 2013 23:59:59 CLS Outpatient TEJA, BOBAN N [facility] RAD BREAST CA [id number] 06/24/2013 10:38:00 2012 23:59:59 CLS Outpatient TYRA LEZAMA [facility] FS [id number] 01/13/2013 13:33:00 2012 23:59:59 CLS Outpatient LIZBETH PASTRANA [facility] RAD BREAST CA,ABN MAMMOGRAM [id number] 01/06/2013 09:15:00 2012 23:59:59 CLS Outpatient TYRA LEZAMA [facility] RAD BREAST CA,ANNUAL FOLLOW-UP [id number] 12/24/2012 12:04:00 2012 23:59:59 CLS Outpatient TYRA LEZAMA [facility] FS [id number] 01/31/2017 09:00:00 PEN Preadmit ROSEANNA ARIAS MD [facility] BREAST CANCER [id number] 01/09/2017 13:29:00 ACT Outpatient TYRA LEZAMA [facility] FS [id number] 10/10/2016 10:54:00 ACT Outpatient TYRA LEZAMA N [facility] FS [id number] 08/01/2016 12:59:00 ACT Outpatient TYRA LEZAMA N [facility] RAD SCREENING [id number] 07/11/2016 12:59:00 ACT Outpatient TYRA LEZAMA N [facility] FS [id number] 04/11/2016 11:03:00 ACT Outpatient TYRA LEZAMA N [facility] FS [id number] 03/21/2016 11:32:00 ACT Outpatient CHON SALMON FACC, GRACIELA HAJI CCDS [facility] CARD C50.111 [id number] 03/21/2016 11:32:00 Document Registration [id number] 01/11/2016 15:06:00 ACT Outpatient TYRA LEZAMA [facility] FS [id number] 11/10/2015 00:09:00 PEN Preadmit TYRA LEZAMA [facility] ONC [id number] 11/09/2015 11:35:00 ACT Outpatient TYRA LEZAMA Gasper [facility] FS [id number] 09/29/2015 10:40:00 ACT Outpatient LIZBETH PASTRANA [facility] ONC [id number] 09/01/2015 13:33:00 ACT Outpatient LIZBETH PASTRANA AEROSPACE MEDICINE PHYSICIAN [facility] ONC [id number] 08/04/2015 10:27:00 ACT Outpatient LIZBETH PASTRANA AEROSPACE MEDICINE PHYSICIAN [facility] ONC [id number] 07/02/2012 13:32:00 Document Registration [id number] 01/17/2012 08:46:00 Document Registration [id number] 01/09/2012 14:22:00 Document Registration [id number] 06/20/2011 13:27:00 Document Registration [id number] 03/21/2011 10:41:00 Document Registration [id number] 01/05/2011 09:36:00 Document Registration [id number] 12/20/2010 11:34:00 Document Registration
[2017-01-31] MEDS ORDERED: ceFAZolin 1 GM/NS 50 ML IVPB IV ONE ×2 (10:45)
[2017-01-31] MEDS ORDERED: PROPOFOL INJECTION 50 ML IV ONE (10:49)
[2017-01-31] MEDS ORDERED: diphenhydrAMINE 50 MG/ML INJ (BENADRYL) ONE (10:49)
--- NOTE | 2017-01-31 11:06 | Progress Note-Post Operative ---
Post-Operative Progess Note Surgeon (s)/Pipe Out Worker (s) Surgeon ROSEANNA ARIAS MD Pipe Out Worker: Not applicable Pre-Operative Diagnosis treated breast carcinoma Post-Operative Diagnosis Same Procedure & Operative Findings Date of Procedure 01/31/17 Procedure Performed/Findings Removal of infusaport Anesthesia Type Sedation with local Estimated Blood Loss Estimated blood loss (mL): Minimal Specimens/Packing Specimens Removed None ROSEANNA ARIAS MD Jan 31, 2017 11:06 am
--- NOTE | 2017-01-31 11:08 | Operative Report ---
Operative Report Date of Procedure/Surgery Jan 31, 2017 Surgeon (s) ROSEANNA ARIAS MD Insurance Adjustor (s): Not applicable Post-Operative Diagnosis Same Procedure Performed removal of Iorxbb-o-Zqxt Description of Procedure Anesthesia Type: MAC Estimated blood loss (mL): Minimal Specimen(s) collected/removed none Description of the Procedure 1 g of Ancef was administered intravenously as prophylaxis against wound infection. Sequential compression devices were placed around her legs, to minimize the risk of venous thrombosis. Left infraclavicular region was prepared and draped in the usual sterile manner. Local anesthesia was achieved using quarter percent Marcaine with epinephrine. By making a secondary incision along the previous scar, port was removed without risking air embolism. Incision was then closed using 3-0 Vicryl for the subcutaneous tissue and 4-0 Vicryl for skin, in a subcuticular fashion. A nonadherent dressing was then applied. Tolerated procedure well and was taken to the recovery room in a stable condition Findings of the Procedure Vogezi-g-Bmwh in satisfactory position Allergies and Home Medications Allergies Coded Allergies: acetaminophen (Verified Allergy, Unknown, 05/06/15) atorvastatin (Verified Allergy, Unknown, 05/06/15) hydrocodone (Verified Allergy, Unknown, 05/06/15) ibuprofen (Verified Allergy, Unknown, 05/06/15) loratadine (Verified Allergy, Unknown, 05/06/15) morphine (Verified Allergy, Unknown, 05/06/15) ofloxacin (Verified Allergy, Unknown, 05/06/15) Home Medications Gabapentin 300 Mg Capsule, 300 MG PO TID, (Reported) Glipizide 10 Mg Tablet, 10 MG PO HS, (Reported) Levothyroxine Sodium 100 Mcg Tablet, 100 MCG PO DAILY, (Reported) Lisinopril 10 Mg Tablet, 5 MG PO DAILY, (Reported) TAKE 1/2 OF (10MG) TAB Metformin Hcl 1,000 Mg Tablet, 1,000 MG PO HS, (Reported) Sitagliptin Phosphate 100 Mg Tablet, 100 MG PO HS, (Reported) ROSEANNA ARIAS MD Jan 31, 2017 11:08 am
[2017-01-31] MEDS ORDERED: TRAM50TA2 PO (11:09)
[2017-01-31 11:40] VITALS: BP 129/50
[2017-01-31 12:10] VITALS: BP 139/70
[2017-01-31 12:32] VITALS: BP 139/70
== END 2017-01-31 12:32 | disposition home or self-care (01) ==
LOC: SDC 09:50
PROVIDERS: ATTEND Surgery
DX: C50.919 Malignant neoplasm of unspecified site of unspecified female breast (principal); E11.9 Type 2 diabetes mellitus without complications; I10 Essential (primary) hypertension; E03.9 Hypothyroidism, unspecified; Z79.899 Other long term (current) drug therapy
CPT/HCPCS: 82962

== ENCOUNTER 2017-05-08 13:40 | Outpatient (RCR) | payer MEDICARE, OTHER ==
[~2017-05-08 13:40] MED LIST changes: +ACHD5005 PO; -HYDR-3812 PO; +TRAM50TA2 PO
== END 2017-08-06 | disposition home or self-care (01) ==
LOC: ONC 13:40
PROVIDERS: ATTEND Internal Medicine Hematology & Oncology
DX: C50.111 Malignant neoplasm of central portion of right female breast (principal); E03.9 Hypothyroidism, unspecified; E11.42 Type 2 diabetes mellitus with diabetic polyneuropathy; I10 Essential (primary) hypertension; E78.00 Pure hypercholesterolemia, unspecified; Z17.1 Estrogen receptor negative status [ER-]; Z90.11 Acquired absence of right breast and nipple; Z79.899 Other long term (current) drug therapy; Z92.21 Personal history of antineoplastic chemotherapy; Z92.3 Personal history of irradiation
CPT/HCPCS: 36415; 84443; 99213

== ENCOUNTER → 2017-08-02 | Outpatient (CLI) | payer MEDICARE, OTHER | LOC: RAD 10:22 | PROVIDERS: ATTEND Nurse Practitioner Adult Health | DX: Z12.31 Encounter for screening mammogram for malignant neoplasm of breast (principal); C50.111 Malignant neoplasm of central portion of right female breast ==

== ENCOUNTER 2017-11-06 13:48 | Outpatient (RCR) | payer MEDICARE, OTHER | END 2018-02-04 | disposition home or self-care (01) | LOC: ONC 13:48 | PROVIDERS: ATTEND Internal Medicine Hematology & Oncology | DX: C50.111 Malignant neoplasm of central portion of right female breast (principal); E03.9 Hypothyroidism, unspecified; E11.42 Type 2 diabetes mellitus with diabetic polyneuropathy; I10 Essential (primary) hypertension; E78.00 Pure hypercholesterolemia, unspecified; K29.70 Gastritis, unspecified, without bleeding; Z17.1 Estrogen receptor negative status [ER-]; Z90.11 Acquired absence of right breast and nipple; Z79.899 Other long term (current) drug therapy; Z92.21 Personal history of antineoplastic chemotherapy; Z92.3 Personal history of irradiation | CPT/HCPCS: 99213 ==

== ENCOUNTER 2018-05-08 13:05 | Outpatient (RCR) | payer MEDICARE, OTHER | END 2018-08-06 | disposition home or self-care (01) | LOC: ONC 13:05 | PROVIDERS: ATTEND Internal Medicine Hematology & Oncology | DX: C50.111 Malignant neoplasm of central portion of right female breast (principal); E03.9 Hypothyroidism, unspecified; E11.42 Type 2 diabetes mellitus with diabetic polyneuropathy; I10 Essential (primary) hypertension; E78.00 Pure hypercholesterolemia, unspecified; K29.70 Gastritis, unspecified, without bleeding; Z17.1 Estrogen receptor negative status [ER-]; Z90.11 Acquired absence of right breast and nipple; Z79.899 Other long term (current) drug therapy; Z92.21 Personal history of antineoplastic chemotherapy; Z92.3 Personal history of irradiation | CPT/HCPCS: 99213 ==

== ENCOUNTER → 2018-08-07 | Outpatient (CLI) | payer MEDICARE, OTHER ==
--- NOTE | 2018-08-07 18:26 | Diagnostic Imaging Report ---
EXAMINATION: Unilateral left screening mammogram with 3D tomosynthesis and computer-aided Detection (CAD) system. INDICATION: Screening. This study was compared to the prior exams of 08/02/2017, 08/01/2016, and 01/18/2015. The patient has had a prior mastectomy for carcinoma of the right breast in 2006. At this time, there are no current complaints. FINDINGS: The fibroglandular tissue in the left breast is heterogeneously dense. This does limit the sensitivity of this exam. Overall, there does not appear to have been any significant change when compared to the prior study. There is no primary or secondary sign of malignancy noted. IMPRESSION: There is no evidence for malignancy. ACR BI-RADS Category 1: Negative. Result letter will be mailed to the patient. Note: At least 10% of breast cancer is not imaged by mammography. Dictated by: Dictated on workstation # [id number]
== END ==
LOC: RAD 10:11
PROVIDERS: ATTEND Nurse Practitioner Adult Health
DX: Z12.31 Encounter for screening mammogram for malignant neoplasm of breast (principal); C50.111 Malignant neoplasm of central portion of right female breast

== ENCOUNTER 2018-10-30 12:46 | Outpatient (RCR) | payer MEDICARE, OTHER | END 2019-01-28 | disposition home or self-care (01) | LOC: ONC 12:46 | PROVIDERS: ATTEND Internal Medicine Hematology & Oncology | DX: C50.111 Malignant neoplasm of central portion of right female breast (principal); E03.9 Hypothyroidism, unspecified; E11.42 Type 2 diabetes mellitus with diabetic polyneuropathy; I10 Essential (primary) hypertension; E78.00 Pure hypercholesterolemia, unspecified; K29.70 Gastritis, unspecified, without bleeding; Z17.1 Estrogen receptor negative status [ER-]; Z90.11 Acquired absence of right breast and nipple; Z79.899 Other long term (current) drug therapy; Z92.21 Personal history of antineoplastic chemotherapy; Z92.3 Personal history of irradiation | CPT/HCPCS: 99213 ==

== ENCOUNTER → 2018-11-12 | Outpatient (CLI) | payer MEDICARE, OTHER ==
[~2018-11-12] VITALS: Ht 152.4 cm; Wt 65.3 kg
[~2018-11-12] MED LIST changes: +CATHETER FLUSH 10 ML SYR IV PRN; +REGADENOSON 0.4 MG/5 ML SYR (LEXISCAN) IV ONE
[2018-11-12 12:25] VITALS: BP 157/62
[2018-11-12 12:45] VITALS: BP 152/56
--- NOTE | 2018-11-12 20:13 | STRESS TEST ---
DATE OF SERVICE: 11/12/2018 RESTING AND POST REGADENOSON TECHNETIUM-99M TETROFOSMIN SPECT CT IMAGING ORDERING PHYSICIAN: Dr. Sy. PRIMARY PHYSICIAN: Dr. Rios. CLINICAL DIAGNOSES: Malaise, hyperlipidemia, diabetes, hypertension. Baseline images were carried out after injection of 10.07 mCi of technetium-99m Tetrofosmin. This was followed by 0.4 mg of regadenoson and 29.6 mCi of technetium-99m Tetrofosmin for stress imaging. The electrocardiogram showed sinus rhythm at baseline. It did not change significantly with the regadenoson infusion. The patient tolerated the procedure well. Review of images at rest and following stress does not indicate any significant perfusion defects consistent with significant myocardial ischemia or infarction. Gated images show normal global left ventricular systolic function, normal regional wall motion. Left ventricular ejection fraction is calculated to be 70%. CONCLUSIONS: 1. No evidence of significant myocardial ischemia or infarction on this study. 2. Normal to hyperdynamic left ventricular systolic function with a calculated ejection fraction 70%. 3. Normal regional wall motion. Job ID: [id number] DocumentID: [id number] Dictated Date: 11/12/2018 16:48:40 Import Dispatcher Date: 11/12/2018 20:12:27 Dictated By: GRACIELA SY MD, MA, FACP, FACC,
== END ==
LOC: CARD 10:48
PROVIDERS: ATTEND Internal Medicine Cardiovascular Disease
DX: E11.9 Type 2 diabetes mellitus without complications (principal); I10 Essential (primary) hypertension; R53.81 Other malaise; E78.5 Hyperlipidemia, unspecified; C50.111 Malignant neoplasm of central portion of right female breast
CPT/HCPCS: 78452; 93017

== ENCOUNTER 2019-04-29 12:47 | Outpatient (RCR) | payer MEDICARE, OTHER ==
[~2019-04-29 12:47] MED LIST changes: -CATHETER FLUSH 10 ML SYR IV PRN; -REGADENOSON 0.4 MG/5 ML SYR (LEXISCAN) IV ONE
[2019-04-29 12:58] LABS: BASOPHILS % (AUTO) 0 % (0-10); EOSINOPHILS % (AUTO) 0 % (0-10); HEMATOCRIT 38 % (35-52); HEMOGLOBIN 12.5 G/DL (11.5-16.0); LYMPHOCYTES # (AUTO) 1.7 X 10^3 (1.0-4.0); LYMPHOCYTES % (AUTO) 23 % (12-44); MEAN CORPUSCULAR HEMOGLOBIN 29 PG (25-34); MEAN CORPUSCULAR HGB CONC 33 G/DL (32-36); MEAN CORPUSCULAR VOLUME 87 FL (80-99); MEAN PLATELET VOLUME 9.3 FL (7.4-10.4); MONOCYTES # (AUTO) 0.4 X 10^3 (0.0-1.0); MONOCYTES % (AUTO) 5 % (0-12); NEUTROPHILS # (AUTO) 5.1 X 10^3 (1.8-7.8); NEUTROPHILS % (AUTO) 71 % (42-75); PLATELET COUNT 406 10^3/uL (130-400); RED CELL DISTRIBUTION WIDTH 13.8 % (10.0-14.5); WHITE BLOOD COUNT 7.2 10^3/uL (4.3-11.0)
[2019-04-29 13:17] LABS: ALANINE AMINOTRANSFERASE 10 U/L (0-55); ALBUMIN 4.2 GM/DL (3.2-4.5); ALKALINE PHOSPHATASE 85 U/L (40-136); BILIRUBIN,TOTAL 0.6 MG/DL (0.1-1.0); BUN/CREATININE RATIO 15; CALCIUM 9.6 MG/DL (8.5-10.1); CARBON DIOXIDE 25 MMOL/L (21-32); CHLORIDE 104 MMOL/L (98-107); CREATININE SERUM 0.88 MG/DL (0.60-1.30); GFR ESTIMATED > 60; GLUCOSE 99 MG/DL (70-105); POTASSIUM 4.2 MMOL/L (3.6-5.0); SODIUM 137 MMOL/L (135-145); TOTAL PROTEIN 7.3 GM/DL (6.4-8.2)
== END 2019-07-28 | disposition home or self-care (01) ==
LOC: ONC 12:47
PROVIDERS: ATTEND Internal Medicine Hematology & Oncology
DX: C50.111 Malignant neoplasm of central portion of right female breast (principal); E03.9 Hypothyroidism, unspecified; E11.42 Type 2 diabetes mellitus with diabetic polyneuropathy; I10 Essential (primary) hypertension; E78.00 Pure hypercholesterolemia, unspecified; K29.70 Gastritis, unspecified, without bleeding; Z17.1 Estrogen receptor negative status [ER-]; Z90.11 Acquired absence of right breast and nipple; Z79.899 Other long term (current) drug therapy; Z92.21 Personal history of antineoplastic chemotherapy; Z92.3 Personal history of irradiation
CPT/HCPCS: 36415; 80053; 85025; 99213

== ENCOUNTER → 2019-08-15 | Outpatient (CLI) | payer MEDICARE, OTHER ==
[~2019-08-15] MED LIST changes: -TRAM50TA2 PO; +TRM50T PO
--- NOTE | 2019-08-15 13:06 | Diagnostic Imaging Report ---
INDICATION: Routine screening. Comparison is made with prior mammogram 08/07/2018 and 08/02/2017. 2-D and 3-D unilateral left screening mammography was performed with CAD. Scattered fibroglandular densities in left breast are noted. Benign parenchymal and vascular calcifications are noted. No mass or malignant-appearing microcalcifications are seen. Left axilla is unremarkable. IMPRESSION: BI-RADS Category 2 No mammographic features suspicious for malignancy are identified. ACR BI-RADS Category 2: Benign findings. Result letter will be mailed to the patient. Note: At least 10% of breast cancer is not imaged by mammography. Dictated by: Dictated on workstation # [id number]
== END ==
LOC: RAD 08:50
PROVIDERS: ATTEND Internal Medicine Hematology & Oncology
DX: Z12.31 Encounter for screening mammogram for malignant neoplasm of breast (principal); C50.111 Malignant neoplasm of central portion of right female breast

== ENCOUNTER 2019-10-10 18:25 | Emergency (ER) | payer MEDICARE, OTHER ==
[~2019-10-10] VITALS: Ht 154.9 cm; Wt 66.0 kg
[2019-10-10 18:27] VITALS: BP 152/78
--- NOTE | 2019-10-10 18:41 | ED EENT ---
History of Present Illness General Chief Complaint: Dental Problems/Pain Stated Complaint: POSS INFECTION IN GUMS Source: patient Exam Limitations: no limitations History of Present Illness Date Seen by Provider: Oct 10, 2019 Time Seen by Provider: 18:35 Initial Comments Left jaw and dental pain for 3 days, waxing and waning, but not resolving. Hx of dental problems in the same area, but has not seen a Dentist for a couple years. Denies neck pain, chest pain, shoulder pain. Denies soa or radiation of pain to Left arm. Allergies and Home Medications Allergies Coded Allergies: atorvastatin (Verified Allergy, Unknown, 05/06/15) ibuprofen (Verified Allergy, Unknown, 05/06/15) loratadine (Verified Allergy, Unknown, 05/06/15) morphine (Verified Allergy, Unknown, 05/06/15) ofloxacin (Verified Allergy, Unknown, 05/06/15) Home Medications Gabapentin 300 Mg Capsule, 300 MG PO TID, (Reported) Glipizide 10 Mg Tablet, 10 MG PO HS, (Reported) Levothyroxine Sodium 100 Mcg Tablet, 100 MCG PO DAILY, (Reported) Lisinopril 10 Mg Tablet, 5 MG PO DAILY, (Reported) TAKE 1/2 OF (10MG) TAB Metformin Hcl 1,000 Mg Tablet, 1,000 MG PO HS, (Reported) Penicillin V Potassium 500 Mg Tablet, 500 MG PO TID Prescribed by: JOHN BROWN on 10/10/191846 Sitagliptin Phosphate 100 Mg Tablet, 100 MG PO HS, (Reported) Tramadol HCl 50 Mg Tablet, 50 MG PO Q12H PRN for PAIN-MILD TO MODERATE Prescribed by: ROSEANNA ARIAS on 01/31/17 1109 Tramadol HCl 50 Mg Tablet, 50 MG PO Q6H Prescribed by: JOHN BROWN on 10/10/191846 Patient Home Medication List Home Medication List Reviewed: Yes Review of Systems Review of Systems Constitutional: see HPI; No fever, No malaise, No weakness Mouth: see HPI, pain, swelling (of gums), other (bad teeth, previous dental work on left side...upper and lower) Throat: denies pain, denies swelling, denies neck stiffness, denies hoarse Respiratory: No cough, No dyspnea on exertion, No short of breath Cardiovascular: No chest pain, No Hx of Intervention, No palpitations, No syncope Gastrointestinal: No abdominal pain, No nausea, No vomiting Musculoskeletal: No back pain, No neck pain Skin: see HPI; No change in color, No rash Past Yxculqf-Iwmtup-Vrforo Hx Past Med/Social Hx: Reviewed Nursing Past Med/Soc Hx Patient Social History Alcohol Use: Denies Use Recreational Drug Use: No Smoking Status: Never a Smoker 2nd Hand Smoke Exposure: No Recent Foreign Travel: No Contact w/Someone Who Travel: No Recent Hopitalizations: No Physical Abuse: No Sexual Abuse: No Mistreated: No Fear: No Immunizations Up To Date Date of Pneumonia Vaccine: Feb 15, 2010 Seasonal Allergies Seasonal Allergies: Yes Past Medical History Surgeries: Yes (RIGHT BREAST LUMPECTOMY, BACK SX, RIGHT BREAST MASTECTOMY) Gallbladder, Hysterectomy Respiratory: No Cardiac: Yes Heart Murmur, Hypertension Neurological: No Reproductive Disorders: No Genitourinary: Yes UTI-Chronic Gastrointestinal: No Musculoskeletal: Yes Arthritis, Chronic Back Pain Endocrine: Yes Hypothyroidsim, Diabetes, Non-Insulin dep Hearing Impairment: Hard of Hearing Cancer: Yes Breast Psychosocial: No Integumentary: No Blood Disorders: No Physical Exam Vital Signs Vital Signs - First Documented 10/10/19 18:27 Temp 36.4 Pulse 119 Resp 16 B/P (MAP) 152/78 (102) Pulse Ox 100 O2 Delivery Room Air Height, Weight, BMI Height: 5'0.00" Weight: 144lbs. 0.0oz. 65.631419qn; 28.1 BMI Method: General Appearance: WD/WN, no apparent distress; No mild distress Eyes: bilateral eye PERRL, bilateral eye EOMI Ears: bilateral ear auricle normal, bilateral ear canal normal, bilateral ear TM normal Nose: normal inspection; No sinus tenderness Mouth/Throat: pharynx normal, dental tenderness (left lower pre-molar (signifi cant decay w moderate gum swelling and tenderness, without an abscess)); No excessive drooling, No mandibular swelling, No maxillary swelling, No pharynx swelling, No tongue swollen, No tonsillar exudate, No tonsillar swelling, No uvula swelling, No voice changes Neck: non-tender, supple; No limited range of motion, No lymphadenopathy (R), No lymphadenopathy (L) Cardiovascular: regular rate, rhythm, no edema, no JVD Respiratory: chest non-tender, lungs clear Neurologic/Psychiatric: alert, normal mood/affect Skin: normal color, warm/dry Progress/Results/Core Measures Results/Orders My Orders Orders - JOHN BROWN DO Ekg Tracing (10/10/19 18:38) Vital Signs/I&O 10/10/19 18:27 Temp 36.4 Pulse 119 Resp 16 B/P (MAP) 152/78 (102) Pulse Ox 100 O2 Delivery Room Air Initial ECG Impression Time: 18:45 Initial ECG Rate: 87 Initial ECG Rhythm: Normal Sinus Initial ECG Intervals: Normal Initial ECG Impression: Normal Initial ECG Comparisson: No Previous ECG Available Departure Impression Primary Impression: Mandible pain Additional Impression: Dental caries Disposition: HOME, SELF-CARE Condition: Stable Departure-Patient Inst. Referrals: SELF,JUANITA SALMON (PCP/Family) Primary Care Physician Patient Instructions: Tooth Decay, Adult (DC) Scripts Penicillin V Potassium (Penicillin V Potassium) 500 Mg Tablet 500 MG PO TID, #15 TAB Prov: JOHN BROWN DO 10/10/19 Tramadol HCl (Ultram) 50 Mg Tablet 50 MG PO Q6H, #10 TAB Prov: JOHN BROWN DO 10/10/19 JOHN BROWN DO Oct 10, 2019 18:41
[2019-10-10] MEDS ORDERED: PENI500T PO (18:47)
[2019-10-10] MEDS ORDERED: TRAM-42 PO (18:47)
== END 2019-10-10 18:59 | disposition home or self-care (01) ==
LOC: EDUNIT# 18:25 → ER FS 18:26
DX: K02.9 Dental caries, unspecified (principal); R68.84 Jaw pain; I10 Essential (primary) hypertension; E11.9 Type 2 diabetes mellitus without complications; E03.9 Hypothyroidism, unspecified; Z88.5 Allergy status to narcotic agent; Z85.3 Personal history of malignant neoplasm of breast; Z88.8 Allergy status to other drugs, medicaments and biological substances; Z88.1 Allergy status to other antibiotic agents; Z88.6 Allergy status to analgesic agent; Z79.84 Long term (current) use of oral hypoglycemic drugs
CPT/HCPCS: 93005

== ENCOUNTER → 2019-12-17 | Outpatient (CLI) | payer MEDICARE, OTHER ==
[~2019-12-17] MED LIST changes: +PENI500T PO
[2019-12-17 14:16] LABS: BASOPHILS % (AUTO) 0 % (0-10); EOSINOPHILS % (AUTO) 0 % (0-10); HEMATOCRIT 37 % (35-52); HEMOGLOBIN 12.3 G/DL (11.5-16.0); LYMPHOCYTES # (AUTO) 1.2 X 10^3 (1.0-4.0); LYMPHOCYTES % (AUTO) 13 % (12-44); MEAN CORPUSCULAR HEMOGLOBIN 29 PG (25-34); MEAN CORPUSCULAR HGB CONC 33 G/DL (32-36); MEAN CORPUSCULAR VOLUME 87 FL (80-99); MEAN PLATELET VOLUME 9.5 FL (7.4-10.4); MONOCYTES # (AUTO) 0.4 X 10^3 (0.0-1.0); MONOCYTES % (AUTO) 5 % (0-12); NEUTROPHILS # (AUTO) 7.5 X 10^3 (1.8-7.8); NEUTROPHILS % (AUTO) 82 % (42-75); PLATELET COUNT 417 10^3/uL (130-400); RED CELL DISTRIBUTION WIDTH 13.4 % (10.0-14.5); WHITE BLOOD COUNT 9.3 10^3/uL (4.3-11.0)
[2019-12-17 14:39] LABS: ALBUMIN 4.1 GM/DL (3.2-4.5); BILIRUBIN,TOTAL 0.4 MG/DL (0.1-1.0); CALCIUM 9.6 MG/DL (8.5-10.1); CREATININE SERUM 1.09 MG/DL (0.60-1.30)
== END ==
LOC: EDSTATUS 07-29 14:59 → ONC 13:52
PROVIDERS: ATTEND Internal Medicine Hematology & Oncology
DX: C50.111 Malignant neoplasm of central portion of right female breast (principal); E03.9 Hypothyroidism, unspecified; E11.42 Type 2 diabetes mellitus with diabetic polyneuropathy; I10 Essential (primary) hypertension; E78.00 Pure hypercholesterolemia, unspecified; K29.70 Gastritis, unspecified, without bleeding; Z17.1 Estrogen receptor negative status [ER-]; Z79.899 Other long term (current) drug therapy; Z92.21 Personal history of antineoplastic chemotherapy; Z92.3 Personal history of irradiation
CPT/HCPCS: 80053; 85025; 99213

== ENCOUNTER → 2020-06-07 | Outpatient (CLI) | payer MEDICARE, OTHER ==
[2020-06-07 14:53] LABS: BILIRUBIN,TOTAL 0.4 MG/DL (0.1-1.0); CALCIUM 9.1 MG/DL (8.5-10.1); CREATININE SERUM 1.13 MG/DL (0.60-1.30); POTASSIUM 4.4 MMOL/L (3.6-5.0); TOTAL PROTEIN 6.9 GM/DL (6.4-8.2)
[2020-06-07 14:56] LABS: BASOPHILS % (AUTO) 0 % (0-10); EOSINOPHILS % (AUTO) 1 % (0-10); HEMATOCRIT 37 % (35-52); LYMPHOCYTES # (AUTO) 1.3 10^3/uL (1.0-4.0); LYMPHOCYTES % (AUTO) 18 % (12-44); MEAN CORPUSCULAR HEMOGLOBIN 29 pg (25-34); MEAN CORPUSCULAR HGB CONC 32 g/dL (32-36); MEAN CORPUSCULAR VOLUME 89 fL (80-99); MEAN PLATELET VOLUME 9.9 fL (9.0-12.2); MONOCYTES # (AUTO) 0.3 10^3/uL (0.0-1.0); MONOCYTES % (AUTO) 5 % (0-12); NEUTROPHILS # (AUTO) 5.5 10^3/uL (1.8-7.8); NEUTROPHILS % (AUTO) 75 % (42-75); PLATELET COUNT 382 10^3/uL (130-400); WHITE BLOOD COUNT 7.4 10^3/uL (4.3-11.0)
== END ==
LOC: ONC 14:22
PROVIDERS: ATTEND Internal Medicine Hematology & Oncology
DX: C50.111 Malignant neoplasm of central portion of right female breast (principal)
CPT/HCPCS: 80053; 85025; G0463; 99213

== ENCOUNTER → 2020-08-16 | Outpatient (CLI) | payer MEDICARE, OTHER ==
--- NOTE | 2020-08-16 13:29 | Diagnostic Imaging Report ---
EXAMINATION: Diagnostic left mammogram with CAD. INDICATION: Breast CA. COMPARISON: This study was compared to the prior exams of 08/15/2019, 08/07/2018, and 08/02/2017. FINDINGS: By history, the patient has had mastectomy on the right for carcinoma in 2014. She now complains of a soft tissue fullness in the superior aspect of the breast. A marker was placed over the area of concern but there is no discrete abnormality evident in this area. Even so, I would recommend that ultrasound be performed for further study. There are scattered fibroglandular densities in the left breast which could obscure a lesion. Overall, there does not appear to have been any significant change when compared to the prior study. There is no primary or secondary sign of malignancy noted. IMPRESSION: There is no evidence for malignancy; however, ultrasound of the left breast would be recommended for further evaluation. ACR BI-RADS Category 0: Incomplete. (Needs additional imaging evaluation). Result letter will be mailed to the patient. Note: At least 10% of breast cancer is not imaged by mammography. Dictated by: Dictated on workstation # [id number]
--- NOTE | 2020-08-16 15:04 | Diagnostic Imaging Report ---
EXAMINATION: Ultrasound left breast limited. INDICATION: Left breast fullness. FINDINGS: Reportedly, the patient has a soft tissue fullness in the superior aspect of the left breast. The diagnostic mammogram performed prior to this study failed to show any abnormality in this region. On this study, there is no discrete solid or cystic mass evident. There is no sign of an abscess either. IMPRESSION: There is no abnormality in the left breast to correspond to the patient's area of fullness. Clinical followup is recommended. ACR BI-RADS Category 1: Negative. Dictated by: Dictated on workstation # [id number]
== END ==
LOC: RAD 13:15
PROVIDERS: ATTEND Nurse Practitioner Adult Health
DX: C50.111 Malignant neoplasm of central portion of right female breast (principal)
CPT/HCPCS: 76642; 77065; G0279

== ENCOUNTER 2020-11-19 18:41 | Emergency (ER) | payer MEDICARE, OTHER ==
[2020-11-19 18:48] VITALS: BP 164/80
--- NOTE | 2020-11-19 18:52 | ED EENT ---
History of Present Illness General Chief Complaint: Foreign Body Stated Complaint: LT EAR PROBLEMS History of Present Illness Date Seen by Provider: Nov 19, 2020 Time Seen by Provider: 18:47 Initial Comments 85-year-old female presents with foreign body in her left ear. Patient reports that she has portion of her hearing aid that came off into her ear canal. Madison cabrera has some moderate discomfort. Happened earlier today. No other systemic complaints. Allergies and Home Medications Allergies Coded Allergies: atorvastatin (Verified Allergy, Unknown, 05/06/15) ibuprofen (Verified Allergy, Unknown, 05/06/15) loratadine (Verified Allergy, Unknown, 05/06/15) morphine (Verified Allergy, Unknown, 05/06/15) ofloxacin (Verified Allergy, Unknown, 05/06/15) Home Medications Gabapentin 300 Mg Capsule, 300 MG PO TID, (Reported) Glipizide 10 Mg Tablet, 10 MG PO HS, (Reported) Levothyroxine Sodium 100 Mcg Tablet, 100 MCG PO DAILY, (Reported) Lisinopril 10 Mg Tablet, 5 MG PO DAILY, (Reported) TAKE 1/2 OF (10MG) TAB Metformin Hcl 1,000 Mg Tablet, 1,000 MG PO HS, (Reported) Penicillin V Potassium 500 Mg Tablet, 500 MG PO TID Prescribed by: JOHN BROWN on 10/10/191846 Sitagliptin Phosphate 100 Mg Tablet, 100 MG PO HS, (Reported) Tramadol HCl 50 Mg Tablet, 50 MG PO Q12H PRN for PAIN-MILD TO MODERATE Prescribed by: ROSEANNA ARIAS on 01/31/17 1109 Tramadol HCl 50 Mg Tablet, 50 MG PO Q6H Prescribed by: JOHN BROWN on 10/10/191846 Patient Home Medication List Home Medication List Reviewed: Yes Review of Systems Review of Systems Constitutional: no symptoms reported Eyes: No Symptoms Reported Ears: See HPI Nose: no symptoms reported Mouth: no symptoms reported Throat: no symptoms reported Respiratory: no symptoms reported Cardiovascular: no symptoms reported Gastrointestinal: no symptoms reported Past Oicgjsg-Kqngxo-Txitso Hx Past Med/Social Hx: Reviewed Nursing Past Med/Soc Hx Patient Social History 2nd Hand Smoke Exposure: No Recent Hopitalizations: No Immunizations Up To Date Date of Pneumonia Vaccine: Feb 15, 2010 Seasonal Allergies Seasonal Allergies: Yes Past Medical History Surgeries: Yes (RIGHT BREAST LUMPECTOMY, BACK SX, RIGHT BREAST MASTECTOMY) Gallbladder, Hysterectomy Respiratory: No Cardiac: Yes Heart Murmur, Hypertension Neurological: No Reproductive Disorders: No Genitourinary: Yes UTI-Chronic Gastrointestinal: No Musculoskeletal: Yes Arthritis, Chronic Back Pain Endocrine: Yes Hypothyroidsim, Diabetes, Non-Insulin dep Hearing Impairment: Hard of Hearing Cancer: Yes Breast Psychosocial: No Integumentary: No Blood Disorders: No Physical Exam Vital Signs Vital Signs - First Documented 11/19/20 18:48 Temp 36.3 Pulse 91 Resp 16 B/P (MAP) 164/80 (108) Pulse Ox 99 Height, Weight, BMI Height: 5'0.00" Weight: 144lbs. 0.0oz. 65.762560uz; 27.00 BMI Method: General Appearance: no apparent distress Ears: left ear foreign body (Small plastic portion of hearing aid hearing aid) Cardiovascular: normal peripheral pulses, no edema Respiratory: no respiratory distress, no accessory muscle use Neurologic/Psychiatric: alert, oriented x 3 Skin: normal color, warm/dry Procedures/Interventions Ear : Ear Location: Left Foreign Body Removal: FB in the Ear Canal Progress/Conclusion Small soft plastic ear piece of hearing aid was removed with alligator clamp. Patient tolerated well with no immediate complications, recheck with otoscope following removal shows canal with no damage and no further foreign bodies, normal TM Progress/Results/Core Measures Results/Orders Vital Signs/I&O 11/19/20 18:48 Temp 36.3 Pulse 91 Resp 16 B/P (MAP) 164/80 (108) Pulse Ox 99 Departure Impression Primary Impression: Foreign body in ear Qualified Codes: T16.2XXA - Foreign body in left ear, initial encounter Disposition: 01 HOME, SELF-CARE Condition: Stable Departure-Patient Inst. Referrals: SELF,JUANITA SALMON (PCP/Family) Primary Care Physician Add. Discharge Instructions: All discharge instructions reviewed with patient and/or family. Voiced understanding. FLOYD QUINTANILLA DO Nov 19, 2020 18:52
== END 2020-11-19 18:56 | disposition home or self-care (01) ==
LOC: EDUNIT# 18:41 → ER FS 18:42
DX: T16.2XXA Foreign body in left ear, initial encounter (principal); I10 Essential (primary) hypertension; E11.9 Type 2 diabetes mellitus without complications; E03.9 Hypothyroidism, unspecified; Z88.6 Allergy status to analgesic agent; Z88.5 Allergy status to narcotic agent; Z88.1 Allergy status to other antibiotic agents; Z88.8 Allergy status to other drugs, medicaments and biological substances; Z79.890 Hormone replacement therapy; Z79.84 Long term (current) use of oral hypoglycemic drugs
CPT/HCPCS: 99282

== ENCOUNTER → 2020-12-06 | Outpatient (CLI) | payer MEDICARE, OTHER ==
[2020-12-06 13:34] LABS: BASOPHILS % (AUTO) 0 % (0-10); EOSINOPHILS # (AUTO) 0.1 10^3/uL (0.0-0.3); EOSINOPHILS % (AUTO) 1 % (0-10); HEMATOCRIT 39 % (35-52); HEMOGLOBIN 12.3 g/dL (11.5-16.0); LYMPHOCYTES # (AUTO) 1.6 10^3/uL (1.0-4.0); LYMPHOCYTES % (AUTO) 19 % (12-44); MEAN CORPUSCULAR HEMOGLOBIN 28 pg (25-34); MEAN CORPUSCULAR HGB CONC 32 g/dL (32-36); MEAN CORPUSCULAR VOLUME 89 fL (80-99); MEAN PLATELET VOLUME 9.6 fL (9.0-12.2); MONOCYTES # (AUTO) 0.3 10^3/uL (0.0-1.0); MONOCYTES % (AUTO) 4 % (0-12); NEUTROPHILS # (AUTO) 6.2 10^3/uL (1.8-7.8); NEUTROPHILS % (AUTO) 75 % (42-75); PLATELET COUNT 373 10^3/uL (130-400); WHITE BLOOD COUNT 8.2 10^3/uL (4.3-11.0)
[2020-12-06 13:53] LABS: BILIRUBIN,TOTAL 0.5 MG/DL (0.1-1.0); CALCIUM 9.1 MG/DL (8.5-10.1); CREATININE SERUM 1.23 MG/DL (0.60-1.30); POTASSIUM 4.2 MMOL/L (3.6-5.0); TOTAL PROTEIN 6.9 GM/DL (6.4-8.2)
== END ==
LOC: ONC 13:19
PROVIDERS: ATTEND Internal Medicine Hematology & Oncology
DX: C50.119 Malignant neoplasm of central portion of unspecified female breast (principal); I65.23 Occlusion and stenosis of bilateral carotid arteries; Z92.21 Personal history of antineoplastic chemotherapy
CPT/HCPCS: 80053; 85025; G0463; 99213

== ENCOUNTER 2021-12-24 08:11 | Inpatient (IN) | payer MEDICARE, OTHER ==
[~2021-12-24] VITALS: Ht 149.8 cm; Wt 138.2 kg
[2021-12-24 08:31] LABS: BASOPHILS % (AUTO) 0 % (0-10); EOSINOPHILS % (AUTO) 0 % (0-10); HEMATOCRIT 37 % (35-52); HEMOGLOBIN 12.6 g/dL (11.5-16.0); LYMPHOCYTES # (AUTO) 0.7 10^3/uL (1.0-4.0); LYMPHOCYTES % (AUTO) 6 % (12-44); MEAN CORPUSCULAR HEMOGLOBIN 28 pg (25-34); MEAN CORPUSCULAR HGB CONC 34 g/dL (32-36); MEAN CORPUSCULAR VOLUME 83 fL (80-99); MEAN PLATELET VOLUME 9.3 fL (9.0-12.2); MONOCYTES # (AUTO) 0.7 10^3/uL (0.0-1.0); MONOCYTES % (AUTO) 5 % (0-12); NEUTROPHILS # (AUTO) 10.9 10^3/uL (1.8-7.8); NEUTROPHILS % (AUTO) 88 % (42-75); PLATELET COUNT 423 10^3/uL (130-400); WHITE BLOOD COUNT 12.4 10^3/uL (4.3-11.0)
[2021-12-24 08:32] LABS: CLARITY,URINE CLEAR; COLOR,URINE YELLOW; GLUCOSE, URINE (UA) TRACE (NEGATIVE); KETONES,URINE 1+ (NEGATIVE); LEUKOCYTE ESTERASE ,URINE TRACE (NEGATIVE); NITRITE,URINE NEGATIVE (NEGATIVE); PROTEIN,URINE 2+ (NEGATIVE)
[2021-12-24] MEDS ORDERED: NS IV 1000 ML 1,000 ML IV STA (08:34)
[2021-12-24 08:36] LABS: BACTERIA,URINE MODERATE /HPF; BILIRUBIN,URINE 1+ (NEGATIVE); GRANULAR CASTS,URINE 0-2 /LPF
--- NOTE | 2021-12-24 08:37 | ED General ---
General Chief Complaint: Dizziness/Syncope Stated Complaint: WEAKNESS/DIZZINESS Source of Information: Patient, Spouse (SARA MOSLEY MD) History of Present Illness Date Seen by Provider: December 24, 2021 Time Seen by Provider: 08:14 Initial Comments 86-year-old female presenting with complaints of dizziness and weakness. She states that for over 2 weeks she has been getting more dizzy and weak especially with standing or changing positions. She has some nausea when she gets dizzy as well. She has had some dry heaves and retching but no actual vomiting. She was having diarrhea up until 3 days ago after she took a single dose of Imodium which helped cause her stools to be more formed. She denies any pain or burning with urination but has had decreased urine output. She has had decreased appetite and oral intake in the last few weeks. Her primary care provider, Dr. Mascorro, has been out of the office so she has not seen him and her appointments have all been canceled and/or rescheduled several weeks out. Also the other day she was trying to put a box up on a shelf and it fell hitting her on the face. She denies having a loss of consciousness or change in her vision. She does occasionally have some pain behind her ears. She denies fever or chills. She does have some cough in the last few days but it is nonproductive. Just sitting on the bed and she does not feel bad and is not having dizziness. However, sitting up on the bed and moving makes her have dizziness. This gets worse when she tries to stand and walk. Timing/Duration: Getting Worse (for over 2 weeks) Severity: Severe Modifying Factors: worse with Movement (walking and activity makes it worse); improves with Rest Associated Systoms: Chest Pain (tightness in chest and shortness of breath with walking and exertion), Cough (in last few days, it is non-productive); No Diaphoresis, No Fever/Chills, No Headaches; Loss of Appetite, Malaise, Nausea/Vomiting (wretching and dry heaves with nausea but no actual emesis); No Rash, No Seizure; Shortness of Air (with exertion she gets short of breath and has tightness in chest along with dizziness); No Syncope; Weakness (generalized) (SARA MOSLEY MD) Initial Comments Agree with H & P (ADAM HI MD) Allergies and Home Medications Allergies Coded Allergies: atorvastatin (Verified Allergy, Unknown, 05/06/15) ibuprofen (Verified Allergy, Unknown, 05/06/15) loratadine (Verified Allergy, Unknown, 05/06/15) morphine (Verified Allergy, Unknown, 05/06/15) ofloxacin (Verified Allergy, Unknown, 05/06/15) Patient Home Medication List Home Medication List Reviewed: Yes (SARA MOSLEY MD) Gabapentin (Gabapentin) 300 Mg/6 Ml (6 Ml) Solution, 300 MG PO DAILY, (Reported) Entered as Reported by: JIMMY DUNCAN on 12/24/211442 Last Action: New Order Gabapentin (Neurontin) 300 Mg Capsule, 300 MG PO TID, (Reported) Entered as Reported by: JIMMY DUNCAN on 12/24/211442 Last Action: New Order Levothyroxine Sodium (Levothyroxine) 125 Mcg Capsule, 125 MCG PO DAILY, (Reported) Entered as Reported by: JIMMY DUNCAN on 12/24/211442 Last Action: New Order Lisinopril (Lisinopril) 10 Mg Tablet, 5 MG PO DAILY, (Reported) Entered as Reported by: KERRI CUEVAS on 02/19/15 1040 Last Action: Reviewed Metformin HCl (Metformin HCl) 1,000 Mg Tablet, 2,000 MG PO DAILY, (Reported) Entered as Reported by: JIMMY DUNCAN on 12/24/211442 Last Action: New Order Pantoprazole Sodium (Pantoprazole Sodium) 40 Mg Tablet.dr, 40 MG PO DAILY, (Reported) Entered as Reported by: JIMMY DUNCAN on 12/24/211442 Last Action: New Order Sucralfate (Sucralfate) 1 Gram Tablet, 3 GM PO TID, (Reported) Entered as Reported by: JIMMY DUNCAN on 12/24/211442 Last Action: New Order [rybelsus] , (Reported) Entered as Reported by: JIMMY DUNCAN on 12/24/211442 Last Action: New Order Discontinued Medications Gabapentin (Gabapentin) 300 Mg Capsule, 300 MG PO TID, (Reported) Discontinued Reason: No Longer Taking Entered as Reported by: JOSELO CARTWRIGHT on 7/13/15 1027 Last Action: Discontinued Glipizide (Glipizide) 10 Mg Tablet, 10 MG PO HS, (Reported) Discontinued Reason: No Longer Taking Entered as Reported by: JOSELO CARTWRIGHT on 02/15/151026 Last Action: Discontinued Levothyroxine Sodium (Levothyroxine 100 Mcg Tab) 100 Mcg Tablet, 100 MCG PO DAILY, (Reported) Discontinued Reason: No Longer Taking Entered as Reported by: JOSELO CARTWRIGHT on 02/15/15 102 Last Action: Discontinued Metformin Hcl (Metformin 1000 Mg) 1,000 Mg Tablet, 1,000 MG PO HS, (Reported) Discontinued Reason: No Longer Taking Entered as Reported by: JOSELO CARTWRIGHT on 02/15/15 102 Last Action: Discontinued Penicillin V Potassium (Penicillin V Potassium) 500 Mg Tablet, 500 MG PO TID Discontinued Reason: No Longer Taking Prescribed by: JOHN BROWN on 10/10/191846 Last Action: Discontinued Sitagliptin Phosphate (Januvia) 100 Mg Tablet, 100 MG PO HS, (Reported) Discontinued Reason: No Longer Taking Entered as Reported by: JOSELO CARTWRIGHT on 02/15/151026 Last Action: Discontinued Tramadol HCl (Tramadol HCl) 50 Mg Tablet, 50 MG PO Q12H PRN for PAIN-MILD TO MODERATE Discontinued Reason: No Longer Taking Prescribed by: ROSEANNA ARIAS on 01/31/17 1109 Last Action: Discontinued Tramadol HCl (Ultram) 50 Mg Tablet, 50 MG PO Q6H Discontinued Reason: No Longer Taking Prescribed by: JOHN BROWN on 10/10/191846 Last Action: Discontinued Review of Systems Review of Systems Constitutional: see HPI EENTM: ear pain (Occasional pain behind her ears), other (Bruising to the left periorbital area from a box hitting her face); No ear discharge, No eye pain, No vision loss, No mouth pain, No epistaxis, No nose congestion, No throat pain Respiratory: see HPI Cardiovascular: see HPI Gastrointestinal: see HPI Genitourinary: decreased output Musculoskeletal: no symptoms reported Skin: No rash Psychiatric/Neurological: See HPI, Weakness (Generalized) (SARA MOSLEY MD) Past Anjcerz-Qjdrdw-Ucsagy Hx Patient Social History Tobacco Use?: No Substance use?: No (SARA MOSLEY MD) Seasonal Allergies Seasonal Allergies: Yes (SARA MOSLEY MD) Past Medical History Surgery/Hospitalization HX: Hypertension, hypothyroidism, hysterectomy, cholecystectomy, Hard of hearing, Breast cancer history with right mastectomy, Osteoarthritis, Recurrent UTIs Surgeries: Yes (RIGHT BREAST LUMPECTOMY, BACK SX, RIGHT BREAST MASTECTOMY) Gallbladder, Hysterectomy Respiratory: No Cardiac: Yes Heart Murmur, Hypertension Neurological: No Reproductive Disorders: No Genitourinary: Yes UTI-Chronic Gastrointestinal: No Musculoskeletal: Yes Arthritis, Chronic Back Pain Endocrine: Yes Hypothyroidsim, Diabetes, Non-Insulin dep Hearing Impairment: Hard of Hearing Cancer: Yes Breast Psychosocial: No Integumentary: No Blood Disorders: No (SARA MOSLEY MD) Physical Exam Vital Signs Vital Signs - First Documented 12/24/21 08:15 Temp 36.5 Pulse 107 Resp 23 B/P (MAP) 143/56 (85) Pulse Ox 97 O2 Delivery Room Air (ADAM HI MD) Vital Signs Capillary Refill : (SARA MOSLEY MD) Height, Weight, BMI Height: 5'0.00" Weight: 144lbs. 0.0oz. [id number]; 27.00 BMI Method: General Appearance: Anxious HEENT: PERRL/EOMI; No TMs Normal (cerumen present in bilateral canals without impaction. Unable to visualize TM due to cerumen), No Moist Mucous Membranes (slightly dry mucous membranes); Other (Negative ventura sign, negative raccoon sign, no CSF otorrhea, no CSF rhinorrhea. There is mild bruising and an abrasion to the left side of the nose and infraorbital area) Neck: Full Range of Motion, Normal Inspection, Non Tender Respiratory: Chest Non Tender, Lungs Clear, No Accessory Muscle Use, No Respiratory Distress, Decreased Breath Sounds Cardiovascular: Normal Peripheral Pulses, Tachycardia Gastrointestinal: Normal Bowel Sounds, No Pulsatile Mass, Non Tender, Soft; No Distended, No Guarding, No Rebound Rectal: Deferred Extremity: Normal Capillary Refill, No Calf Tenderness Neurologic/Psychiatric: Alert, Oriented x3, sales expert II-XII Norm as Tested Skin: Warm/Dry (SARA MOSLEY MD) Focused Exam Lactate Level 12/24/21 09:00: Lactic Acid Level 1.72 (ADAM HI MD) Lactic Acid Level Laboratory Tests Test 12/24/21 09:00 Lactic Acid Level 1.72 MMOL/L (0.50-2.00) (ADAM HI MD) Progress/Results/Core Measures Suspected Sepsis SIRS Temperature: Pulse: Respiratory Rate: Laboratory Tests 12/24/21 08:25: White Blood Count 12.4H Blood Pressure / Mean: 12/24/21 09:00: Lactic Acid Level 1.72 Laboratory Tests 12/24/21 08:25: INR Comment 1.0, Platelet Count 423H, Total Bilirubin 0.9 (SARA MOSLEY MD) Results/Orders Lab Results Laboratory Tests Test 12/24/21 08:20 12/24/21 08:25 12/24/21 09:00 Range/Units Urine Color YELLOW Urine Clarity CLEAR Urine pH 6.0 5-9 Urine Specific [place] 1.025 H 1.016-1.022 Urine Protein 2+ H NEGATIVE Urine Glucose (UA) TRACE H NEGATIVE Urine Ketones 1+ H NEGATIVE Urine Nitrite NEGATIVE NEGATIVE Urine Bilirubin 1+ H NEGATIVE Urine Urobilinogen 1.0 < = 1.0 MG/DL Urine Leukocyte Esterase TRACE H NEGATIVE Urine RBC (Auto) TRACE-I H NEGATIVE Urine RBC 2-5 H /HPF Urine WBC 5-10 H /HPF Urine Squamous Epithelial Cells 5-10 /HPF Urine Crystals NONE /LPF Urine Bacteria MODERATE H /HPF Urine Casts PRESENT /LPF Urine Granular Casts 0-2 H /LPF Urine Mucus SMALL H /LPF Urine Culture Indicated YES White Blood Count 12.4 H 4.3-11.0 10^3/uL Red Blood Count 4.46 3.80-5.11 10^6/uL Hemoglobin 12.6 11.5-16.0 g/dL Hematocrit 37 35-52 % Mean Corpuscular Volume 83 80-99 fL Mean Corpuscular Hemoglobin 28 25-34 pg Mean Corpuscular Hemoglobin Concent 34 32-36 g/dL Red Cell Distribution Width 12.7 10.0-14.5 % Platelet Count 423 H 130-400 10^3/uL Mean Platelet Volume 9.3 9.0-12.2 fL Immature Granulocyte % (Auto) 1 % Neutrophils (%) (Auto) 88 H 42-75 % Lymphocytes (%) (Auto) 6 L 12-44 % Monocytes (%) (Auto) 5 0-12 % Eosinophils (%) (Auto) 0 0-10 % Basophils (%) (Auto) 0 0-10 % Neutrophils # (Auto) 10.9 H 1.8-7.8 10^3/uL Lymphocytes # (Auto) 0.7 L 1.0-4.0 10^3/uL Monocytes # (Auto) 0.7 0.0-1.0 10^3/uL Eosinophils # (Auto) 0.0 0.0-0.3 10^3/uL Basophils # (Auto) 0.0 0.0-0.1 10^3/uL Immature Granulocyte # (Auto) 0.1 0.0-0.1 10^3/uL Neutrophils % (Manual) 92 % Lymphocytes % (Manual) 7 % Monocytes % (Manual) 1 % Prothrombin Time 13.2 12.2-14.7 SEC INR Comment 1.0 0.8-1.4 Activated Partial Thromboplast Time 33 24-35 SEC Sodium Level 128 L 135-145 MMOL/L Potassium Level 4.1 3.6-5.0 MMOL/L Chloride Level 92 L 98-107 MMOL/L Carbon Dioxide Level 20 L 21-32 MMOL/L Anion Gap 16 H 5-14 MMOL/L Blood Urea Nitrogen 14 7-18 MG/DL Creatinine 1.01 0.60-1.30 MG/DL Estimat Glomerular Filtration Rate 54 BUN/Creatinine Ratio 14 Glucose Level 219 H 70-105 MG/DL Calcium Level 9.4 8.5-10.1 MG/DL Corrected Calcium 9.6 8.5-10.1 MG/DL Magnesium Level 1.4 L 1.6-2.4 MG/DL Total Bilirubin 0.9 0.1-1.0 MG/DL Aspartate Amino Transf (AST/SGOT) 14 5-34 U/L Alanine Aminotransferase (ALT/SGPT) 10 0-55 U/L Alkaline Phosphatase 99 40-136 U/L Myoglobin 56.9 10.0-92.0 NG/ML Troponin I < 0.30 <0.30 NG/ML Pro-B-Type Natriuretic Peptide 893.4 H <75.0 PG/ML Total Protein 8.0 6.4-8.2 GM/DL Albumin 3.8 3.2-4.5 GM/DL Lipase 25 8-78 U/L Lactic Acid Level 1.72 0.50-2.00 MMOL/L (ADAM HI MD) My Orders Orders - ADAM HI MD Magnesium 1 Gm/100 Ml Ivpb (Magnesium Duran (12/24/21 09:44) Azithromycin Injection (Zithromax Inject (12/24/21 09:45) Covid 19 Inhouse Test (12/24/21 09:53) Influenza A And B Antigens (12/24/21 09:53) Influenza A And B By Pcr (12/24/21 09:53) (ADAM IH MD) Vital Signs/I&O 12/24/21 08:15 Temp 36.5 Pulse 107 Resp 23 B/P (MAP) 143/56 (85) Pulse Ox 97 O2 Delivery Room Air (ADAM HI MD) Vital Signs/I&O Capillary Refill : (SARA MOSLEY MD) Progress Note #1: Progress Note Obtain urinalysis, basic labs, cardiac enzymes, electrocardiogram, chest x-ray since she had a cough and shortness of breath with exertion, CT of her head, face, cervical spine. Since she had dizziness with standing and changing position as well as a box hitting her in the face will look for signs of intracranial hemorrhage or stroke as well as facial fractures or sinusitis. Evaluate her cervical spine for acute fracture that might be contributing to her dizziness with standing and moving as well. The electrocardiogram would look for arrhythmias or acute ischemia. Cardiac telemetry monitoring to evaluate for possible ectopy or cardiac arrhythmia. Urinalysis to look for UTI or dehydration. EKG and cardiac enzymes to look for signs of myocardial infarction or heart failure as a source of her dizziness and shortness of breath with exertion. Give normal saline 1 L IV fluid for hydration to help with her slightly elevated heart rate and dizziness with changing position. Progress Note #2: Time: 08:51 Progress Note Electrocardiogram shows sinus rhythm without ST elevation. She does have findings for UTI and has an elevated white blood cell count so blood cultures and lactic acid were added on. Chemistry shows some hyponatremia with a sodium of 128. From a year ago this is down from 137. Her renal function looked okay. Her magnesium was low at 1.4. Her cardiac enzymes were still pending. Her imaging was still pending as well. Will pass care to Dr. Hi at 0900 to follow up on these pending results and determine disposition. (SARA MOSLEY MD) Progress Note : Progress Note SIGN OUT FROM NIGHT PHYSICIAN 1. GENERALIZED WEAKNESS DUE TO UTI with HEMATURIA & RIGHT SIDED PNEUMONIA: - CXR: right upper and middle lobe pneumonia - UA is positive for LE+, WBC, RBC, and bacteria - WBC is 12.5 with a left shift - Lactic acid normal - Ceftriaxone 1gm iv & Azithro 500mg iv STAT - Will admit to med surg, accepted by Dr Chowdary 2. HYPONATREMIA & HYPOMAGNESEMIA: - s. Na is 128 and s. Mg is 1.4 - NS IVF bolus 1L - Magnesium 2gm iv STAT (ADAM HI MD) ECG Initial ECG Impression Date: December 24, 2021 Initial ECG Impression Time: 08:36 Initial ECG Rate: 99 Initial ECG Rhythm: Normal Sinus Initial ECG Comparisson: Unchanged Comment Normal sinus rhythm with a heart rate of 99 bpm. LA interval [address] elevation. QT interval 324 ms with a QTc interval 380 ms. Overall appears similar to prior tracings in the system. She does have some artifact on the tracing. (SARA MOSLEY MD) Diagnostic Imaging Diagonstic Imaging: CT Plain Films/CT/US/NM/MRI: facial bones, c-spine, head Comments [facility]. [place], [place] NAME: EDSON ZABALA [facility] REC#: [id number] PT STATUS: REG ER : 1935 PHYSICIAN: SARA MOSLEY MD ADMIT DATE: 12/24/21/ER FS Signed Date of Exam:12/24/21 CT HEAD/FACE/CERVICAL WO PROCEDURE: CT head, face, and cervical spine without contrast. TECHNIQUE: Multiple contiguous axial images were obtained through the head, neck, and facial bones without the use of intravenous contrast. Sagittal and coronal reformations through the cervical spine and facial bones were also performed. Auto Exposure Controls were utilized during the CT exam to meet ALARA standards for radiation dose reduction. Date: December 24, 2021. Indication: 86-year-old female, dizziness and weakness. Fall. Head, face, and neck pain. Comparison: None. Findings: There is no identified skull fracture. There is mild proportional prominence of the ventricles and additional CSF spaces consistent with mild cerebral volume loss. There is no identified abnormal extra-axial fluid collection. There is no evidence of acute intracranial hemorrhage. There is no mass effect or midline shift. 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 The temporomandibular joints are normally aligned. There is no identified mandibular fracture. There is no identified nasal bone fracture. There is no identified acute maxillofacial bone fracture. The frontal sinuses are hypoplastic. There is mucosal thickening of the maxillary sinuses. The globes are grossly intact. There is no retro-orbital hematoma. There is no identified facet joint subluxation or dislocation. There are multilevel facet degenerative changes of the cervical spine. There is no asymmetric widening of the cervical disc spaces. There is no prominent prevertebral soft tissue swelling. There is arthritis at the C1-C2 articulation. The cervical disc heights are well preserved. CT is limited for assessment of disc pathology as well as additional non-bony causes of pathology in the spinal canal. There is no identified acute fracture of the cervical spine. There are bilateral carotid vascular calcifications. Impression: 1. No identified acute intracranial abnormality. 2. No identified acute maxillofacial bone fracture. 3. Severe bilateral temporomandibular arthritis. An inflammatory arthropathy would be in the differential diagnosis. 4. No identified acute fracture of the cervical spine. 5. Multilevel predominantly facet degenerative changes of the cervical spine. Dictated by: Dictated on workstation # [id number] Dict: 12/24/21 0905 Trans: 12/24/21 1018 [facility] [id number] Interpreted by: GRACE BHAKTA MD Electronically signed by: GRACE BHAKTA MD 12/24/21 1018 Diagonstic Imaging: Xray Plain Films/CT/US/NM/MRI: chest Comments [facility], [place] NAME: [facility] REC#: [id number] PT STATUS: REG ER : 1935 PHYSICIAN: SARA MOSLEY MD ADMIT DATE: 12/24/21/ER FS Signed Date of Exam:12/24/21 CHEST 1 VIEW AP/PA ONLY EXAMINATION: Chest radiograph, portable AP view. DATE: 12/24/2021 8:58 AM INDICATION: 86-year-old female, dizziness and weakness. COMPARISON: April 30, 2015. FINDINGS: Heart size and mediastinal contours are unchanged. There is no identified pneumothorax. There is eventration of both hemidiaphragms. There is patchy multifocal airspace consolidation in the right mid to upper lung which appears to be an interval change. Some of the areas of opacification appear fairly nodular. IMPRESSION: 1. Nonspecific patchy multifocal airspace consolidation in the right mid to upper lung which appear somewhat nodular in appearance. This could relate to pneumonia or other alveolar consolidative process. Particularly if there is little clinical concern for pneumonia, further evaluation with CT chest is recommended, especially given some of the nodular appearance of the consolidation. Dictated by: Dictated on workstation # [id number] Dict: 12/24/21 0858 Trans: 12/24/2121 [facility] [id number] Interpreted by: GRACE BHAKTA MD Electronically signed by: GRACE BHAKTA MD 12/24/21920 (SARA MOSLEY MD) Departure Communication (Admissions) Time/Spoke to Admitting Phy: 10:00 see below (ADAM HI MD) Impression Primary Impression: Cystitis without hematuria Additional Impressions: Hyponatremia Generalized weakness Hypomagnesemia Pneumonia involving right lung Qualified Codes: J18.9 - Pneumonia, unspecified organism Disposition: 30 STILL A PATIENT Condition: Stable Admissions Decision to Admit Reason: Admit from ER (General) Decision to Admit/Date: December 24, 2021 Time/Decision to Admit Time: 09:50 (ADAM HI MD) Transfer Transfer Reason: Exceeds level of care Time Spoke to Accepting Phy: 10:00 Transfer Progress Notes Discussed with Dr Chowdary and accepted for admission Transfer Facility: [facility] Method of Transfer: EMS (ADAM HI MD) Departure-Patient Inst. Referrals: JUANITA MASCORRO MD (PCP/Family) Primary Care Physician SARA MOSLEY MD December 24, 2021 08:37 ADAM HI MD December 24, 2021 10:04
[2021-12-24] MEDS ORDERED: cefTRIAXone 1 GM PRE-MIX 50 ML IV STA (08:45)
[2021-12-24 08:50] LABS: PROTHROMBIN TIME PATIENT 13.2 SEC (12.2-14.7)
[2021-12-24 09:03] LABS: POTASSIUM 4.1 MMOL/L (3.6-5.0)
[2021-12-24 09:04] LABS: ALBUMIN 3.8 GM/DL (3.2-4.5); BILIRUBIN,TOTAL 0.9 MG/DL (0.1-1.0); CALCIUM 9.4 MG/DL (8.5-10.1); CREATININE SERUM 1.01 MG/DL (0.60-1.30); MAGNESIUM 1.4 MG/DL (1.6-2.4)
[2021-12-24 09:14] LABS: LYMPHOCYTES % (MANUAL) 7 %; MONOCYTES % (MANUAL) 1 %; NEUTROPHILS % (MANUAL) 92 %
--- NOTE | 2021-12-24 09:18 | Diagnostic Imaging Report ---
EXAMINATION: Chest radiograph, portable AP view. DATE: 12/24/2021 8:58 AM INDICATION: 86-year-old female, dizziness and weakness. COMPARISON: April 30, 2015. FINDINGS: Heart size and mediastinal contours are unchanged. There is no identified pneumothorax. There is eventration of both hemidiaphragms. There is patchy multifocal airspace consolidation in the right mid to upper lung which appears to be an interval change. Some of the areas of opacification appear fairly nodular. IMPRESSION: 1. Nonspecific patchy multifocal airspace consolidation in the right mid to upper lung which appear somewhat nodular in appearance. This could relate to pneumonia or other alveolar consolidative process. Particularly if there is little clinical concern for pneumonia, further evaluation with CT chest is recommended, especially given some of the nodular appearance of the consolidation. Dictated by: Dictated on workstation # [id number]
[2021-12-24] MEDS ORDERED: MAGNESIUM 1 GM/100 ML IVPB 100 ML IV STA (09:44)
--- NOTE | 2021-12-24 09:48 | Diagnostic Imaging Report ---
PROCEDURE: CT head, face, and cervical spine without contrast. TECHNIQUE: Multiple contiguous axial images were obtained through the head, neck, and facial bones without the use of intravenous contrast. Sagittal and coronal reformations through the cervical spine and facial bones were also performed. Auto Exposure Controls were utilized during the CT exam to meet ALARA standards for radiation dose reduction. Date: December 24, 2021. Indication: 86-year-old female, dizziness and weakness. Fall. Head, face, and neck pain. Comparison: None. Findings: There is no identified skull fracture. There is mild proportional prominence of the ventricles and additional CSF spaces consistent with mild cerebral volume loss. There is no identified abnormal extra-axial fluid collection. There is no evidence of acute intracranial hemorrhage. There is no mass effect or midline shift. 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 The temporomandibular joints are normally aligned. There is no identified mandibular fracture. There is no identified nasal bone fracture. There is no identified acute maxillofacial bone fracture. The frontal sinuses are hypoplastic. There is mucosal thickening of the maxillary sinuses. The globes are grossly intact. There is no retro-orbital hematoma. There is no identified facet joint subluxation or dislocation. There are multilevel facet degenerative changes of the cervical spine. There is no asymmetric widening of the cervical disc spaces. There is no prominent prevertebral soft tissue swelling. There is arthritis at the C1-C2 articulation. The cervical disc heights are well preserved. CT is limited for assessment of disc pathology as well as additional non-bony causes of pathology in the spinal canal. There is no identified acute fracture of the cervical spine. There are bilateral carotid vascular calcifications. Impression: 1. No identified acute intracranial abnormality. 2. No identified acute maxillofacial bone fracture. 3. Severe bilateral temporomandibular arthritis. An inflammatory arthropathy would be in the differential diagnosis. 4. No identified acute fracture of the cervical spine. 5. Multilevel predominantly facet degenerative changes of the cervical spine. Dictated by: Dictated on workstation # [id number]
[2021-12-24] MEDS ORDERED: RT-ALBUTEROL/IPRATROPIUM 3 ML (DUONEB) VIAL IH PRN (13:00)
[2021-12-24] MEDS: AZITHROMYCIN INJECTION 500 MG in NS (IVPB) 250 ML IV ONE ×2 (13:34→18:42)
[2021-12-24] MEDS: NS IV 1000 ML 1,000 ML IV SCH ×2 (13:35→20:01)
[2021-12-24] MEDS: AZITHROMYCIN 500 MG/NS 250 ML IVPB IV SCH ×2 (13:37)
[2021-12-24] MEDS ORDERED: SUCR1TAB PO (14:43)
[2021-12-24] MEDS ORDERED: RYBELSUS (14:43)
[2021-12-24] MEDS ORDERED: LEVO125C4 PO (14:43)
[2021-12-24] MEDS ORDERED: METF-399 PO (14:43)
[2021-12-24] MEDS ORDERED: PANT40TA52 PO (14:43)
[2021-12-24] MEDS ORDERED: GABA300C PO (14:43)
[2021-12-24] MEDS ORDERED: GABA300S2 PO (14:43)
[2021-12-24 15:07] VITALS: BP 165/68
[2021-12-24 15:30] VITALS: BP 165/68
[2021-12-24 16:59] LABS: POTASSIUM 3.6 MMOL/L (3.6-5.0)
[2021-12-24 17:00] LABS: CALCIUM 8.7 MG/DL (8.5-10.1)
[2021-12-24 17:05] LABS: CREATININE SERUM 0.8 MG/DL (0.60-1.30)
[2021-12-24] MEDS ORDERED: ONDANSETRON 4 MG/2 ML (SDV) Z0FRAN IVP PRN (17:30)
[2021-12-24] MEDS ORDERED: ONDANSETRON 4 MG/2 ML (SDV) Z0FRAN ONE (17:35)
[2021-12-24 19:01] VITALS: BP 149/66
[2021-12-24] MEDS: RT-ALBUTEROL/IPRATROPIUM 3 ML (DUONEB) VIAL INH SCH (20:30)
[2021-12-24] MEDS: inSUlin ASPART (NovoLOG) 1 UNIT/0.01 ML (CHARGE PER UNIT) SC SCH (20:58)
[2021-12-25] VITALS (7 sets, daily range): BP systolic 131–163; BP diastolic 63–77
[2021-12-25 00:24] LABS: POTASSIUM 3.4 MMOL/L (3.6-5.0)
[2021-12-25 00:25] LABS: CALCIUM 8.1 MG/DL (8.5-10.1)
[2021-12-25 00:29] LABS: CREATININE SERUM 0.79 MG/DL (0.60-1.30)
[2021-12-25] MEDS: NS IV 1000 ML 1,000 ML IV SCH ×3 (02:55→17:12)
[2021-12-25 05:41] LABS: BASOPHILS % (AUTO) 0 % (0-10); EOSINOPHILS % (AUTO) 0 % (0-10); HEMATOCRIT 30 % (35-52); LYMPHOCYTES # (AUTO) 0.7 10^3/uL (1.0-4.0); LYMPHOCYTES % (AUTO) 9 % (12-44); MEAN CORPUSCULAR HEMOGLOBIN 29 pg (25-34); MEAN CORPUSCULAR HGB CONC 33 g/dL (32-36); MEAN CORPUSCULAR VOLUME 85 fL (80-99); MEAN PLATELET VOLUME 9.8 fL (9.0-12.2); MONOCYTES # (AUTO) 0.6 10^3/uL (0.0-1.0); MONOCYTES % (AUTO) 8 % (0-12); NEUTROPHILS # (AUTO) 6.8 10^3/uL (1.8-7.8); NEUTROPHILS % (AUTO) 82 % (42-75); PLATELET COUNT 360 10^3/uL (130-400); WHITE BLOOD COUNT 8.2 10^3/uL (4.3-11.0)
[2021-12-25 05:58] LABS: POTASSIUM 3.4 MMOL/L (3.6-5.0)
[2021-12-25 05:59] LABS: CALCIUM 8.2 MG/DL (8.5-10.1)
[2021-12-25 06:03] LABS: CREATININE SERUM 0.75 MG/DL (0.60-1.30)
[2021-12-25] MEDS: inSUlin ASPART (NovoLOG) 1 UNIT/0.01 ML (CHARGE PER UNIT) SC SCH ×4 (06:14→20:06)
[2021-12-25] MEDS: RT-ALBUTEROL/IPRATROPIUM 3 ML (DUONEB) VIAL INH SCH ×2 (07:30→20:31)
[2021-12-25] MEDS ORDERED: lisINopril 10 MG (PRINIVIL) TABLET PO SCH (09:00)
[2021-12-25] MEDS: cefTRIAXone 1 GM IV (PRE-MIX) 50 ML IV SCH (09:17)
[2021-12-25] MEDS: ARTIFICAL TEARS 0.4 ML UNIT DOSE (REFRESH PLUS) OU SCH ×4 (09:21→20:05)
[2021-12-25] MEDS: AZITHROMYCIN 500 MG/NS 250 ML IVPB IV SCH ×2 (09:21)
[2021-12-25] MEDS ORDERED: LEVOTHYROXINE 125 MCG (LEVOTHROID) TABLET PO ONE (10:15)
--- NOTE | 2021-12-25 10:26 | History & Physical-Hospitalist ---
History of Present Illness HPI/Chief Complaint 86-year-old female presenting with complaints of dizziness and weakness. She states that for over 2 weeks she has been getting more dizzy and weak especially with standing or changing positions. She has some nausea when she gets dizzy as well. She has had some dry heaves and retching but no actual vomiting. She was having diarrhea up until 3 days ago after she took a single dose of Imodium which helped cause her stools to be more formed. She denies any pain or burning with urination but has had decreased urine output. She has had decreased appetite and oral intake in the last few weeks. Her primary care provider, Dr. Shah, has been out of the office so she has not seen him and her appointments have all been canceled and/or rescheduled several weeks out. Also the other day she was trying to put a box up on a shelf and it fell hitting her on the face. She denies having a loss of consciousness or change in her vision. She does occasionally have some pain behind her ears. She denies fever or chills. She does have some cough in the last few days but it is nonproductive. Just sitting on the bed and she does not feel bad and is not having dizziness. However, sitting up on the bed and moving makes her have dizziness. This gets worse when she tries to stand and walk. Upon my arrival the patient was alert oriented and finished breakfast. She reported some mild nausea for which she was given Zofran with resolution.She reports that she had not been feeling well for a week with cough felt like she was burning up at times but denied rigors and reports no significant sputum production also denying hemoptysis. She has not had previous problems with pneumonia. Her was with her and had not been ill himself. She still feels extremely weak but a little bit better denying shortness of breath. She has some mild chest discomfort with cough only and denies pleuritic pain. Date Seen 12/25/21 Time Seen by a Provider: 09:00 Attending Physician Chava Shah MD PCP Admitting Physician: Brandon Hayes MD Attending Physician: Brandon Hayes MD Referring Physician Date of Admission December 24, 2021 at 12:44 Home Medications & Allergies Home Medications Reviewed patient Home Medication Reconciliation performed by pharmacy medication reconciliations bottle house quality control technician and/or nursing. Patients Allergies have been reviewed. Allergies Allergies Coded Allergies atorvastatin (Verified Allergy, Unknown, 05/06/15) ibuprofen (Verified Allergy, Unknown, 05/06/15) loratadine (Verified Allergy, Unknown, 05/06/15) morphine (Verified Allergy, Unknown, 05/06/15) ofloxacin (Verified Allergy, Unknown, 05/06/15) Past Cvpljkp-Zguely-Qyocrc Hx Patient Social History Tobacco Use?: No Substance use?: No Alcohol Use?: No Pt feels they are or have been: No Immunizations Up To Date First/Initial COVID19 Vaccinat: 09/2020 Second COVID19 Vaccination Reji: 10/12/2020 Date of Pneumonia Vaccine: Feb 15, 2010 Seasonal Allergies Seasonal Allergies: Yes Current Status Advance Directives: No Communicates: Verbally Primary Language: Kyrgyz Preferred Spoken Language: Kyrgyz Sensory deficits: Vision impairment, Hearing impairment Implanted or Applied Medical D: None Past Medical History Surgeries: Gallbladder, Hysterectomy Heart Murmur, Hypertension UTI-Chronic Arthritis, Chronic Back Pain Hypothyroidsim, Diabetes, Non-Insulin dep Hearing Impairment: Hard of Hearing Breast Blood Disorders: No Review of Systems Constitutional: see HPI Physical Exam Physical Exam Vital Signs Vital Signs - First Documented 12/24/21 08:15 Temp 36.5 Pulse 107 Resp 23 B/P (MAP) 143/56 (85) Pulse Ox 97 O2 Delivery Room Air Capillary Refill : Less Than 3 Seconds Height, Weight, BMI Height: 5'0.00" Weight: 144lbs. 0.0oz. [id number]; 61.58 BMI Method: General Appearance: No Apparent Distress Respiratory: Chest Non Tender, No Accessory Muscle Use, No Respiratory Distress, Other (Rales in the right base to the right midlung field elsewhere clear no wheezing noted) Cardiovascular: Regular Rate, Rhythm, No Edema, No JVD, No Murmur, Gallop/S4 Gastrointestinal: Normal Bowel Sounds, No Organomegaly, No Pulsatile Mass, Non Tender, Soft Extremity: Normal Inspection, Normal Range of Motion, Non Tender, No Calf Tenderness, No Pedal Edema Neurologic/Psychiatric: Alert, Oriented x3 Results Results/Procedures Labs Laboratory Tests 12/24/21 08:25 12/24/21 16:41 12/25/21 00:05 12/25/21 05:20 Patient resulted labs reviewed. Assessment/Plan Admission Diagnosis 1. Probable right upper lobe pneumonia most likely as patient's white count was elevated and this was acute to subacute in onset in regards to symptoms in an individual previously well with no smoking history. Continue IV antibiotics but patient will need follow-up chest x-ray to make sure that there is resolution In roughly 4 weeks if this is not the case or there is no clinical improvement consider CT chest considering somewhat of an atypical nodular appearance on chest x-ray. 2. Mild hyponatremia resolving secondary to #1. 3. Weakness with fall secondary to #1. 4. Type 2 diabetes will change diet to 1200-calorie ADA hold metformin and apparently patient is on Rybelsus which we will be unable to obtain monitoring blood sugars currently in the 150 range. 5. Hypertension continue lisinopril. 6. On thyroid replacement will add TSH and continue L-thyroxine at current reported 125 mcg dose. Admission Status: Inpatient Order (span 2 midnights) Reason for Inpatient Admission: See admission diagnosis BRANDON HAYES MD December 25, 2021 10:25
[2021-12-26] MEDS: NS IV 1000 ML 1,000 ML IV SCH ×5 (00:55→23:43)
[2021-12-26 03:28] VITALS: BP 149/74
[2021-12-26] MEDS: inSUlin ASPART (NovoLOG) 1 UNIT/0.01 ML (CHARGE PER UNIT) SC SCH ×4 (05:58→20:17)
[2021-12-26] MEDS: LEVOTHYROXINE 125 MCG (LEVOTHROID) TABLET PO SCH (05:58)
[2021-12-26 06:25] LABS: BASOPHILS % (AUTO) 0 % (0-10); EOSINOPHILS # (AUTO) 0.1 10^3/uL (0.0-0.3); EOSINOPHILS % (AUTO) 1 % (0-10); HEMATOCRIT 30 % (35-52); HEMOGLOBIN 9.9 g/dL (11.5-16.0); LYMPHOCYTES # (AUTO) 0.8 10^3/uL (1.0-4.0); LYMPHOCYTES % (AUTO) 9 % (12-44); MEAN CORPUSCULAR HEMOGLOBIN 28 pg (25-34); MEAN CORPUSCULAR HGB CONC 33 g/dL (32-36); MEAN CORPUSCULAR VOLUME 86 fL (80-99); MEAN PLATELET VOLUME 9.3 fL (9.0-12.2); MONOCYTES # (AUTO) 0.5 10^3/uL (0.0-1.0); MONOCYTES % (AUTO) 6 % (0-12); NEUTROPHILS # (AUTO) 6.9 10^3/uL (1.8-7.8); NEUTROPHILS % (AUTO) 83 % (42-75); PLATELET COUNT 391 10^3/uL (130-400); WHITE BLOOD COUNT 8.3 10^3/uL (4.3-11.0)
[2021-12-26 06:34] LABS: POTASSIUM 3.4 MMOL/L (3.6-5.0)
[2021-12-26 06:35] LABS: CALCIUM 8.2 MG/DL (8.5-10.1)
[2021-12-26 06:39] LABS: CREATININE SERUM 0.7 MG/DL (0.60-1.30)
[2021-12-26] MEDS: RT-ALBUTEROL/IPRATROPIUM 3 ML (DUONEB) VIAL INH SCH ×2 (07:01→20:20)
[2021-12-26 07:43] VITALS: BP 166/79
[2021-12-26] MEDS ORDERED: KCL 20 MEQ TAB (K-DUR) PO NR (08:29)
[2021-12-26] MEDS: lisINopril 10 MG (PRINIVIL) TABLET PO SCH (08:35)
[2021-12-26] MEDS: ARTIFICAL TEARS 0.4 ML UNIT DOSE (REFRESH PLUS) OU SCH ×4 (08:35→22:13)
[2021-12-26] MEDS: cefTRIAXone 1 GM IV (PRE-MIX) 50 ML IV SCH (08:35)
[2021-12-26] MEDS: AZITHROMYCIN 250 MG TAB (ZITHROMAX) PO SCH (08:35)
[2021-12-26] MEDS ORDERED: LISI10TA25 PO (09:28)
[2021-12-26] MEDS ORDERED: LEVO125T6 PO (09:28)
[2021-12-26] MEDS ORDERED: GABA300C PO (09:28)
[2021-12-26] MEDS ORDERED: CARB15DR OP (09:29)
[2021-12-26] MEDS ORDERED: ACET-2267 PO (09:29)
--- NOTE | 2021-12-26 10:27 | Physical Therapy Evaluation ---
PT Evaluation-General Medical Diagnosis Admission Date December 24, 2021 at 12:44 Medical Diagnosis: UTI/pneumonia/hyponatremia/hypomagnesia Onset Date: December 24, 2021 Therapy Diagnosis Therapy Diagnosis: generalized weakness/debility Height/Weight Height (Feet): 5 Height (Inches): 0.00 Weight (Pounds): 144 Weight (Ounces): 0.0 Precautions Precautions/Isolations: Fall Prevention, Standard Precautions Referral Physician: Joss Reason for Referral: Evaluation/Treatment Medical History Pertinent Medical History: DM, HTN Current History ER secondary to dizziness/weakness, N&V, diarrhea Reviewed History: Yes Social History Home: Single Level Current Living Status: Spouse Entry Into Home: Stairs With Railing PT Steps Into Home: 3 Prior Prior Level of Function SCALE: Activities may be completed with or without assistive devices. 3-Fpumnqiceu-xrqynxb completes the activity by him/herself with no assistance from a helper. 5-Set-up or Clean-up Assistance-helper sets up or cleans up; patient completes activity. [place] assists only prior to or following the activity. 4-Supervision or Touching Assistance-helper provides verbal cues and/or touching/steadying and/or contact guard assistance as patient completes activity. Assistance may be provided throughout the activity or intermittently. 3-Partial/Moderate Assistance-helper does LESS THAN HALF the effort. [place] lifts, holds or supports trunk or limbs, but provides less than half the effort. 2-Substantial/Maximal Assistance-helper does MORE THAN HALF the effort. [place] lifts or holds trunk or limbs and provides more than half the effort. 6-Ahykrqwlv-dyisow does ALL the effort. Patient does none of the effort to complete the activity. Or, the assistance of 2 or more helpers is required for the patient to complete the activity. If activity was not attempted, code reason: 7-Patient Refused. 9-Not Applicable-not attempted and the patient did not perform the activity before the current illness, exacerbation or injury. 10-Not Attempted due to Environmental Limitations-(lack of equipment, weather restraints, etc.). 88-Not Attempted due to Medical Conditions or Safety Concerns. Bed Mobility: 6 Transfers (B,C,W/C): 6 Gait: 6 Stairs: 6 Indoor Mobility (Ambulation): Independent Stairs: Independent Prior Devices Use: None Prior Device Use: cane and FWW PT Evaluation-Current Subjective Patient agrees to PT. Spouse present. Objective Patient Orientation: Normal For Age Attachments: IV ROM/Strength ROM Lower Extremities bilateral LE WFL Strength Lower Extremities 3/5 grossly bilateral LE all planes Integumentary/Posture Bowel Incontinence: No Bladder Incontinence: No Posture WFL Neuromuscular (Tone, Coordination, Reflexes) grossly intact Sensory Vision: Functional Hearing: Impaired Transfers Lying to Sitting/Side of Bed(Q: 3 Sit to Stand (QC): 3 Chair/Fiy-qa-Vehwc Xfer(QC): 3 Toilet Transfer (QC): 3 Gait Does the Patient Walk?: Yes Mode of Locomotion: Walk Anticipated Mode of Locomotion: Walk Walk 10 feet (QC): 3 Walk 50 ft with 2 Turns(QC): 3 Walk 150 ft (QC): 88 Distance: 100' Gait Assistive Device: FWW Comments/Gait Description functional gait sequence/patient became "shaky" during ambulation due to fatigue Balance Sitting Static: Normal Sitting Dynamic: Normal Standing Static: Fair Standing Dynamic: Fair Assessment/Needs 86 y.o. female, will benefit from skilled PT to address functional strength and mobility to improve current LOF to safely return to home at maximum LOF. Rehab Potential: Fair PT Fdc Goals Fdc Goals PT Coke Still Cleaner Goals Time Frame: Jan 07, 2022 Roll Left & Right (QC): 6 Sit to Lying (QC): 6 Lying-Sitting on Side/Bed(QC): 6 Sit to Stand (QC): 6 Chair/Icq-ua-Xgdmd Xfer(QC): 6 Toilet Transfer (QC): 6 Walk 10 feet (QC): 6 Walk 50ft with 2 Turns (QC): 6 Walk 150 ft (QC): 6 PT Plan Problem List Problem List: Activity Tolerance, Functional Strength, Safety, Balance, Gait, Transfer, Bed Mobility Treatment/Plan Treatment Plan: Continue Plan of Care Treatment Plan: Bed Mobility, Education, Functional Strength, Gait, Safety, Therapeutic Exercise, Transfers Treatment Duration: Jan 07, 2022 Frequency: 6 times per week Estimated Hrs Per Day: .25 hour per day Patient and/or Family Agrees t: Yes Time/GCodes Time In: 945 Time Out: 1001 Total Billed Treatment Time: 16 Total Billed Treatment 1 visit EVModC 16 min RAJI LOUIS PT December 26, 2021 10:27
[2021-12-26] MEDS: ACETAMINOPHEN 500 MG TAB (TYLENOL) PO PRN (10:41)
[2021-12-26 11:39] VITALS: BP 166/79
--- NOTE | 2021-12-26 12:03 | Progress Note ---
Subjective Subjective/Events-last exam Pt states she is still feeling exhausted and weak and shaky when she got up with PT today. She denies significant jaw pain, says it hurts intermittently. Focused Exam Lactate Level 12/24/21 09:00: Lactic Acid Level 1.72 Objective Exam Last Set of Vital Signs Vital Signs Date Time Temp Pulse Resp B/P (MAP) Pulse Ox O2 Delivery O2 Flow Rate FiO2 12/26/21 11:39 36.8 78 18 166/79 (108) 96 Room Air 12/24/21 15:30 21 Capillary Refill : Less Than 3 Seconds I&O Intake and Output 12/26/21 00:00 Intake Total 2560 ml Output Total 2400 ml Balance 160 ml Intake Oral 1560 ml IV Total 1000 ml Output Urine Total 2400 ml # Bowel Movements 1 General: Alert Lungs: Clear to Auscultation, Normal Air Movement Heart: Regular Rate Abdomen: Normal Bowel Sounds, Soft Extremities: No Edema Neuro: Normal Speech Psych/Mental Status: Mood NL Results/Procedures Lab Laboratory Tests 12/25/21 15:24: Glucometer 169H 12/25/21 20:01: Glucometer 158H 12/26/21 05:34: Glucometer 157H 12/26/21 06:15: White Blood Count 8.3, Red Blood Count 3.50L, Hemoglobin 9.9L, Hematocrit 30L, Mean Corpuscular Volume 86, Mean Corpuscular Hemoglobin 28, Mean Corpuscular Hemoglobin Concent 33, Red Cell Distribution Width 13.1, Platelet Count 391, Mean Platelet Volume 9.3, Immature Granulocyte % (Auto) 1, Neutrophils (%) (Auto) 83H, Lymphocytes (%) (Auto) 9L, Monocytes (%) (Auto) 6, Eosinophils (%) (Auto) 1, Basophils (%) (Auto) 0, Neutrophils # (Auto) 6.9, Lymphocytes # (Auto) 0.8L, Monocytes # (Auto) 0.5, Eosinophils # (Auto) 0.1, Basophils # (Auto) 0.0, Immature Granulocyte # (Auto) 0.1, Sodium Level 134L, Potassium Level 3.4L, Chloride Level 105, Carbon Dioxide Level 16L, Anion Gap 13, Blood Urea Nitrogen 7, Creatinine 0.70, Estimat Glomerular Filtration Rate 84, BUN/Creatinine Ratio 10, Glucose Level 156H, Calcium Level 8.2L 12/26/21 10:48: Glucometer 220H Microbiology 12/24/21 Blood Culture - Preliminary, Resulted No growth 12/24/21 Urine Culture - Preliminary, Resulted Assessment/Plan Assessment/Plan (1) Pneumonia involving right lung Status: Acute Assessment & Plan: Atypical appearance and in spite of normalized WBC and improved hyponatremia, she is still quite weak and feeling poorly, will get CT for further delineation. Continue azithromycin and ceftriaxone. Qualifiers: Qualified Codes: J18.9 - Pneumonia, unspecified organism (2) Generalized weakness Status: Acute Assessment & Plan: PT (3) Dizziness Status: Acute Assessment & Plan: Suspect secondary to pneumonia, hyponatremia and dehydration. (4) Hyponatremia Status: Acute Assessment & Plan: Suspect hypovolemic. Improving, continue IVF. (5) Hypothyroidism Status: Chronic Assessment & Plan: TSH okay on this admit, resume home levothyroxine (6) DVT prophylaxis Status: Acute Assessment & Plan: Enoxaparin BUDDY RUBIO MD December 26, 2021 12:03
[2021-12-26] MEDS: ENOXAPARIN 60 MG/0.6 ML (LOVENOX) SYR SQ SCH ×2 (13:02→23:42)
--- NOTE | 2021-12-26 13:16 | Diagnostic Imaging Report ---
PROCEDURE: CT chest without contrast. TECHNIQUE: Multiple contiguous axial images were obtained through the chest without the use of intravenous contrast. Auto Exposure Controls were utilized during the CT exam to meet ALARA standards for radiation dose reduction. INDICATION: Pneumonia. Abnormal chest x-ray. History of previous right mastectomy. Comparison with chest x-ray from 12/24/2021. FINDINGS: There is moderate right pleural effusion. Small left pleural effusion. Heart is not enlarged. There is moderate atelectasis in the right lung base. There is dense consolidated alveolar infiltrate posteriorly in the right upper lobe. The left lung is clear. No parenchymal masses are seen. No mediastinal or hilar adenopathy pathologic size. No axillary adenopathy has developed. There are no blastic or lytic bony changes. IMPRESSION: 1. There is consolidated infiltrate in the right upper lobe consistent with pneumonia. 2. There is a moderate right pleural effusion with associated atelectasis of the right lung base. Dictated by: Dictated on workstation # [id number]
[2021-12-26 15:50] VITALS: BP 163/72
[2021-12-26 19:37] VITALS: BP 180/74
[2021-12-26] MEDS ORDERED: lisINopril 5 MG (PRINIVIL) TABLET PO ONE (20:00)
[2021-12-26] MEDS ORDERED: lisINopril 5 MG (PRINIVIL) TABLET ONE (20:33)
[2021-12-27] VITALS (7 sets, daily range): BP systolic 130–193; BP diastolic 59–83
[2021-12-27] MEDS: inSUlin ASPART (NovoLOG) 1 UNIT/0.01 ML (CHARGE PER UNIT) SC SCH ×4 (05:11→20:24)
[2021-12-27] MEDS: LEVOTHYROXINE 125 MCG (LEVOTHROID) TABLET PO SCH (06:19)
[2021-12-27] MEDS: NS IV 1000 ML 1,000 ML IV SCH ×3 (06:20→23:49)
[2021-12-27] MEDS: RT-ALBUTEROL/IPRATROPIUM 3 ML (DUONEB) VIAL INH SCH ×2 (08:13→21:22)
[2021-12-27] MEDS: cefTRIAXone 1 GM IV (PRE-MIX) 50 ML IV SCH (09:03)
[2021-12-27] MEDS: lisINopril 10 MG (PRINIVIL) TABLET PO SCH (09:04)
[2021-12-27] MEDS: AZITHROMYCIN 250 MG TAB (ZITHROMAX) PO SCH (09:04)
[2021-12-27] MEDS: ARTIFICAL TEARS 0.4 ML UNIT DOSE (REFRESH PLUS) OU SCH ×4 (09:04→20:24)
[2021-12-27 09:39] LABS: HEMATOCRIT 33 % (35-52); HEMOGLOBIN 10.7 g/dL (11.5-16.0); MEAN CORPUSCULAR HEMOGLOBIN 29 pg (25-34); MEAN CORPUSCULAR HGB CONC 33 g/dL (32-36); MEAN CORPUSCULAR VOLUME 88 fL (80-99); MEAN PLATELET VOLUME 9.5 fL (9.0-12.2); PLATELET COUNT 457 10^3/uL (130-400); WHITE BLOOD COUNT 8.1 10^3/uL (4.3-11.0)
[2021-12-27 10:04] LABS: POTASSIUM 3.2 MMOL/L (3.6-5.0)
[2021-12-27 10:05] LABS: CALCIUM 8.6 MG/DL (8.5-10.1)
[2021-12-27 10:10] LABS: CREATININE SERUM 0.73 MG/DL (0.60-1.30)
--- NOTE | 2021-12-27 11:41 | Physical Therapy Daily Note ---
PT Daily Note-Current Subjective Patient reports she is feeling better. Agrees to PT. Mental Status Patient Orientation: Normal For Age Attachments: IV Transfers SCALE: Activities may be completed with or without assistive devices. 7-Zfjqoahgff-etdlvvg completes the activity by him/herself with no assistance from a helper. 5-Set-up or Clean-up Assistance-helper sets up or cleans up; patient completes activity. [place] assists only prior to or following the activity. 4-Supervision or Touching Assistance-helper provides verbal cues and/or touching/steadying and/or contact guard assistance as patient completes activity. Assistance may be provided throughout the activity or intermittently. 3-Partial/Moderate Assistance-helper does LESS THAN HALF the effort. [place] lifts, holds or supports trunk or limbs, but provides less than half the effort. 2-Substantial/Maximal Assistance-helper does MORE THAN HALF the effort. [place] lifts or holds trunk or limbs and provides more than half the effort. 1-Otedjdxdp-bocrzz does ALL the effort. Patient does none of the effort to complete the activity. Or, the assistance of 2 or more helpers is required for the patient to complete the activity. If activity was not attempted, code reason: 7-Patient Refused. 9-Not Applicable-not attempted and the patient did not perform the activity before the current illness, exacerbation or injury. 10-Not Attempted due to Environmental Limitations-(lack of equipment, weather restraints, etc.). 88-Not Attempted due to Medical Conditions or Safety Concerns. Sit to Stand (QC): 4 Gait Training Distance: 200' Walk 10 feet (QC): 4 Walk 50 ft with 2 Turns(QC): 4 Walk 150 ft (QC): 4 Gait Assistive Device: FWW slow, steady gait sequence Assessment Patient remains up in recliner with needs met. Patient fatigues with minimal activity. Improved functional endurance. PT Apartment Maintenance Manager Goals Penitentiary Goals PT [facility]itentiary Goals Time Frame: Jan 07, 2022 Roll Left & Right (QC): 6 Sit to Lying (QC): 6 Lying-Sitting on Side/Bed(QC): 6 Sit to Stand (QC): 6 Chair/Hqf-no-Qfccg Xfer(QC): 6 Toilet Transfer (QC): 6 Walk 10 feet (QC): 6 Walk 50ft with 2 Turns (QC): 6 Walk 150 ft (QC): 6 PT Plan Treatment/Plan Treatment Plan: Continue Plan of Care Treatment Plan: Bed Mobility, Education, Functional Strength, Gait, Safety, Therapeutic Exercise, Transfers Treatment Duration: Jan 07, 2022 Frequency: 6 times per week Estimated Hrs Per Day: .25 hour per day Patient and/or Family Agrees t: Yes Time/GCodes Time In: 1055 Time Out: 1107 Total Billed Treatment Time: 12 Total Billed Treatment 1 visit FA 12 min RAJI LOUIS PT December 27, 2021 11:41
[2021-12-27] MEDS ORDERED: KCL 20 MEQ TAB (K-DUR) PO ONE (11:45)
--- NOTE | 2021-12-27 11:49 | Progress Note ---
Subjective Subjective/Events-last exam Afebrile, states she was feeling poorly this morning, but better now that she got cleaned up. She is still feeling very weak, but wants to go home rather than rehab or SNF if possible. Objective Exam Last Set of Vital Signs Vital Signs Date Time Temp Pulse Resp B/P (MAP) Pulse Ox O2 Delivery O2 Flow Rate FiO2 12/27/21 08:15 95 Room Air 12/27/21 07:39 36.6 68 18 185/76 (112) 12/24/21 15:30 21 Capillary Refill : Less Than 3 Seconds I&O Intake and Output 12/27/21 00:00 Intake Total 2690 ml Output Total 2675 ml Balance 15 ml Intake Oral 1690 ml IV Total 1000 ml Output Urine Total 2675 ml General: Alert, No Acute Distress Lungs: Clear to Auscultation, Normal Air Movement Heart: Regular Rate, No Murmurs Neuro: Normal Speech Psych/Mental Status: Mood NL Results/Procedures Lab Laboratory Tests 12/26/21 15:39: Glucometer 159H 12/26/21 20:14: Glucometer 128H 12/27/21 05:01: Glucometer 128H 12/27/21 09:25: White Blood Count 8.1, Red Blood Count 3.72L, Hemoglobin 10.7L, Hematocrit 33L, Mean Corpuscular Volume 88, Mean Corpuscular Hemoglobin 29, Mean Corpuscular Hemoglobin Concent 33, Red Cell Distribution Width 13.2, Platelet Count 457H, Mean Platelet Volume 9.5, Sodium Level 136, Potassium Level 3.2L, Chloride Level 106, Carbon Dioxide Level 16L, Anion Gap 14, Blood Urea Nitrogen 5L, Creatinine 0.73, Estimat Glomerular Filtration Rate 80, BUN/Creatinine Ratio 7, Glucose Level 183H, Calcium Level 8.6 12/27/21 10:25: Glucometer 174H Microbiology 12/24/21 Blood Culture - Preliminary, Resulted No growth 12/24/21 Urine Culture - Final, Complete Mixed Bacterial Andreia Radiology CT chest 12/26/21: IMPRESSION: 1. There is consolidated infiltrate in the right upper lobe consistent with pneumonia. 2. There is a moderate right pleural effusion with associated atelectasis of the right lung base. Assessment/Plan Assessment/Plan (1) Pneumonia involving right lung Status: Acute Assessment & Plan: Atypical appearance and in spite of normalized WBC and improved hyponatremia, she is still quite weak and feeling poorly, will get CT for further delineation. Continue azithromycin and ceftriaxone. 12/27- CT consistent with pneumonia, clinically continues to improve slowly. Qualifiers: Qualified Codes: J18.9 - Pneumonia, unspecified organism (2) Generalized weakness Status: Acute Assessment & Plan: PT 12/27 discussed rehab/SNF, she wants to try to work with PT today and hopes to go home tomorrow (3) Dizziness Status: Acute Assessment & Plan: Suspect secondary to pneumonia, hyponatremia and dehydration. (4) Hyponatremia Status: Resolved Assessment & Plan: Suspect hypovolemic. Improving, continue IVF. (5) Hypothyroidism Status: Chronic Assessment & Plan: TSH okay on this admit, resume home levothyroxine (6) DVT prophylaxis Status: Acute Assessment & Plan: Enoxaparin BUDDY RUBIO MD December 27, 2021 11:49
[2021-12-27] MEDS: ENOXAPARIN 60 MG/0.6 ML (LOVENOX) SYR SQ SCH ×2 (13:01→23:49)
--- NOTE | 2021-12-27 15:47 | Physician Query Clarification ---
Physician Query-General Query to Physician: The medical record reflects the following clinical evidence: Clinical Indicators: Admission VS/LABS: Vital Signs: HR 107, RR 23, BP 143/56, SpO2 97% sat on RA T 36.5 increased to 38.0 within 12 hours, WBC 12.4, Lactic acid 1.72. BC x 2 no growth to date, urine culture with Mixed bacterial shae Risk Factor(s): Advanced age, Pneumonia Treatment: ER: NS 1L Ceftriaxone, Azithromycin IV, 1. Sepsis, unspecified organism, present on admission 2. Other explanation of clinical findings 3. Unable to determine (no explanation for clinical findings) Please clarify and document your clinical opinion in the progress notes and discharge summary including the definitive and/or presumptive diagnosis, (suspected or probable), related to the above clinical findings. Please include clinical findings supporting your diagnosis. Marilin Mcdaniels MSN, RN Clinical Nurse Specialist [phone] [email or web address] PHYSICIAN RESPONSE: Based on the clinical findings in the record, please respond to the query above on this document as an addendum. Physician Response: Physician Response 1 If you have questions please contact: Cool Roofing Installer: Ext: Thank you for your time and cooperation. Clinical Rubber Chemist/Cool Roofing Installer This is a permanent part of the medical record MARILIN MCDANIELS December 27, 2021 15:47 BUDDY RUBIO MD December 28, 2021 11:34
[2021-12-27] MEDS: ACETAMINOPHEN 500 MG TAB (TYLENOL) PO PRN (20:36)
[2021-12-28 00:26] VITALS: BP 165/68
[2021-12-28 04:34] VITALS: BP 172/84
[2021-12-28] MEDS: NS IV 1000 ML 1,000 ML IV SCH ×2 (06:13→10:55)
[2021-12-28] MEDS: LEVOTHYROXINE 125 MCG (LEVOTHROID) TABLET PO SCH (06:13)
[2021-12-28] MEDS: inSUlin ASPART (NovoLOG) 1 UNIT/0.01 ML (CHARGE PER UNIT) SC SCH (06:17)
[2021-12-28 07:24] VITALS: BP 194/80
--- NOTE | 2021-12-28 08:30 | Physical Therapy Daily Note ---
PT Daily Note-Current Subjective Pt. sitting up in recliner with at her side. Pt. comments that she feels better and segun every day and has had great car from nursing and PT. Pain Location: No Pain Reported Mental Status Patient Orientation: Normal For Age Attachments: IV Transfers SCALE: Activities may be completed with or without assistive devices. 3-Jffpmkxtuk-lscsvqv completes the activity by him/herself with no assistance from a helper. 5-Set-up or Clean-up Assistance-helper sets up or cleans up; patient completes activity. [place] assists only prior to or following the activity. 4-Supervision or Touching Assistance-helper provides verbal cues and/or touching/steadying and/or contact guard assistance as patient completes activity. Assistance may be provided throughout the activity or intermittently. 3-Partial/Moderate Assistance-helper does LESS THAN HALF the effort. [place] lifts, holds or supports trunk or limbs, but provides less than half the effort. 2-Substantial/Maximal Assistance-helper does MORE THAN HALF the effort. [place] lifts or holds trunk or limbs and provides more than half the effort. 1-Qhxtjdcae-luxlup does ALL the effort. Patient does none of the effort to complete the activity. Or, the assistance of 2 or more helpers is required for the patient to complete the activity. If activity was not attempted, code reason: 7-Patient Refused. 9-Not Applicable-not attempted and the patient did not perform the activity before the current illness, exacerbation or injury. 10-Not Attempted due to Environmental Limitations-(lack of equipment, weather restraints, etc.). 88-Not Attempted due to Medical Conditions or Safety Concerns. Sit to Stand (QC): 6 cued for us of hands on arms of chair to stand and safe backing to chair to sit Gait Training Does the Patient Walk?: Yes Walk 10 feet (QC): 4 Walk 50 ft with 2 Turns(QC): 4 Walk 150 ft (QC): 4 Gait Persons Needed: 1 Gait Assistive Device: FWW SBA and assist only for IV, slow but safe gait with even step length and good turning technique Exercises Seated Therapy Exercises: Ankle pumps, Sit to stand, Long arc quads, Hip flexion, Hip abd/add Seated Reps: 10 Treatments ex and gait as above, up i chair after Rx with jake suh at hand and there also Assessment Current Status: Good Progress PT Mcc Goals Mcc Goals PT Traffic Workforce Representative Goals Time Frame: Jan 07, 2022 Roll Left & Right (QC): 6 Sit to Lying (QC): 6 Lying-Sitting on Side/Bed(QC): 6 Sit to Stand (QC): 6 Chair/Osc-md-Bdyks Xfer(QC): 6 Toilet Transfer (QC): 6 Walk 10 feet (QC): 6 Walk 50ft with 2 Turns (QC): 6 Walk 150 ft (QC): 6 PT Plan Treatment/Plan Treatment Plan: Continue Plan of Care Treatment Plan: Bed Mobility, Education, Functional Strength, Gait, Safety, Therapeutic Exercise, Transfers Treatment Duration: Jan 07, 2022 Frequency: 6 times per week Estimated Hrs Per Day: .25 hour per day Patient and/or Family Agrees t: Yes Safety Risks/Education Patient Education: Gait Training, Transfer Techniques, Correct Positioning, Safety Issues Teaching Recipient: Patient Teaching Methods: Demonstration, Discussion Response to Teaching: Verbalize Understanding, Return Demonstration, Reinforcement Needed Time/GCodes Time In: 800 Time Out: 823 Total Billed Treatment Time: 23 Total Billed Treatment 1,GT15m,Ex8m LEONCIO BENITES BRAZING MACHINE OPERATOR AUTOMATIC December 28, 2021 08:30
[2021-12-28 08:46] LABS: HEMATOCRIT 33 % (35-52); HEMOGLOBIN 10.9 g/dL (11.5-16.0); MEAN CORPUSCULAR HEMOGLOBIN 28 pg (25-34); MEAN CORPUSCULAR HGB CONC 33 g/dL (32-36); MEAN CORPUSCULAR VOLUME 86 fL (80-99); MEAN PLATELET VOLUME 9.3 fL (9.0-12.2); PLATELET COUNT 548 10^3/uL (130-400); WHITE BLOOD COUNT 7.3 10^3/uL (4.3-11.0)
[2021-12-28] MEDS: ARTIFICAL TEARS 0.4 ML UNIT DOSE (REFRESH PLUS) OU SCH (08:47)
[2021-12-28] MEDS: AZITHROMYCIN 250 MG TAB (ZITHROMAX) PO SCH (08:47)
[2021-12-28] MEDS: cefTRIAXone 1 GM IV (PRE-MIX) 50 ML IV SCH (08:47)
[2021-12-28] MEDS ORDERED: lisINopril 10 MG (PRINIVIL) TABLET PO SCH (09:00)
[2021-12-28 09:02] LABS: POTASSIUM 3.7 MMOL/L (3.6-5.0)
[2021-12-28 09:03] LABS: CALCIUM 8.9 MG/DL (8.5-10.1)
[2021-12-28 09:07] LABS: CREATININE SERUM 0.68 MG/DL (0.60-1.30)
[2021-12-28] MEDS: RT-ALBUTEROL/IPRATROPIUM 3 ML (DUONEB) VIAL INH SCH (10:50)
[2021-12-28 11:18] VITALS: BP 187/84
[2021-12-28] MEDS ORDERED: LISI10TA25 PO (11:21)
[2021-12-28] MEDS ORDERED: CEFD300C3 PO (11:21)
--- NOTE | 2021-12-28 11:25 | D/C HH Face to Face Order ---
D/C Face to Face Orders Instructions for Patient Patient Instructions/FollowUp: Follow up with primary doctor within a week of discharge. Physician to follow Patient: [facility] Discharge Diet for Home: ADA Diet Patient Data-Allergies,Ht & Wt Patient Allergies: Coded Allergies: atorvastatin (Verified Allergy, Unknown, 05/06/15) ibuprofen (Verified Allergy, Unknown, 05/06/15) loratadine (Verified Allergy, Unknown, 05/06/15) morphine (Verified Allergy, Unknown, 05/06/15) ofloxacin (Verified Allergy, Unknown, 05/06/15) Height (Feet): 5 Height (Inches): 0.00 Weight (Pounds): 144 Weight (Ounces): 0.0 Home Health Need/Face to Face Date of Face to Face: December 28, 2021 Clinical Findings: Generalized weakness and fatigue I have seen Pt dyjr-lr-[id number]: Yes Discharged To: Home Diagnosis/Conditions: See problem list Patient is Homebound due to: Chi fall risk due to instabilty, Muscle weakness Homebound Status Due to the above stated illness, injury or surgical procedure (medical condition or diagnosis) and associated clinical findings, the patient is homebound because of his/her inability to leave home except with aid of a supportive device and/or person AND leaving the home requires a considerable and taxing effort or is medically contraindicated. Pt req the following assistanc: Aid of another person, Walker Home Health Nursing Orders Home Health Services Order: Nursing Services, Physical Therapy-Evaluate & Treat Home Health Infusion Therapy Line Start Date: December 24, 2021 Therapy Orders Therapy Orders: Physical Therapy Certify Stmt I certify that this patient is under my care and that I, a nurse practitioner or a physician; a news production assistant working with me, had a face to face encounter that - meets the physician face to face encounter requirements with this patient as dated. Diagnosis/Problems Problems/Diagonsis (1) Pneumonia involving right lung Status: Acute Qualifiers: Qualified Codes: J18.9 - Pneumonia, unspecified organism (2) Hyponatremia Status: Resolved (3) Hypothyroidism Status: Chronic (4) Generalized weakness Status: Acute (5) Hypomagnesemia Status: Acute BUDDY RUBIO MD December 28, 2021 11:25
--- NOTE | 2021-12-28 11:27 | Discharge Summary ---
Discharge Summary Hospital Course Problems/Diagnosis: (1) Pneumonia involving right lung Status: Acute Assessment & Plan: Atypical appearance and in spite of normalized WBC and improved hyponatremia, she is still quite weak and feeling poorly, will get CT for further delineation. Continue azithromycin and ceftriaxone. 12/27- CT consistent with pneumonia, clinically continues to improve slowly. 12/28- completed 5 day course of azithromycin and ceftriaxone, will continue 2 more days of cefdinir outpatient Qualifiers: Qualified Codes: J18.9 - Pneumonia, unspecified organism (2) Generalized weakness Status: Acute Assessment & Plan: PT 12/27 discussed rehab/SNF, she wants to try to work with PT today and hopes to go home tomorrow 12/28 doing fairly well with PT and walker, has walker at home, discharged with PT (3) Dizziness Status: Resolved Resolution Date/Time: 12/28/21 @ 11:26 Assessment & Plan: Suspect secondary to pneumonia, hyponatremia and dehydration. (4) Hyponatremia Status: Resolved Resolution Date/Time: 12/27/21 @ 11:49 Assessment & Plan: Suspect hypovolemic, resolved. (5) Hypothyroidism Status: Chronic Assessment & Plan: TSH okay on this admit, resume home levothyroxine Hospital Course Date of Admission: December 24, 2021 at 12:44 Admission Diagnosis : Family Physician/Provider: Chava Shah MD Date of Discharge: 12/28/21 Discharge Diagnosis: See problem list Hospital Course: See problem list Labs and Pending Lab Test: Laboratory Tests 12/27/21 15:03: Glucometer 97 12/27/21 20:23: Glucometer 123H 12/28/21 06:16: Glucometer 100 12/28/21 08:30: White Blood Count 7.3, Red Blood Count 3.86, Hemoglobin 10.9L, Hematocrit 33L, Mean Corpuscular Volume 86, Mean Corpuscular Hemoglobin 28, Mean Corpuscular Hemoglobin Concent 33, Red Cell Distribution Width 13.2, Platelet Count 548H, Mean Platelet Volume 9.3, Sodium Level 136, Potassium Level 3.7, Chloride Level 108H, Carbon Dioxide Level 17L, Anion Gap 11, Blood Urea Nitrogen 3L, Creatinine 0.68, Estimat Glomerular Filtration Rate 85, BUN/Creatinine Ratio 4, Glucose Level 149H, Calcium Level 8.9 12/28/21 11:17: Glucometer 156H Microbiology 12/24/21 Blood Culture - Preliminary, Resulted No growth 12/24/21 Urine Culture - Final, Complete Mixed Bacterial Andreia Home Meds Active Cefdinir 300 Mg Capsule 300 Mg PO BID 2 Days Lisinopril 10 Mg Tablet 10 Mg PO DAILY Reported Refresh Tears (Carboxymethylcellulose Sodium) 0.5 % Drops 1-2 Drops OP QID PRN Tylenol Extra Strength (Acetaminophen) 500 Mg Tablet 500-1,000 Mg PO Q8H PRN Neurontin (Gabapentin) 300 Mg Capsule 300 Mg PO TID Levothyroxine Sodium 125 Mcg Tablet 125 Mcg PO DAILY Pantoprazole Sodium 40 Mg Tablet.dr 40 Mg PO DAILY Sucralfate 1 Gram Tablet 1 Gm PO TIDAC Metformin HCl 1,000 Mg Tablet 1,000 Mg PO BID WITH MEALS Assessment/Pt DC Instructions Follow up with primary physician within a week of discharge. Discharge Diet: ADA Diet Activity as Tolerated: Yes Discharge Physical Examination Allergies: Coded Allergies: atorvastatin (Verified Allergy, Unknown, 05/06/15) ibuprofen (Verified Allergy, Unknown, 05/06/15) loratadine (Verified Allergy, Unknown, 05/06/15) morphine (Verified Allergy, Unknown, 05/06/15) ofloxacin (Verified Allergy, Unknown, 05/06/15) General Appearance: No Apparent Distress Respiratory: Lungs Clear, Normal Breath Sounds Cardiovascular: Regular Rate, Rhythm, No Murmur Gastrointestinal: Normal Bowel Sounds, Non Tender, Soft Extremity: No Pedal Edema Skin: Normal Color, Warm/Dry Neurologic/Psychiatric: Alert, Normal Mood/Affect BUDDY RUBIO MD December 28, 2021 11:27
[2021-12-28 12:48] VITALS: BP 187/84
== END 2021-12-28 12:14 | disposition home health service (06) | DRG 871 ==
LOC: EDUNIT# 08:11 → ER FS 08:14 → 4TH 12:44
PROVIDERS: ADMIT Internal Medicine; ATTEND Family Medicine
DX: A41.9 Sepsis, unspecified organism (principal); J18.9 Pneumonia, unspecified organism; E87.1 Hypo-osmolality and hyponatremia; S00.12XA Contusion of left eyelid and periocular area, initial encounter; N30.90 Cystitis, unspecified without hematuria; I10 Essential (primary) hypertension; E03.9 Hypothyroidism, unspecified; E11.9 Type 2 diabetes mellitus without complications; Z20.822 Contact with and (suspected) exposure to COVID-19; E83.42 Hypomagnesemia; M19.91 Primary osteoarthritis, unspecified site; H91.90 Unspecified hearing loss, unspecified ear; Z85.3 Personal history of malignant neoplasm of breast; Z79.84 Long term (current) use of oral hypoglycemic drugs; Z90.11 Acquired absence of right breast and nipple; Z88.6 Allergy status to analgesic agent; Z88.1 Allergy status to other antibiotic agents; Z88.5 Allergy status to narcotic agent; Z88.8 Allergy status to other drugs, medicaments and biological substances; W20.8XXA Other cause of strike by thrown, projected or falling object, initial encounter
CPT/HCPCS: 36415; 70450; 70486; 71045; 71250; 72125; 80048; 80053; 81000; 82947; 83605; 83690; 83735; 83874; 83880; 84145; 84443; 84484; 85007; 85025; 85027; 85610; 85730; 87040; 87088; 87636; 93005; 93041; 94640; 94760

== ENCOUNTER → 2022-12-12 | Outpatient (CLI) | payer MEDICARE, OTHER ==
[~2022-12-12] MED LIST changes: +ACET-2267 PO; +CARB15DR OP; +CEFD300C3 PO; +GABA300C PO; +GABA300S3 PO; +LEVO125C4 PO; +LEVO125T6 PO; +LISI10TA25 PO; +METF-399 PO; +PANT40TA52 PO; +RYBELSUS; +SUCR1TAB PO
== END ==
LOC: CARDFS 09:33
PROVIDERS: ATTEND Nurse Practitioner Family
DX: I35.1 Nonrheumatic aortic (valve) insufficiency (principal)
CPT/HCPCS: 93306

== ENCOUNTER 2023-02-03 10:08 | Emergency (ER) | payer MEDICARE, OTHER ==
[2023-02-03 10:20] VITALS: BP 169/75
--- NOTE | 2023-02-03 10:26 | ED General ---
General Chief Complaint: Cough/Cold/Flu Symptoms Stated Complaint: SORE THROAT; GENERAL PAIN Nursing Triage Note: PT REPORTS SHE HAS HAD A COUGH, SORE THROAT, HEADACHE, AND PRESSURE BEHIND BOTH EARS FOR 3 DAYS. COUGH IS PRODUCTIVE AND CLEAR SPUTUM. Source of Information: Patient, Old Records Exam Limitations: No Limitations History of Present Illness Date Seen by Provider: Feb 03, 2023 Time Seen by Provider: 10:10 Initial Comments 87yoF with PMH of HTN and DM most pertinently coming in due to URI type symptoms. She has has sinus drainage since with sore throat and some cough. She also is feeling sinus pressure. No fever, chest pain, SOA, abd pain, n/v/d, weakness, numbness, or any other concerns. She has tried tylenol thus far. Allergies and Home Medications Allergies Coded Allergies: atorvastatin (Verified Allergy, Unknown, 05/06/15) ibuprofen (Verified Allergy, Unknown, 05/06/15) loratadine (Verified Allergy, Unknown, 05/06/15) morphine (Verified Allergy, Unknown, 05/06/15) ofloxacin (Verified Allergy, Unknown, 05/06/15) Patient Home Medication List Home Medication List Reviewed: Yes Acetaminophen (Tylenol Extra Strength) 500 Mg Tablet, 500-1,000 MG PO Q8H PRN for PAIN-MILD (1-4), (Reported) Entered as Reported by: DOROTEO PAZ on 12/26/21928 Carboxymethylcellulose Sodium (Refresh Tears) 0.5 % Drops, 1-2 DROPS OP QID PRN for DRY EYES, (Reported) Entered as Reported by: DOROTEO PAZ on 12/26/21928 Cefdinir (Cefdinir) 300 Mg Capsule, 300 MG PO BID Prescribed by: BUDDY RUBIO on 12/28/21 1121 Cetirizine HCl (Cetirizine HCl) 10 Mg Tablet, 10 MG PO DAILY Prescribed by: SOFIE HICKS on 02/03/23 105 Fluticasone Propionate (Flonase Allergy Relief) 50 Mcg/Actuation Mereta.susp, 1 SPRAY NS DAILY Prescribed by: SOFIE HICKS on 02/03/23 105 Gabapentin (Neurontin) 300 Mg Capsule, 300 MG PO TID, (Reported) Entered as Reported by: DOROTEO PAZ on 12/26/21927 Levothyroxine Sodium (Levothyroxine Sodium) 125 Mcg Tablet, 125 MCG PO DAILY, (Reported) Entered as Reported by: DOROTEO PAZ on 12/26/21927 Lisinopril (Lisinopril) 10 Mg Tablet, 10 MG PO DAILY Prescribed by: BUDDY RUBIO on 12/28/21 112 Metformin HCl (Metformin HCl) 1,000 Mg Tablet, 1,000 MG PO BID WITH MEALS, (Reported) Entered as Reported by: JIMMY DUNCAN on 12/24/21 144 Pantoprazole Sodium (Pantoprazole Sodium) 40 Mg Tablet.dr, 40 MG PO DAILY, (Reported) Entered as Reported by: JIMMY DUNCAN on 12/24/21 144 Sucralfate (Sucralfate) 1 Gram Tablet, 1 GM PO TIDAC, (Reported) Entered as Reported by: JIMMY DUNCAN on 12/24/21 144 Review of Systems Review of Systems Constitutional: No fever EENTM: see HPI Respiratory: see HPI Cardiovascular: no symptoms reported Gastrointestinal: no symptoms reported Genitourinary: no symptoms reported Past Rgyyjoh-Laipsk-Dgvpks Hx Patient Social History Tobacco Use?: No Use of E-Cig and/or Vaping dev: No Substance use?: No Alcohol Use?: No Pt feels they are or have been: No Immunizations Up To Date First/Initial COVID19 Vaccinat: 09/2020 Second COVID19 Vaccination Reji: 10/12/2020 Third COVID19 Vaccination Date: 07/05/2021 Seasonal Allergies Seasonal Allergies: Yes Past Medical History Surgery/Hospitalization HX: None Surgeries: Yes (RIGHT BREAST LUMPECTOMY, BACK SX, RIGHT BREAST MASTECTOMY) Gallbladder, Hysterectomy Respiratory: No Cardiac: Yes Heart Murmur, Hypertension Neurological: No Reproductive Disorders: No Genitourinary: Yes UTI-Chronic Gastrointestinal: No Musculoskeletal: Yes Arthritis, Chronic Back Pain Endocrine: Yes Hypothyroidsim, Diabetes, Non-Insulin dep Hearing Impairment: Hard of Hearing Cancer: Yes Breast Psychosocial: No Integumentary: No Blood Disorders: No Physical Exam Vital Signs Vital Signs - First Documented 02/03/23 10:20 Temp 36.5 Pulse 114 Resp 16 B/P (MAP) 169/75 (106) Pulse Ox 96 O2 Delivery Room Air Capillary Refill : Less Than 3 Seconds Height, Weight, BMI Height: 5'0.00" Weight: 144lbs. 0.0oz. [id number]; 61.58 BMI Method: General Appearance: No Apparent Distress, WD/WN Eyes: Bilateral Eye Normal Inspection, Bilateral Eye PERRL HEENT: PERRL/EOMI, TMs Normal, Other (Mild oropharyngeal erythema without exudate, uvula midline, normal voice, no trismus) Neck: Full Range of Motion, Normal Inspection, Non Tender, Supple Respiratory: Chest Non Tender, No Accessory Muscle Use, No Respiratory Distress, Rales (Worse on the right lung base which cleared with subsequent breath) Cardiovascular: Regular Rate, Rhythm, No Edema, Normal Peripheral Pulses Gastrointestinal: No Distended Extremity: Normal Capillary Refill, Normal Inspection, Normal Range of Motion, Non Tender, No Calf Tenderness, No Pedal Edema Neurologic/Psychiatric: Alert, Normal Mood/Affect Skin: Normal Color, Warm/Dry Lymphatic: No Adenopathy Progress/Results/Core Measures Suspected Sepsis SIRS Temperature: Pulse: 114 Respiratory Rate: 16 Blood Pressure 169 /75 Mean: 106 Results/Orders Lab Results Laboratory Tests Test 02/03/23 10:37 Range/Units My Orders Orders - SOFIE HICKS MD Chest Pa/Lat (2 View) (02/03/23 10:30) Covid 19 Inhouse Test (02/03/23 10:30) Vital Signs/I&O 02/03/23 10:20 Temp 36.5 Pulse 114 Resp 16 B/P (MAP) 169/75 (106) Pulse Ox 96 O2 Delivery Room Air Capillary Refill : Less Than 3 Seconds Blood Pressure Mean: 106 Progress Note : Progress Note 87-year-old female with above history coming in for URI type symptoms. ABCs were intact and vitals are stable on presentation. Physical exam reassuring including her being well-appearing, she did have some crackles in her right lung base which cleared with subsequent breaths, likely atelectasis. Chest x-ray ordered and interpreted by me showing no obvious pneumonia, normal cardiac silhouette, no pleural effusion. COVID test also sent. Patient likely has a viral illness which will improve with time. We will send a prescription for antihistamine. Diagnostic Imaging Diagonstic Imaging: Xray (chest) Comments NAME: EDSON ZABALA [facility] REC#: [id number] PT STATUS: REG ER : 1935 PHYSICIAN: SOFIE HICKS MD ADMIT DATE: 02/03/23/ER FS Draft Date of Exam:02/03/23 CHEST PA/LAT (2 VIEW) INDICATION: Productive cough and shortness of breath. PA and lateral chest obtained at 10:43 a.m. Heart and mediastinal silhouette are normal in appearance. The lungs are clear. There is no pneumothorax or pleural fluid. There are surgical clips in the right axillary region. IMPRESSION: No acute process in the chest. Dictated on workstation # [id number] Dict: 02/03/23 1046 Trans: 02/03/23 1047 CVB [id number] Interpreted by: KATHERINE HECTOR MD Electronically signed by: Departure Impression Primary Impression: URI (upper respiratory infection) Qualified Codes: J06.9 - Acute upper respiratory infection, unspecified Disposition: HOME, SELF-CARE Condition: Stable Departure-Patient Inst. Decision time for Depature: 11:00 Referrals: JUANITA MASCORRO MD (PCP) Primary Care Physician Patient Instructions: Viral Syndrome (DC) Add. Discharge Instructions: There are no signs of pneumonia today, no need for antibiotics at this time. Of course things can change, so have follow-up with your primary care provider, especially if you continue to worsen. Continue to take ibuprofen as needed for the pain. You can also try tea with honey for your sore throat. A prescription will be sent to your pharmacy that may help with your congestion as well. Typically these illnesses just need to run their course, and take roughly 7 to 10 days to improve. Scripts Fluticasone Propionate (Flonase Allergy Relief) 50 Mcg/Actuation Mereta.susp 1 SPRAY NS DAILY for 30 Days, #1 EACH 1 SPRAY EACH NARE DAILY Prov: SOFIE HICKS MD 02/03/23 Cetirizine HCl (Cetirizine HCl) 10 Mg Tablet 10 MG PO DAILY for 30 Days, #30 TAB Prov: SOFIE HICKS MD 02/03/23 SOFIE HICKS MD Feb 03, 2023 10:26
--- NOTE | 2023-02-03 10:47 | Diagnostic Imaging Report ---
INDICATION: Productive cough and shortness of breath. PA and lateral chest obtained at 10:43 a.m. Heart and mediastinal silhouette are normal in appearance. The lungs are clear. There is no pneumothorax or pleural fluid. There are surgical clips in the right axillary region. IMPRESSION: No acute process in the chest. Dictated by: Dictated on workstation # [id number]
[2023-02-03] MEDS ORDERED: FLUT9.9S NS (10:52)
[2023-02-03] MEDS ORDERED: CETI10TA17 PO (10:52)
== END 2023-02-03 11:00 | disposition home or self-care (01) ==
LOC: EDUNIT# 10:08 → ER FS 10:09
DX: J06.9 Acute upper respiratory infection, unspecified (principal); Z88.8 Allergy status to other drugs, medicaments and biological substances
CPT/HCPCS: 71046; 87636; 99283